=== PATIENT | male | born 1955 | race Caucasian/White ===

== ENCOUNTER 2020-07-01 10:40 | Outpatient (CLI) | payer MEDICARE, OTHER, SELFPAY ==
--- NOTE | ~2020-07-01 | MR_ITS ---
EXAMINATION: MR lumbar spine wo con DATE: 07/01/2020 11:37 INDICATION: Neurogenic claudication. Chronic low back pain with bilateral sciatica. TECHNIQUE: Magnetic resonance imaging (MRI) of the lumbar spine was performed without intravenous con trast. Sequences included sagittal T2-weighted FSE, sagittal STIR FSE, sagittal T1-weighted FSE, and axial T2-weighted FSE. COMPARISON: None FINDINGS: Bone alignment is normal. Vertebral body heights are normal. There is mildly decreased disc height from L1-L2 through L3-L4 and at L5-S1. The distal spinal cord signal intensity is normal. The conus medullaris is at L1. The bladder is markedly distended. There is mild atrophy of left kidney. The following disc levels are specifically discussed: L1-L2: The disc does not extend beyond the endplate margin. There is mild bilateral facet joint osteo arthritis. There is no neural foraminal stenosis. There is no central canal stenosis. L2-L3: The disc is bulging and has an annular fissure. There is severe bilateral facet joint osteoart hritis. There is mild bilateral neural foraminal stenosis. There is mild central canal stenosis. L3-L4: The disc is bulging and has an annular fissure. There is severe bilateral facet joint osteoart hritis. There is moderate right and mild left neural foraminal stenosis. There is mild central canal stenosis. L4-L5: The disc is bulging. There is severe right and moderate left facet joint osteoarthritis. There is mild bilateral neural foraminal stenosis. There is mild central canal stenosis. L5-S1: The disc is bulging. There is mild right and severe left facet joint osteoarthritis. There is mild bilateral neural foraminal stenosis. There is mild central canal stenosis. IMPRESSION: 1. Moderate lumbar spondylosis. Reviewed, dictated and finalized at location A.
== END 2020-07-01 10:41 | disposition home or self-care (01) ==
DX: M48.062 Spinal stenosis, lumbar region with neurogenic claudication (principal); M54.41 Lumbago with sciatica, right side; M54.42 Lumbago with sciatica, left side; G89.29 Other chronic pain; M47.816 Spondylosis without myelopathy or radiculopathy, lumbar region
CPT/HCPCS: 72148

== ENCOUNTER 2022-10-31 18:23 | Inpatient (IN) | payer MEDICARE, OTHER, SELFPAY ==
[2022-10-31] VITALS (9 sets, daily range): BP systolic 150–170; BP diastolic 87–95; PULSE 92–107; RESP 14–25; TEMP 36.6–36.7; O2SAT 94–96
--- NOTE | ~2022-10-31 | XR_ITS ---
EXAMINATION: XR chest 2V DATE: 10/31/2022 19:32 INDICATION: Heart failure. TECHNIQUE: Frontal and lateral views of the chest were obtained. COMPARISON: None. FINDINGS: There is no pneumonia, pleural effusion, or pneumothorax. The heart size is normal. There a re changes of anterior and posterior fusion procedures in cervical spine. There is an old healed righ t rib fracture. IMPRESSION: 1. No acute cardiopulmonary disease. Reviewed, dictated and finalized at location A. WIRE INSULATOR
--- NOTE | ~2022-10-31 | CT_ITS ---
CT Abdomen and Pelvis with contrast. History: Abdominal pain, testicular swelling. Spiral CT of the abdomen and pelvis was performed after the administration of intravenous contrast. 1 00 cc of Omnipaque 350 was administered intravenously without complication. Dose reduction technique was used on this scan by utilizing automated exposure control and iterative reconstruction technique. The dose-length product (DLP) was 1068.81 mGy-cm. Findings: Scans through the lung bases demonstrate mild atelectatic change. The liver, spleen, pancreas, gallbladder, and adrenal glands are within normal limits. There is moder ate to severe bilateral hydroureteronephrosis, left worse than right, extending to the level of the u rinary bladder. Ureters are tortuous bilaterally. No evidence of aortic aneurysm. No lymphadenopathy is seen. There is no evidence of bowel obstruction. There is no evidence to suggest acute appendicitis or dive rticulitis. Images through the pelvis were performed. Urinary bladder is markedly distended with extensive wall t hickening. There is mild infiltration of perivesical fat. Prostate gland is enlarged, and indents the bladder base. No ascites is seen. Impression: Urinary bladder wall thickening and infiltration of perivesical fat. These findings are suspicious fo r cystitis. Correlate with urinalysis. Moderate to severe bilateral hydroureteronephrosis with distended urinary bladder and enlarged prosta te gland. Findings could reflect chronic bladder outlet obstruction related to BPH. Neurogenic bladde r would be a potential alternative consideration. Underlying neoplasm cannot be completely excluded. Reviewed, dictated and finalized at [facility]. L VIAL GRINDER Impression: Urinary bladder wall thickening and infiltration of perivesical fat. These find ings are suspicious for cystitis. Correlate with urinalysis. Moderate to severe bilateral hydroureteronephrosis with distended urinary bladd er and enlarged prostate gland. Findings could reflect chronic bladder outlet o bstruction related to BPH. Neurogenic bladder would be a potential alternative consideration. Underlying neoplasm cannot be completely excluded.
--- NOTE | 2022-10-31 18:47 | ECG_ITS ---
Measurements Intervals [place] Rate: 89 P: 42 VT: 160 QRS: -38 QRSD: 95 T: 37 QT: 365 QTc: 445 Interpretive Statements SINUS RHYTHM LEFT AXIS DEVIATION INCOMPLETE RIGHT BUNDLE BRANCH BLOCK BASELINE ARTIFACT- I, II, AVR BORDERLINE ECG NO PREVIOUS ECG AVAILABLE FOR COMPARISON Electronically Signed On 10-31-2022 20:20:17 HYDROGRAPHIC ENGINEER by Layton Barahona D.O.
[2022-10-31 19:01] LABS: Basophils Absolute Auto 0.1 K/mm3 (0.0-0.1); Basophils Percent Auto 0.5 % (0.2-1.2); Eosinophils Absolute Auto 0.1 K/mm3 (0-0.3); Hematocrit 45.4 % (42.0-52.0); Hemoglobin 15.8 g/dL (14.0-18.0); Immature Granulocyte Absolute 0.03 K/mm3 (0.00-0.031); Immature Granulocyte Percent A 0.3 % (0-0.5); Lymphocytes Absolute Auto 1.69 K/mm3 (0.9-3.2); Lymphocytes Percent Auto 17.6 % (18.3-44.2); Mean Corpuscular HGB Conc 34.8 g/dl (32-36); Mean Corpuscular Hemoglobin 31.7 pg (26-34); Mean Platelet Volume 10.2 fl (7.4-10.4); Monocytes Absolute Auto 0.9 K/mm3 (0.1-0.6); Monocytes Percent Auto 9.2 % (2.6-8.5); Neutrophils Absolute Auto 6.9 K/mm3 (1.3-6.7); Neutrophils Percent Auto 71.4 % (45.5-73.1); Platelet Count Result 252 k/mm3 (150-375); Red Blood Count 4.99 M/mm3 (4.6-6.20); Red Cell Distribution Width 12.8 % (11.5-14.5); White Blood Count 9.6 K/mm3 (4.5-10.0)
[2022-10-31 19:14] LABS: Alanine Aminotransferase 14 U/L (6-50); Albumin Level 3.7 g/dL (3.5-5.1); Alkaline Phosphatase 60 U/L (38-126); Anion Gap 8 mmol/L (8-16); Aspartate Amino Transferase 23 U/L (17-59); Bilirubin,Total 0.7 mg/dL (0.2-1.3); Blood Urea Nitrogen 15 mg/dL (9-20); Calcium 8.4 mg/dL (8.4-10.2); Carbon Dioxide 27 mmol/L (22-30); Chloride 107 mmol/L (98-107); Estimated Glomerular Filt Rate 50; Glucose 194 mg/dL (65-110); Potassium 3.2 mmol/L (3.4-5.0); Sodium 142 mmol/L (137-145)
[2022-10-31 19:15] LABS: INR 1.1; Prothrombin Time 13.5 Seconds (11.1-14.7)
[2022-10-31 19:17] LABS: Partial Thromboplastin Time 46.9 SECONDS (22.3-36.8)
[2022-10-31 19:28] LABS: NT Pro B Type Natriuretic Pept 184 pg/mL (19.9-100); Troponin I 0.016 ng/mL (0.000-0.034)
[2022-10-31 19:35] LABS: Appearance Urine Clear (Clear); Bilirubin Urine Negative (Negative); Blood Urine Trace-lysed (Negative); Color Urine Yellow (Yellow); Glucose Urine UA 2+ mg/dL (Negative); Ketones Urine Negative (Negative); Leukocyte Esterase Ur Negative LEU/UL (Negative); Nitrate Urine Negative (Negative); Protein Urine 3+ mg/dL (Negative); Specific Grav Ur 1.015 (1.001-1.035); Urobilinogen Urine 0.2 mg/dL (<2.0); pH Urine 5.5 (5.0-9.0)
[2022-10-31 19:45] LABS: Amorphous Sediment Urine Few; Bacteria Urine Trace /hpf; Mucus Urine Rare /lpf; RBC Urine 0-2 /hpf (0-2); WBC Urine 0-3 /hpf
[2022-10-31 19:46] LABS: Add Urine Microscopic? YES
[2022-11-01] VITALS (20 sets, daily range): BP systolic 131–169; BP diastolic 70–97; PULSE 78–113; RESP 14–25; TEMP 36.2–36.4; O2SAT 92–98; BMI 30.7
--- NOTE | 2022-11-01 01:30 | ED.GENADULT ---
HPI - General Adult General Chief complaint: Urogenital-Male <Elaine Stephenson PA-C - Last Filed: 11/01/22 03:01> Stated complaint: swollen testicles <ANEL Dowell Last Filed: 11/01/22 03:01> Time Seen by Provider: 11/01/22 00:06 <ANEL Dowell Last Filed: 11/01/22 03:01> Source: patient <ANEL Dowell Last Filed: 11/01/22 03:01> Mode of arrival: ambulatory <ANEL Dowell Last Filed: 11/01/22 03:01> Limitations: no limitations <ANEL Dowell Last Filed: 11/01/22 03:01> History of Present Illness HPI narrative: Patient is a 67-year-old male, w/ PMHx of DM, who presents to the ED with report of lower extremity and scrotal swelling. Patient reports having intermittent lower extremity edema in his feet and lower legs for the past 1.5 months. He has been evaluated by his primary care doctor for this and had a thorough work-up, which he reports did not show any abnormalities with his heart, kidneys, or liver. The swelling has continued to worsen and extend up into his abdomen. Over the last 1 week he has had intermittent pain throughout his lower abdomen. He also reports he developed swelling in his scrotum today. Denies any testicular pain. He also reports having urinary frequency and small void urines, dysuria, but denies nausea, vomiting, fevers, chest pain, difficulty breathing. <ANEL Dowell Last Filed: 11/01/22 03:01> Related Data Home medications: Home Medications Medication Instructions Recorded Confirmed aspirin 81 mg tablet,delayed 81 mg PO DAILY 10/31/22 10/31/22 release carvedilol 3.125 mg tablet 3.125 mg PO DAILY 10/31/22 10/31/22 cholecalciferol (vitamin D3) 50 50 mcg PO DAILY 10/31/22 10/31/22 mcg (2,000 unit) tablet cholecalciferol (vitamin D3) 50 50 mcg PO DAILY 10/31/22 10/31/22 mcg (2,000 unit) tablet cyclobenzaprine 5 mg tablet 5 mg PO PRN PRN Anesthesia 10/31/22 10/31/22 empagliflozin 10 mg tablet 10 mg PO DAILY 10/31/22 10/31/22 (Jardiance) ezetimibe 10 mg tablet 10 mg PO DAILY 10/31/22 10/31/22 gabapentin 600 mg tablet 600 mg PO TID 10/31/22 10/31/22 gabapentin 600 mg tablet mg 10/31/22 insulin glargine 100 unit/mL 60 unit subcut HS 10/31/22 10/31/22 subcutaneous solution (Lantus U-100 Insulin) insulin syringe-needle U-100 1 mL 10/31/22 10/31/22 30 gauge x 1/2 (BD Insulin Syringe Ultra-Fine) lisinopril 40 mg tablet 40 mg PO DAILY 10/31/22 10/31/22 lisinopril 40 mg tablet 40 mg PO DAILY 10/31/22 10/31/22 pantoprazole 40 mg tablet,delayed 40 mg PO HS 10/31/22 10/31/22 release pravastatin 40 mg tablet 40 mg PO HS 10/31/22 10/31/22 sitagliptin phos 50 mg-metformin 50 - 1,000 tablet PO DAILY 10/31/22 10/31/22 ER 1,000 mg tablet,extend rel 24h mp (Janumet XR) sitagliptin phosphate 50 mg tablet mg 10/31/22 (Januvia) zolpidem 10 mg tablet 10 mg PO DAILY 10/31/22 10/31/22 <Elaine Stephenson PA-C - Last Filed: 11/01/22 03:01> Allergies/adverse reactions: Allergies Allergy/AdvReac Type Severity Reaction Status Date / Time acetaminophen [From Vicodin] Allergy Hives Verified 10/31/22 23:26 hydrocodone [From Vicodin] Allergy Hives Verified 10/31/22 23:26 Penicillins AdvReac Fainting Verified 10/31/22 23:26 <Elaine Stephenson PA-C - Last Filed: 11/01/22 03:01> Review of Systems Review of Systems: CONSTITUTIONAL: Denies fever, chills, or sweats. CARDIOVASCULAR: See HPI. RESPIRATORY: Denies cough or dyspnea. GASTROINTESTINAL: See HPI. GENITOURINARY: See HPI. SKIN: Denies rash or itching. <Elaine Stephenson PA-C - Last Filed: 11/01/22 03:01> All systems reviewed & are unremarkable except as noted in HPI and below <Elaine Stephenson PA-C - Last Filed: 11/01/22 03:01> [facility] Past Medical History Medical History: Medical History (Updated 11/01/22 @ 02:50 by Elaine Stephenson PA-C) Diabetes melli
[2022-11-01] MEDS: POTASSIUM CHLORIDE 20 MEQ TABLET 40 MEQ PO (03:13)
--- NOTE | 2022-11-01 03:13 | PC.NURSE ---
Indwelling catheter inserted per provider order. Urethra passage swollen shut d/t edema. Catheter successfully inserted on first attempt with urine return. Urine yellow for the first 200 mLs, followed with blood tinged urine. 3300 total out. Provider informed of hematuria and comes to pt room to observe. Situation communicated to receiving nurse, to monitor or patency and possible need to initiate CBI.
[2022-11-01] MEDS: ONDANSETRON INJ 4 MG/2 ML VIAL (03:27)
[2022-11-01] MEDS: MORPHINE SULFATE (*CRX) 4 MG/ML INJ (03:27)
[2022-11-01 03:50] LABS: Influenza A QL RT-PCR Negative (Negative); Influenza B QL RT-PCR Negative (Negative); SARS-CoV-2 RNA PCR Negative
--- NOTE | 2022-11-01 04:46 | ADMGEN ---
This patient, Maikel Campos III, was admitted to [facility] Surg Room 326-01. Patient/family oriented to hospital policies and general routines including ID bracelet, bed and alarms, visiting hours, pain management, procedures, bathroom and other care routines, personal items, smoking policy, room service/diet, and visiting hours. Information on how to activate the Rapid Response Team has been discussed. Patient/Family are encouraged to report perceived risks to care and to ask questions if they do not understand what they are told or what they should do.
--- NOTE | 2022-11-01 06:00 | PM.IMHP ---
H&P: HPI History of Present Illness Date/Time: 11/01/22 06:00 Chief Complaint: Leg and scrotal edema Narrative: 67-year-old male with past medical history of type 2 diabetes mellitus, hyperlipidemia, hypertension, chronic kidney disease and GERD who presented to the ER due to lower extremity swelling that is progressed up into his abdomen and difficulty with urination. He reports that on the 2nd week in September approximately 6 weeks ago he began having lower extremity swelling. At same time he noticed difficulty getting any urine out. He was having go the bathroom and strain multiple times. It was associated with pressure in his suprapubic region. He reported that the that lasted for about 2 weeks he then drink his usual 12 shots of hard liquor which he usually does every Friday. At next morning he was able to urinate back to his normal. However, he does report that his normal urine output is accompanied by frothy urine. He reports that his urine has always looked like the foam on the top of a beer. I asked the patient about chronic kidney disease. He stated that his doctor told him that if he did not go see someone that he was likely going to have major problems with his kidneys. It sounds like he saw Dr. Hernandez and he states that he was told that his kidneys were fine. However he did not actually see a citizenship instructor. In the ER UA demonstrated 3+ proteinuria. The patient reports that his lower extremity edema has waxed and waned to some extent but when it recurred approximately 3 weeks ago it was more persistent and they edema progressed up his legs and into his lower abdomen. He has marked scrotal edema. He reports that he has been having a run back and forth the bathroom so frequently to try to urinate that he has developed such a thing in bruising on his thighs and scrotum. He has been having small voids, urinary frequency and reports discomfort with urination due to the amount that he is straining. He has had some small amounts of incontinent stool due to straining to urinate. He denies any hematuria or dark urine. He denies any hematochezia or melena. Otherwise is stools when he has have a bowel movement went are normally formed. He denies any orthopnea or paroxysmal nocturnal dyspnea. He has not had any palpitations. Prior to his acute symptoms of urinary retention he denied any preceding or progressive weak urinary stream or difficulty starting or stopping his urine stream. He denied any sensation of incomplete bladder emptying prior to these acute symptoms. [facility] Past Medical History Medical History Chronic kidney disease Diabetes mellitus Essential hypertension HTN (hypertension) Hyperlipidemia Tobacco use disorder, continuous Surgical History Surgical History History of arthroscopy of left shoulder History of carpal tunnel release History of neck surgery X3 History of shoulder surgery Right shoulder reconstruction due to advance arthritis History of tonsillectomy and adenoidectomy S/P cubital tunnel release Right Status post cataract extraction of both eyes with insertion of intraocular lens Family History Family History Sibling Liver cancer Lung cancer Mother Cerebrovascular accident Father Suicide Social History Social History Social History: He is . Smoking packs per day: 1.5 Smoking cigarettes per day: 30.0 Years smoked: 50 Smoking pack-years: 75.00 Smoking status: Current every day smoker Tobacco type: cigarettes Alcohol intake: current Drinks per week: 12 Alcohol use details: He drinks 12 shots every Friday. Other substance usage details: pack and a half daily smoker Lack of Transportation: No Lack of Food: Never True Current Housing:
[2022-11-01 08:24] LABS: Glucose Point of Care 121 mg/dl (65-105)
[2022-11-01] MEDS: CHOLECALCIFEROL 1,000 UNITS TABLET 2000 UNITS PO (10:17)
[2022-11-01] MEDS: lisinopriL 20 MG TABLET 40 MG PO (10:17)
[2022-11-01] MEDS: carvediloL 3.125 MG TABLET PO (10:17)
[2022-11-01] MEDS: metFORMIN HCL XR 500 MG TAB.SR.24H 1000 MG PO (10:17)
[2022-11-01] MEDS: GABAPENTIN 300 MG CAPSULE 600 MG PO ×3 (10:24→17:15)
[2022-11-01] MEDS: EMPAGLIFLOZIN 10 MG TABLET PO (10:25)
[2022-11-01] MEDS: ASPIRIN 81 MG ENTERIC TABLET PO (10:25)
[2022-11-01] MEDS: TAMSULOSIN HCL 0.4 MG CAPSULE PO (10:25)
[2022-11-01 11:55] LABS: Glucose Point of Care 161 mg/dl (65-105)
--- NOTE | 2022-11-01 13:02 | PM.IMPN ---
Progress Note: A&P Assessment and Plan (1) Acute bilateral obstructive uropathy: Code(s): N13.9 - Obstructive and reflux uropathy, unspecified Status: Acute Assessment and Plan: Patient presents with LE edema. CT reviewed and showing bladder wall thickening and fat stranding as well as severe bilateral hydrourteronephrosis with distended bladder. BPH noted. Radiology agrees with these findings. Suspect BPH with obstruction and possibly nephrotic syndrome. No blood by UA but now having gross hematuria felt related to bladder decompression. Will add CBI. Urology consult ordered. (2) Hydroureteronephrosis: Code(s): N13.30 - Unspecified hydronephrosis Status: Acute Assessment and Plan: Related to obstructive process. As above (3) Chronic kidney disease: Code(s): N18.9 - Chronic kidney disease, unspecified Status: Acute Assessment and Plan: Patient has history of CKD but his baseline numbers are unknown.? He may have a component of acute kidney injury on chronic kidney disease given evidence of obstructive symptoms.? Given the nature of his edema/anasarca and that he has 3+ proteinuria, the patient may have nephrotic syndrome.?Check urine studies. Nephrology has been consulted. (4) Proteinuria: Qualifiers: Proteinuria type: unspecified Qualified Code(s): R80.9 - Proteinuria, unspecified Code(s): R80.9 - Proteinuria, unspecified Status: Acute Assessment and Plan: As above. (5) Type 2 diabetes mellitus with hyperglycemia, with long-term current use of insulin: Code(s): E11.65 - Type 2 diabetes mellitus with hyperglycemia; Z79.4 - jail (current) use of insulin Status: Acute Assessment and Plan: The patient's blood glucose was reviewed on 11/01 Glucose remains well controlled. Continue AccuCheks covering with sliding scale. Hypoglycemia protocol available as needed. Continue current medications. (6) Tobacco use disorder, continuous: Code(s): F17.209 - Nicotine dependence, unspecified, with unspecified nicotine-induced disorders Status: Acute Assessment and Plan: Tobacco cessation was encouraged. Time Spent With Patient Time: 40 minutes spent on this encounter Subjective Date/time seen: 11/01/22 13:02 Interval history: 67yo male with DM, HTN and CKD here for lower extremity edema. Patient denies having hematuria at home prior to admission. He denies any abdominal pain or back pain. He has a Riggs catheter in place now and is feeling urgency at times to void. Has noted that his appetite has improved since admission. Exam Narrative: Gen - NARD Chest - CTA bilaterally, nml RR CV - RRR S1/S2 Abd - Soft, NT/ND, Positive BS - dark red urine in tubing and Riggs bag. Ext - trace-1+ pedal edema Psych - Nml mood and affect Skin - Warm and dry. dry, scaly skin bilat LE Objective Data Vital Signs Vital Signs: Vital Signs - 24 hr 10/31/22 18:44 10/31/22 22:54 11/01/22 04:36 Temperature 97.8 F 98.0 F Pulse Rate 101 H 99 99 Respiratory Rate 14 25 H 20 Blood Pressure 159/87 H 170/95 H 164/87 H Pulse Oximetry 94 95 95 Oxygen Delivery Room Air Room Air 10/31/22 22:53 10/31/22 23:00 10/31/22 23:02 Temperature Pulse Rate 107 H 105 H 102 H Respiratory Rate 14 25 H 22 H Blood Pressure 150/95 H Pulse Oximetry 96 94 95 Oxygen Delivery 10/31/22 23:16 10/31/22 23:30 10/31/22 23:31 Temperature Pulse Rate 104 H 100 96 Respiratory Rate 18 23 H 24 H Blood Pressure 166/88 H Pulse Oximetry Oxygen Delivery 10/31/22 23:45 11/01/22 00:00 11/01/22 00:02 Temperature Pulse Rate 92 82 90 Respiratory Rate 21 H 18 25 H Blood Pressure 163/93 H Pulse Oximetry Oxygen Delivery 11/01/22 00:16 11/01/22 00:30 11/01/22 00:31 Temperature Pulse Rate 98 96 103 H Respiratory Rate 19 16 19 Blood Pressure 169/97 H Pulse Oxime
--- NOTE | 2022-11-01 14:20 | P.CONNP_ITS ---
Assessment and Plan Assessment and plan (1) Proteinuria: Qualifiers: Proteinuria type: unspecified Qualified Code(s): R80.9 - Proteinuria, unspecified Code(s): R80.9 - Proteinuria, unspecified Status: Acute Assessment and Plan: * as note by history and random urine testing * noted to > 15 grams of proteinuria (!) * however, given #2, will recheck this in a few days * if still persistent, will proceed with further serological testing (2) Hydroureteronephrosis: Code(s): N13.30 - Unspecified hydronephrosis Status: Acute Assessment and Plan: * as noted by admission CT scan * adhikari catheter in place * post-obstructive diuresis noted * follow I/Os * Urology consulted (3) Elevated serum creatinine: Code(s): R79.89 - Other specified abnormal findings of blood chemistry Status: Acute Assessment and Plan: * acute versus chronic?? * creatinine could just be a manifestion of his obstruction * follow repeat labs (4) Anasarca: Code(s): R60.1 - Generalized edema Status: Acute Assessment and Plan: * due to obstruction versus proteinuria/nephrotic syndrome versus combination of both * follow swelling/edema with current interventions * could use diuretics but would follow I/Os given post-obstructive diuresis (5) HTN (hypertension): Code(s): I10 - Essential (primary) hypertension Status: Chronic Assessment and Plan: * reasonable control for now * follow trend with ongoing post obstructive diuresis (6) Type 2 diabetes mellitus with hyperglycemia, with long-term current use of insulin: Code(s): E11.65 - Type 2 diabetes mellitus with hyperglycemia; Z79.4 - corporate controller (current) use of insulin Status: Chronic Assessment and Plan: * follow accuchecks * glycemic control Will continue to follow. History of Present Illness Reason for Consult Consult date: 11/01/22 Reason for consult: acute renal failure Chief Complaint Chief complaint: Obstructive uropathy,bilhydroureteronephrosis,prot History of Present Illness Narrative: The patient is a 67-year-old male with a past medical history as outlined below who presented to [facility] Emergency room due to complaints of increasing swelling/edema in association with difficulty u rinating. The patient reports that approximately six leaks ago he started noting swelling particularly in his lower extremities. Around that same time. He also noted difficulty with urination. He had the urge to urinate but whenever he trend tempted to do so he had to strain multiple times to actually void. It was around the same time that he has also noticed some pressures/pain in his suprap ubic area as well. All the symptoms seem to resolve after about two weeks without any clear intervention. He does mention that when he does urinate his urine is quite bubbly/frothy. however, his lower extremity edema has persisted and seems to have progressed with swelling now up to his upper abdomen. The symptoms eventually led to him coming to the ER for further assessment. Workup and evaluation in the emergency room demonstrated significant swelling edema almost to the point of anasarca. His edema is present in his feet, lower extremities, scrotal area, and lower abdomen. Urinalysis was significant for 3+ protein and routine blood test did demonstrate mild renal insufficiency with a creatinine of 1.4 mg/dL (but his baseline creatinine is not known). Given his constellation of symptoms as mentioned above, he underwent a CT
--- NOTE | 2022-11-01 14:20 | PM.CNNEP ---
Assessment and Plan Assessment and plan (1) Proteinuria: Qualifiers: Proteinuria type: unspecified Qualified Code(s): R80.9 - Proteinuria, unspecified Code(s): R80.9 - Proteinuria, unspecified Status: Acute Assessment and Plan: as note by history and random urine testing noted to > 15 grams of proteinuria (!) however, given #2, will recheck this in a few days if still persistent, will proceed with further serological testing (2) Hydroureteronephrosis: Code(s): N13.30 - Unspecified hydronephrosis Status: Acute Assessment and Plan: as noted by admission CT scan adhikari catheter in place post-obstructive diuresis noted follow I/Os Urology consulted (3) Elevated serum creatinine: Code(s): R79.89 - Other specified abnormal findings of blood chemistry Status: Acute Assessment and Plan: acute versus chronic?? creatinine could just be a manifestion of his obstruction follow repeat labs (4) Anasarca: Code(s): R60.1 - Generalized edema Status: Acute Assessment and Plan: due to obstruction versus proteinuria/nephrotic syndrome versus combination of both follow swelling/edema with current interventions could use diuretics but would follow I/Os given post-obstructive diuresis (5) HTN (hypertension): Code(s): I10 - Essential (primary) hypertension Status: Chronic Assessment and Plan: reasonable control for now follow trend with ongoing post obstructive diuresis (6) Type 2 diabetes mellitus with hyperglycemia, with long-term current use of insulin: Code(s): E11.65 - Type 2 diabetes mellitus with hyperglycemia; 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 History of Present Illness Reason for Consult Consult date: 11/01/22 Reason for consult: acute renal failure Chief Complaint Chief complaint: Obstructive uropathy,bilhydroureteronephrosis,prot History of Present Illness Narrative: The patient is a 67-year-old male with a past medical history as outlined below who presented to [facility] Emergency room due to complaints of increasing swelling/edema in association with difficulty urinating. The patient reports that approximately six leaks ago he started noting swelling particularly in his lower extremities. Around that same time. He also noted difficulty with urination. He had the urge to urinate but whenever he trend tempted to do so he had to strain multiple times to actually void. It was around the same time that he has also noticed some pressures/pain in his suprapubic area as well. All the symptoms seem to resolve after about two weeks without any clear intervention. He does mention that when he does urinate his urine is quite bubbly/frothy. however, his lower extremity edema has persisted and seems to have progressed with swelling now up to his upper abdomen. The symptoms eventually led to him coming to the ER for further assessment. Workup and evaluation in the emergency room demonstrated significant swelling edema almost to the point of anasarca. His edema is present in his feet, lower extremities, scrotal area, and lower abdomen. Urinalysis was significant for 3+ protein and routine blood test did demonstrate mild renal insufficiency with a creatinine of 1.4 mg/dL (but his baseline creatinine is not known). Given his constellation of symptoms as mentioned above, he underwent a CT scan of the abdomen pelvis which demonstrated Moderate to severe bilateral hydroureteronephrosis with distended urinary bladder and enlarged prostate gland. Urology was consulted from the ER with recommendation for placement of a Adhikari catheter for decompression and the patient was subsequently admitted to the hospital for further evaluation and therapy. Renal consultation was req
[2022-11-01 14:50] LABS: Albumin Level 2.9 g/dL (3.5-5.1); Anion Gap 3 mmol/L (8-16); Blood Urea Nitrogen 17 mg/dL (9-20); CRP 4.3 mg/dL (<1.0); Calcium 8.3 mg/dL (8.4-10.2); Carbon Dioxide 30 mmol/L (22-30); Chloride 107 mmol/L (98-107); Creatine Kinase 63 U/L (55-170); Estimated CRCL calculation 51 ml/min; Estimated Glomerular Filt Rate 50; Glucose 172 mg/dL (65-110); Phosphorus 3.4 mg/dL (2.5-4.5); Potassium 3.6 mmol/L (3.4-5.0); Sodium 140 mmol/L (137-145)
[2022-11-01 14:52] LABS: Complement C3 94 mg/dL (88-165)
--- NOTE | 2022-11-01 15:44 | WPDURCON ---
Assessment and Plan Assessment and plan (1) Hydroureteronephrosis: Code(s): N13.30 - Unspecified hydronephrosis Status: Acute Assessment and Plan: Will plan to get a JOSHUA tomorrow to ensure it has improved s/p catheter placement. Likely secondary to outlet obstruction versus possible neurogenic bladder. (2) Scrotal edema: Code(s): N50.89 - Other specified disorders of the male genital organs Status: Acute Assessment and Plan: Get scrotal US to further evaluate. (3) Gross hematuria: Code(s): R31.0 - Gross hematuria Status: Acute Assessment and Plan: Remove current adhikari, replace with 3 way adhikari and start CBI. I irrigated with 750cc of Sterile Water and did not remove any clots, but was unable to get the urine to clear. A culture was sent, although UA is negative for concern of UTI. Likely secondary to catheter insertion with moderate to severe BPH. He will need a cystoscopy as an outpatient unless bleeding cannot be controlled, then a cystoscopy while in house may be necessary. Will re-assess tomorrow. (4) Annabelle albicans infection: Code(s): B37.9 - Candidiasis, unspecified Status: Acute Assessment and Plan: Bilateral groin, start Nystatin cream to affected areas as prescribed. Urology Consult Note HPI Date Seen: 11/01/22 Time Seen: 15:44 Requesting Physician: Shalonda Del Valle DO Primary Care Provider: VERNON Consult Narrative Reason for consult: Retention/Hydronephrosis/Gross Hematuria Narrative: Maikel Campos III is a 67 year old male who presented to the ER early this morning for inability to urinate. He states he started having trouble urinating one week ago with frequency, urgency and straining. He also c/o scrotal edema. He is tachycardic, afebrile and has a WBC of 9.6, creatinine of 1.40, UA is negative, but a culture has been collected. A CT scan was done in the ER which shows moderate to severe Bilateral Hydronephrosis with a distended bladder and BPH. A catheter was placed in the ER and has been draining well since, but urine is grossly bloody. No clots are noted. He denies previous history of BPH that he is aware of. Review of Systems Cardiovascular: Cardiovascular: Denies chest pain Respiratory: Respiratory: Reports no additional respiratory complaints Genitourinary: Genitourinary: Reports hematuria, Reports urinary frequency, Reports urinary hesitancy and Reports urinary urgency PMFSH Past Medical History Medical History Chronic kidney disease Diabetes mellitus Essential hypertension HTN (hypertension) Hyperlipidemia Tobacco use disorder, continuous Surgical History Surgical History History of arthroscopy of left shoulder History of carpal tunnel release History of neck surgery X3 History of shoulder surgery Right shoulder reconstruction due to advance arthritis History of tonsillectomy and adenoidectomy S/P cubital tunnel release Right Status post cataract extraction of both eyes with insertion of intraocular lens Family History Family History Sibling Liver cancer Lung cancer Mother Cerebrovascular accident Father Suicide Social History Social History Social History: He is . Smoking packs per day: 1.5 Smoking cigarettes per day: 30.0 Years smoked: 50 Smoking pack-years: 75.00 Smoking status: Current every day smoker Tobacco type: cigarettes Alcohol intake: current Drinks per week: 12 Alcohol use details: He drinks 12 shots every Friday. Other substance usage details: pack and a half daily smoker Lack of Transportation: No Lack of Food: Never True Current Housing: I Have Housing Concerned About Future Housing: No Diff
[2022-11-01 16:08] LABS: Creatinine Urine 38.8 mg/dL
[2022-11-01 16:18] LABS: Potassium Urine Random 16.9 meq/L; Sodium Urine Random 82 meq/L
[2022-11-01 16:22] LABS: Eosinophil Urine None Seen % (None Seen)
[2022-11-01 16:33] LABS: Total Protein Urine Random > 600 mg/dL
[2022-11-01 17:08] LABS: Glucose Point of Care 139 mg/dl (65-105)
[2022-11-01] MEDS: INSULIN GLARGINE (*BKC) 100 UNITS/ML 60 UNITS SUB-Q (20:12)
[2022-11-01] MEDS: PANTOPRAZOLE 40 MG TABLET PO (20:12)
[2022-11-01] MEDS: PRAVASTATIN SODIUM 20 MG TABLET 40 MG PO (20:12)
[2022-11-01] MEDS: MICONAZOLE NITRATE 2% CREAM 30 GM TUBE 1 APPLIC TOPICAL (20:12)
[2022-11-01 20:28] LABS: Glucose Point of Care 117 mg/dl (65-105)
[2022-11-02 05:16] VITALS: BP 166/80; PULSE 89; RESP 18; TEMP 36.6; O2SAT 90
[2022-11-02 06:28] LABS: Basophils Absolute Auto 0.1 K/mm3 (0.0-0.1); Basophils Percent Auto 0.5 % (0.2-1.2); Eosinophils Absolute Auto 0.1 K/mm3 (0-0.3); Hematocrit 41.1 % (42.0-52.0); Hemoglobin 14.2 g/dL (14.0-18.0); Immature Granulocyte Absolute 0.07 K/mm3 (0.00-0.031); Immature Granulocyte Percent A 0.7 % (0-0.5); Lymphocytes Absolute Auto 2.24 K/mm3 (0.9-3.2); Mean Corpuscular HGB Conc 34.5 g/dl (32-36); Mean Corpuscular Hemoglobin 31.6 pg (26-34); Mean Corpuscular Volume 91.3 fl (80-100); Mean Platelet Volume 10.4 fl (7.4-10.4); Monocytes Absolute Auto 0.8 K/mm3 (0.1-0.6); Monocytes Percent Auto 7.8 % (2.6-8.5); Neutrophils Absolute Auto 7.4 K/mm3 (1.3-6.7); Platelet Count Result 239 k/mm3 (150-375); Red Cell Distribution Width 12.6 % (11.5-14.5); White Blood Count 10.7 K/mm3 (4.5-10.0)
[2022-11-02 06:42] LABS: Albumin Level 3.3 g/dL (3.5-5.1); Anion Gap 5 mmol/L (8-16); Blood Urea Nitrogen 12 mg/dL (9-20); Calcium 8.4 mg/dL (8.4-10.2); Carbon Dioxide 30 mmol/L (22-30); Chloride 102 mmol/L (98-107); Estimated CRCL calculation 70 ml/min; Estimated Glomerular Filt Rate > 60; Glucose 63 mg/dL (65-110); Magnesium 1.3 mg/dL (1.6-2.3); Phosphorus 3.1 mg/dL (2.5-4.5); Sodium 137 mmol/L (137-145)
[2022-11-02 08:21] LABS: Glucose Point of Care 67 mg/dl (65-105)
[2022-11-02] MEDS: FINASTERIDE 5 MG TABLET PO (08:59)
[2022-11-02] MEDS: metFORMIN HCL XR 500 MG TAB.SR.24H 1000 MG PO (09:00)
[2022-11-02] MEDS: GABAPENTIN 300 MG CAPSULE 600 MG PO ×3 (09:01→16:50)
[2022-11-02] MEDS: MICONAZOLE NITRATE 2% CREAM 30 GM TUBE 1 APPLIC TOPICAL ×2 (09:01→20:48)
[2022-11-02] MEDS: TAMSULOSIN HCL 0.4 MG CAPSULE PO (09:01)
[2022-11-02] MEDS: MAGNESIUM SULFATE 3GM/D5W100ML 3 GM/100 ML BAG IVPB (09:02)
[2022-11-02] MEDS: CHOLECALCIFEROL 1,000 UNITS TABLET 2000 UNITS PO (09:02)
[2022-11-02] MEDS: ASPIRIN 81 MG ENTERIC TABLET PO (09:04)
[2022-11-02] MEDS: lisinopriL 20 MG TABLET 40 MG PO (09:04)
[2022-11-02] MEDS: EMPAGLIFLOZIN 10 MG TABLET PO (09:04)
[2022-11-02] MEDS: carvediloL 3.125 MG TABLET PO (09:04)
[2022-11-02] MEDS: POTASSIUM CHLORIDE 20 MEQ TABLET 40 MEQ PO (09:14)
--- NOTE | 2022-11-02 10:38 | WPDURCON ---
Assessment and Plan Assessment and plan (1) Gross hematuria: Code(s): R31.0 - Gross hematuria Status: Acute Plan Urinary retention due to BPH. Hematuria d/t traumatic catheter removal -> now resolved with catheter placement. No plans for addtional intervention from our standpoint. Home with indwelling catheter with outpatient follow-up in 2-3 weeks. Urology Consult Note HPI Date Seen: 11/02/22 Requesting Physician: Shalonda Del Valle DO Primary Care Provider: [facility] Consult Narrative Narrative: Maikel Campos III is a 67 year old male known to Dr. Jackson with history of recurrent gross hematuria and urinary retention. He was recently admitted [facility] with acute kidney injury. He failed a voiding trial at that time and was discharged with an indwelling catheter. He presents to the emergency department after having traumatically removed the Riggs catheter. Review of Systems Review of Systems: ROS unobtainable: Yes unobtainable due to mental status PMFSH Past Medical History Medical History Chronic kidney disease Diabetes mellitus Essential hypertension HTN (hypertension) Hyperlipidemia Tobacco use disorder, continuous Surgical History Surgical History History of arthroscopy of left shoulder History of carpal tunnel release History of neck surgery X3 History of shoulder surgery Right shoulder reconstruction due to advance arthritis History of tonsillectomy and adenoidectomy S/P cubital tunnel release Right Status post cataract extraction of both eyes with insertion of intraocular lens Family History Family History Sibling Liver cancer Lung cancer Mother Cerebrovascular accident Father Suicide Social History Social History Social History: He is . Smoking packs per day: 1.5 Smoking cigarettes per day: 30.0 Years smoked: 50 Smoking pack-years: 75.00 Smoking status: Current every day smoker Tobacco type: cigarettes Alcohol intake: current Drinks per week: 12 Alcohol use details: He drinks 12 shots every Friday. Other substance usage details: pack and a half daily smoker Lack of Transportation: No Lack of Food: Never True Current Housing: I Have Housing Concerned About Future Housing: No Difficulty Paying Gas/Electric Bills: No Difficulty Paying for Meds: No Currently Unemployed: No Education: Decline to Answer Difficulty w/ Childcare or Family Care: No Gender identity (if verbalized by the patient): Male Sexual Orientation (if Verbalized by the Patient): Straight or Heterosexual Spiritual care concerns: No Agree to blood products: Yes Meds Home Medications and Allergies Home Medications Medication Instructions Recorded Confirmed Type aspirin 81 mg tablet,delayed 81 mg PO DAILY 10/31/22 10/31/22 History release carvedilol 3.125 mg tablet 3.125 mg PO DAILY 10/31/22 10/31/22 History cholecalciferol (vitamin D3) 50 50 mcg PO DAILY 10/31/22 10/31/22 History mcg (2,000 unit) tablet empagliflozin 10 mg tablet 10 mg PO DAILY 10/31/22 10/31/22 History (Jardiance) ezetimibe 10 mg tablet 10 mg PO DAILY 10/31/22 10/31/22 History gabapentin 600 mg tablet 600 mg PO TID 10/31/22 10/31/22 History insulin glargine 100 unit/mL 60 unit subcut HS 10/31/22 10/31/22 History subcutaneous solution (Lantus U-100 Insulin) insulin syringe-needle U-100 1 mL 10/31/22 10/31/22 History 30 gauge x 1/2 (BD Insulin Syringe Ultra-Fine) lisinopril 40 mg tablet 40 mg PO DAILY 10/31/22 10/31/22 History pantoprazole 40 mg tablet,delayed 40 mg PO HS 10/31/22 10/31/22 History release pravastatin 40 mg tablet 40 mg PO HS 10/31/22 10/31/22 History sitagliptin phos 5
--- NOTE | 2022-11-02 10:47 | WPDUROPN2 ---
Progress Note: A&P Assessment and Plan (1) Gross hematuria: Code(s): R31.0 - Gross hematuria Status: Acute (2) Hydroureteronephrosis: Code(s): N13.30 - Unspecified hydronephrosis Status: Acute (3) Urinary retention due to benign prostatic hyperplasia: Code(s): N40.1 - Benign prostatic hyperplasia with lower urinary tract symptoms; R33.8 - Other retention of urine Status: Acute Assessment and Plan: Urinary retention due to BPH. Hematuria due to rapid decompression of overdistended bladder. Will stop CPI today. Anticipate discharge tomorrow (barring other medical issues) with indwelling catheter. He should remain on Tamsulosin and Finasterid with f/u for voiding trial and repeat renal u/s in 1-2 weeks. Subjective Subjective Date/Time Seen: 11/02/22 10:47 Comfortable, tolerating catheter Review of Systems Cardiovascular: Cardiovascular: Denies chest pain, Denies lightheadedness, Denies palpitations and Denies dyspnea Respiratory: Respiratory: Denies dyspnea Gastrointestinal: Gastrointestinal: Denies diarrhea, Denies nausea and Denies vomiting Genitourinary: Genitourinary: Denies hematuria and Denies dysuria Endocrine: Endocrine: Denies palpitations Exam Const: General: no acute distress Resp: Effort & Inspection: normal respiratory effort GI: Inspection: non-distended GI Palp: No abdominal tenderness and No Guarding due to palpation present (GI) Auscultation: normal bowel sounds Urinary Catheter: Urinary Catheter: patent and draining and urine clear Objective Data Vital Signs Vital Signs: Vital Signs - 24 hr 11/01/22 14:14 11/01/22 21:27 11/01/22 20:00 Temperature 97.5 F L 97.2 F L Pulse Rate 88 78 Respiratory Rate 18 18 Blood Pressure 131/71 150/70 H Pulse Oximetry 95 94 Oxygen Delivery Room Air 11/02/22 05:16 Temperature 98 F Pulse Rate 89 Respiratory Rate 18 Blood Pressure 166/80 H Pulse Oximetry 90 Oxygen Delivery Intake/Output Intake/Output: Intake & Output 10/30/22 10/31/22 11/01/22 11/02/22 23:59 23:59 23:59 23:59 Intake Total 8590 25258 Output Total 10276 21349 Balance -3632 -5598 Meds/Results Medications: Active Medications Generic Name Dose Route Start Last Admin Trade Name Freq PRN Reason Stop Dose Admin Aspirin 81 mg 11/01/22 09:00 11/02/22 09:04 Aspirin 81 Mg Enteric Tablet PO 81 mg DAILY DAVIS Administration Carvedilol 3.125 mg 11/01/22 09:00 11/02/22 09:04 Carvedilol 3.125 Mg Tablet PO 3.125 mg DAILY DAVIS Administration Dextrose 12.5 gm 11/01/22 08:25 Dextrose 50% 25 Gm/50 Ml Syringe IV PUSH PRN PRN Hypoglycemia Protocol Empagliflozin 10 mg 11/01/22 09:00 11/02/22 09:04 Empagliflozin 10 Mg Tablet PO 10 mg DAILY DAVIS Administration Finasteride 5 mg 11/02/22 09:00 11/02/22 08:59 Finasteride 5 Mg Tablet PO 5 mg QAM DAVIS Administration Gabapentin 600 mg 11/01/22 09:00 11/02/22 09:01 Gabapentin 300 Mg Capsule PO 600 mg TID DAVIS Administration Glucagon 1 mg 11/01/22 08:25 Glucagon For Inj 1 Mg Vial IM PRN PRN Hypoglycemia Protocol Glucose 15 gm 11/01/22 08:25 Glucose Oral Gel 15 Gm Of Glucse In 37.5 Gm Tube PO PRN PRN Hypoglycemia Protocol Dextrose 1,000 mls @ 100 mls/hr 11/01/22 08:25 Dextrose 5% 1,000 Ml IVPB PRN PRN Hypoglycemia Protocol Insulin Aspart 2 - 5 units 11/01/22 08:00 11/02/22 09:09 Insulin Aspart (*Bkc) 100 Units/Ml SUB-Q Not Given TIDWM [facility] Protocol Insulin Glargine 45 units 11/02/22 21:00 Insulin Glargine (*Bkc) 100 Units/Ml SUB-Q HS [facility] Lisinopril 40 mg 11/01/22 09:00 11/02/22 09:04 Lisinopril 20 Mg Tablet PO 40 mg DAILY DAVIS Administration Metformin HCl 1,000 mg 11/01/22 08:35 11/02/22 09:00 Metformin Hcl Xr 500 Mg Tab.Sr.24h PO 1,000 mg DAILY@0800 [facility] Administration Miconazole Nitra
[2022-11-02 11:48] LABS: Glucose Point of Care 98 mg/dl (65-105)
--- NOTE | 2022-11-02 12:00 | P.PNNP_ITS ---
Progress Note: A&P Assessment and Plan (1) Proteinuria: Qualifiers: Proteinuria type: unspecified Qualified Code(s): R80.9 - Proteinuria, unspecified Code(s): R80.9 - Proteinuria, unspecified Status: Acute Assessment and Plan: * as suggested by history and noted random urine testing * noted to > 15 grams of proteinuria (!) * however, given #2, will recheck this in a few days to verify * if still persistent, will proceed with further serological testing (2) Hydroureteronephrosis: Code(s): N13.30 - Unspecified hydronephrosis Status: Acute Assessment and Plan: * as noted by admission CT scan * adhikari catheter in place * post-obstructive diuresis noted * follow I/Os * Urology following (3) Elevated serum creatinine: Code(s): R79.89 - Other specified abnormal findings of blood chemistry Status: Acute Assessment and Plan: * resolved * apparently acute and likely secondary to #2 * follow repeat labs (4) Anasarca: Code(s): R60.1 - Generalized edema Status: Acute Assessment and Plan: * due to obstruction versus proteinuria/nephrotic syndrome versus combination of both * swelling/edema improving with current interventions * could use diuretics but would follow I/Os given post-obstructive diuresis (5) HTN (hypertension): Code(s): I10 - Essential (primary) hypertension Status: Chronic Assessment and Plan: * reasonable control for now * follow trend with ongoing post obstructive diuresis (6) Type 2 diabetes mellitus with hyperglycemia, with long-term current use of insulin: Code(s): E11.65 - Type 2 diabetes mellitus with hyperglycemia; Z79.4 - longterm (current) use of insulin Status: Chronic Assessment and Plan: * follow accuchecks * glycemic control Will continue to follow. Subjective Date/time seen: 11/02/22 12:00 Appears to be doing much better; some issues with hematuria in the last 24 hours but continues to make excellent urine output following adhikari catheter placement; swelling in lower extremities has significantly improved as well; no apparent distress voiced at this time. Exam Narrative: General: WD/WN male in NAD Heart: normal S1 and S2; no rub Lungs: clear anteriorly, decreased at bases Abdomen: soft, nontender, nondistended, positive bowel sounds Extremities: no cyanosis or clubbing; trace edema Skin: warm and dry Objective Data Vital Signs Vital Signs: Vital Signs Temp Pulse Resp BP Pulse Ox O2 Del Method 11/02/22 12:00 97.9 F 89 18 133/67 95 11/02/22 07:45 Room Air 11/02/22 05:16 98 F 89 18 166/80 H 90 11/01/22 20:00 Room Air 11/01/22 21:27 97.2 F L 78 18 150/70 H 94 Intake/Output Intake/Output: Intake & Output 10/30/22 10/31/22 11/01/22 11/02/22 23:59 23:59 23:59 23:59 Intake Total 2990 62260 Output Total [id number] [facility] -[id number] -[id number] Meds/Results Medications: Active Medications Generic Name Dose Route Start Last Admin Trade Name Freq PRN Reason Stop Dose Admin Aspirin 81 mg 11/01/22 09:00 11/02/22 09:04 Aspirin 81 Mg Enteric Tablet PO 8
--- NOTE | 2022-11-02 12:00 | PM.PNNEP ---
Progress Note: A&P Assessment and Plan (1) Proteinuria: Qualifiers: Proteinuria type: unspecified Qualified Code(s): R80.9 - Proteinuria, unspecified Code(s): R80.9 - Proteinuria, unspecified Status: Acute Assessment and Plan: as suggested by history and noted random urine testing noted to > 15 grams of proteinuria (!) however, given #2, will recheck this in a few days to verify if still persistent, will proceed with further serological testing (2) Hydroureteronephrosis: Code(s): N13.30 - Unspecified hydronephrosis Status: Acute Assessment and Plan: as noted by admission CT scan adhikari catheter in place post-obstructive diuresis noted follow I/Os Urology following (3) Elevated serum creatinine: Code(s): R79.89 - Other specified abnormal findings of blood chemistry Status: Acute Assessment and Plan: resolved apparently acute and likely secondary to #2 follow repeat labs (4) Anasarca: Code(s): R60.1 - Generalized edema Status: Acute Assessment and Plan: due to obstruction versus proteinuria/nephrotic syndrome versus combination of both swelling/edema improving with current interventions could use diuretics but would follow I/Os given post-obstructive diuresis (5) HTN (hypertension): Code(s): I10 - Essential (primary) hypertension Status: Chronic Assessment and Plan: reasonable control for now follow trend with ongoing post obstructive diuresis (6) Type 2 diabetes mellitus with hyperglycemia, with long-term current use of insulin: Code(s): E11.65 - Type 2 diabetes mellitus with hyperglycemia; 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 Subjective Date/time seen: 11/02/22 12:00 Appears to be doing much better; some issues with hematuria in the last 24 hours but continues to make excellent urine output following adhikari catheter placement; swelling in lower extremities has significantly improved as well; no apparent distress voiced at this time. Exam Narrative: General: WD/WN male in NAD Heart: normal S1 and S2; no rub Lungs: clear anteriorly, decreased at bases Abdomen: soft, nontender, nondistended, positive bowel sounds Extremities: no cyanosis or clubbing; trace edema Skin: warm and dry Objective Data Vital Signs Vital Signs: Vital Signs Temp Pulse Resp BP Pulse Ox O2 Del Method 11/02/22 12:00 97.9 F 89 18 133/67 95 11/02/22 07:45 Room Air 11/02/22 05:16 98 F 89 18 166/80 H 90 11/01/22 20:00 Room Air 11/01/22 21:27 97.2 F L 78 18 150/70 H 94 Intake/Output Intake/Output: Intake & Output 10/30/22 10/31/22 11/01/22 11/02/22 23:59 23:59 23:59 23:59 Intake Total 2990 14937 Output Total 67774 [id number] [facility] -[id number] -[id number] Meds/Results Medications: Active Medications Generic Name Dose Route Start Last Admin Trade Name Freq PRN Reason Stop Dose Admin Aspirin 81 mg 11/01/22 09:00 11/02/22 09:04 Aspirin 81 Mg Enteric Tablet PO 81 mg DAILY DAVIS Administration Carvedilol 3.125 mg 11/01/22 09:00 11/02/22 09:04 Carvedilol 3.125 Mg Tablet PO 3.125 mg DAILY DAVIS Administration Dextrose 12.5 gm 11/01/22 08:25 Dextrose 50% 25 Gm/50 Ml Syringe IV PUSH PRN PRN Hypoglycemia Protocol Empagliflozin 10 mg 11/01/22 09:00 11/02/22 09:04 Empagliflozin 10 Mg Tablet PO 10 mg DAILY DAVIS Administration Finasteride 5 mg 11/02/22 09:00 11/02/22 08:59 Finasteride 5 Mg Tablet PO 5 mg QAM DAVIS Administration Gabapentin 600 mg 11/01/22 09:00 11/02/22 16:50 Gabapentin 300 Mg Capsule PO 600 mg TID DAVIS Administration Glucagon 1 mg 11/01/22 08:25 Glucagon For Inj 1 Mg Vial IM PRN PRN Hypoglycemia Protocol Gluc
[2022-11-02 14:00] VITALS: BP 133/67; PULSE 89; RESP 18; TEMP 36.6; O2SAT 95
--- NOTE | 2022-11-02 15:29 | PM.IMPN ---
Progress Note: A&P Assessment and Plan (1) Acute bilateral obstructive uropathy: Code(s): N13.9 - Obstructive and reflux uropathy, unspecified Status: Acute Assessment and Plan: Patient presents with LE edema. CT reviewed and showing bladder wall thickening and fat stranding as well as severe bilateral hydrourteronephrosis with distended bladder. BPH noted. Suspect BPH with obstruction and possibly nephrotic syndrome and/or neurogenic bladder. No blood by UA but now having gross hematuria felt related to bladder decompression. CBI started. Urology following and appreciate their input. (2) Hydroureteronephrosis: Code(s): N13.30 - Unspecified hydronephrosis Status: Acute Assessment and Plan: Related to obstructive process or neurogenic bladder. As above. Continue Flomax and Proscar for BPH. Appreciate uology input. (3) Chronic kidney disease: Code(s): N18.9 - Chronic kidney disease, unspecified Status: Acute Assessment and Plan: Patient has history of CKD but his baseline numbers are unknown.? Suspect he has a component of acute kidney injury on chronic kidney disease related to the obstructive symptoms.? Given the nature of his edema/anasarca and that he has 3+ proteinuria, the patient may have nephrotic syndrome.?Cr better today with decompression of the bladder. Some urine studies noted. Nephrology has been consulted. Check Echo. (4) Proteinuria: Qualifiers: Proteinuria type: unspecified Qualified Code(s): R80.9 - Proteinuria, unspecified Code(s): R80.9 - Proteinuria, unspecified Status: Acute Assessment and Plan: As above. (5) Type 2 diabetes mellitus with hyperglycemia, with long-term current use of insulin: Code(s): E11.65 - Type 2 diabetes mellitus with hyperglycemia; Z79.4 - [facility] (current) use of insulin Status: Acute Assessment and Plan: The patient's blood glucose was reviewed on 11/02 Glucose remains well controlled and 63 this morning. Continue AccuCheks covering with sliding scale. Hypoglycemia protocol available as needed. Decrease lantus dosing. (6) Tobacco use disorder, continuous: Code(s): F17.209 - Nicotine dependence, unspecified, with unspecified nicotine-induced disorders Status: Acute Assessment and Plan: Tobacco cessation was encouraged. Subjective Date/time seen: 11/02/22 15:29 Interval history: 67yo male with DM, HTN and CKD here for lower extremity edema. Slept well. Eating okay. No nausea or vomiting. No abdominal pain. No chest pain. Does complain of back pain. Exam Narrative: Gen - NARD Chest - Inspiratory and expiratory diffuse rhonchi. Normal respiratory rate CV - RRR S1/S2 with a 2/6 murmur heard loudest in the right upper sternal border without radiation to the carotids. Abd - Soft, NT/ND, Positive BS - dark red urine in tubing and Riggs bag. Ext - trace pedal edema Psych - Nml mood and affect Skin - Warm and dry Objective Data Vital Signs Vital Signs: Vital Signs - 24 hr 11/01/22 21:27 11/01/22 20:00 11/02/22 05:16 Temperature 97.2 F L 98 F Pulse Rate 78 89 Respiratory Rate 18 18 Blood Pressure 150/70 H 166/80 H Pulse Oximetry 94 90 Oxygen Delivery Room Air 11/02/22 07:45 11/02/22 14:00 Temperature 97.9 F Pulse Rate 89 Respiratory Rate 18 Blood Pressure 133/67 Pulse Oximetry 95 Oxygen Delivery Room Air Intake/Output Intake/Output: Intake & Output 10/30/22 10/31/22 11/01/22 11/02/22 23:59 23:59 23:59 23:59 Intake Total 2990 38712 Output Total 93293 41451 Balance -[id number] -[id number] Meds/Results Medications: Active Medications Generic Name Dose Route Start Last Admin Trade Name Freq PRN Reason Stop Dose Admin Aspirin 81 mg 11/01/22 09:00 11/02/22 09:04 Aspirin 81 Mg Enteric Tablet PO 81 mg DAILY DAVIS Administration Carvedilol 3.125 mg 11/01/22 0
[2022-11-02 16:51] LABS: Glucose Point of Care 164 mg/dl (65-105)
[2022-11-02 20:00] VITALS: O2SAT 92
[2022-11-02] MEDS: INSULIN GLARGINE (*BKC) 100 UNITS/ML 45 UNITS SUB-Q (20:45)
[2022-11-02 21:02] LABS: Glucose Point of Care 217 mg/dl (65-105)
[2022-11-02 21:39] VITALS: BP 165/70; PULSE 102; RESP 20; TEMP 36.8; O2SAT 92
[2022-11-02] MEDS: PRAVASTATIN SODIUM 20 MG TABLET 40 MG PO (22:36)
[2022-11-02] MEDS: PANTOPRAZOLE 40 MG TABLET PO (22:36)
[2022-11-03 06:00] VITALS: BP 143/70; PULSE 72; RESP 16; TEMP 36.8; O2SAT 92
[2022-11-03 06:37] LABS: Basophils Absolute Auto 0.1 K/mm3 (0.0-0.1); Basophils Percent Auto 0.6 % (0.2-1.2); Eosinophils Absolute Auto 0.3 K/mm3 (0-0.3); Eosinophils Percent Auto 2.7 % (0-4.4); Hematocrit 38.4 % (42.0-52.0); Hemoglobin 13.4 g/dL (14.0-18.0); Immature Granulocyte Absolute 0.04 K/mm3 (0.00-0.031); Immature Granulocyte Percent A 0.4 % (0-0.5); Lymphocytes Absolute Auto 2.17 K/mm3 (0.9-3.2); Lymphocytes Percent Auto 22.6 % (18.3-44.2); Mean Corpuscular HGB Conc 34.9 g/dl (32-36); Mean Corpuscular Hemoglobin 32.2 pg (26-34); Mean Corpuscular Volume 92.3 fl (80-100); Mean Platelet Volume 10.4 fl (7.4-10.4); Monocytes Absolute Auto 0.8 K/mm3 (0.1-0.6); Monocytes Percent Auto 8.4 % (2.6-8.5); Neutrophils Absolute Auto 6.3 K/mm3 (1.3-6.7); Neutrophils Percent Auto 65.3 % (45.5-73.1); Platelet Count Result 214 k/mm3 (150-375); Red Blood Count 4.16 M/mm3 (4.6-6.20); Red Cell Distribution Width 12.5 % (11.5-14.5); White Blood Count 9.6 K/mm3 (4.5-10.0)
[2022-11-03 06:45] LABS: Anion Gap 0 mmol/L (8-16); Blood Urea Nitrogen 15 mg/dL (9-20); Calcium 8.1 mg/dL (8.4-10.2); Carbon Dioxide 33 mmol/L (22-30); Chloride 103 mmol/L (98-107); Estimated CRCL calculation 70 ml/min; Estimated Glomerular Filt Rate > 60; Glucose 67 mg/dL (65-110); Magnesium 1.6 mg/dL (1.6-2.3); Phosphorus 2.9 mg/dL (2.5-4.5); Potassium 3.2 mmol/L (3.4-5.0); Sodium 136 mmol/L (137-145)
[2022-11-03 07:56] LABS: Glucose Point of Care 64 mg/dl (65-105)
[2022-11-03 08:28] LABS: Glucose Point of Care 95 mg/dl (65-105)
[2022-11-03] MEDS: TAMSULOSIN HCL 0.4 MG CAPSULE PO (09:07)
[2022-11-03] MEDS: lisinopriL 20 MG TABLET 40 MG PO (09:07)
[2022-11-03] MEDS: MAGNESIUM SULF 2 GM/WATER 50ML 2 GM/50 ML BAG IVPB (09:07)
[2022-11-03 09:08] VITALS: PULSE 70
[2022-11-03] MEDS: metFORMIN HCL XR 500 MG TAB.SR.24H 1000 MG PO (09:08)
[2022-11-03] MEDS: carvediloL 3.125 MG TABLET PO (09:08)
[2022-11-03] MEDS: CHOLECALCIFEROL 1,000 UNITS TABLET 2000 UNITS PO (09:08)
[2022-11-03] MEDS: GABAPENTIN 300 MG CAPSULE 600 MG PO ×3 (09:08→16:25)
[2022-11-03] MEDS: ASPIRIN 81 MG ENTERIC TABLET PO (09:08)
[2022-11-03] MEDS: FINASTERIDE 5 MG TABLET PO (09:09)
[2022-11-03] MEDS: POTASSIUM CHLORIDE 20 MEQ TABLET 40 MEQ PO (09:09)
[2022-11-03] MEDS: MICONAZOLE NITRATE 2% CREAM 30 GM TUBE 1 APPLIC TOPICAL ×2 (09:09→20:30)
[2022-11-03] MEDS: EMPAGLIFLOZIN 10 MG TABLET PO (09:09)
--- NOTE | 2022-11-03 09:52 | WPDUROPN2 ---
Progress Note: A&P Assessment and Plan (1) Urinary retention due to benign prostatic hyperplasia: Code(s): N40.1 - Benign prostatic hyperplasia with lower urinary tract symptoms; R33.8 - Other retention of urine Status: Acute Assessment and Plan: Home with catheter, on both Finasteride and Tamsulosin. F/U 5-7 days for outpatient voiding trial. Subjective Subjective Date/Time Seen: 11/03/22 09:52 Comfortable, anxious (begging) for discharge Review of Systems Cardiovascular: Cardiovascular: Denies chest pain, Denies lightheadedness, Denies palpitations and Denies dyspnea Respiratory: Respiratory: Denies dyspnea Gastrointestinal: Gastrointestinal: Denies diarrhea, Denies nausea and Denies vomiting Genitourinary: Genitourinary: Denies hematuria and Denies dysuria Endocrine: Endocrine: Denies palpitations Exam Const: General: no acute distress Resp: Effort & Inspection: normal respiratory effort GI: Inspection: non-distended GI Palp: No abdominal tenderness and No Guarding due to palpation present (GI) Auscultation: normal bowel sounds Objective Data Vital Signs Vital Signs: Vital Signs - 24 hr 11/02/22 14:00 11/02/22 21:39 11/02/22 20:00 Temperature 97.9 F 98.3 F Pulse Rate 89 102 H Respiratory Rate 18 20 Blood Pressure 133/67 165/70 H Pulse Oximetry 95 92 92 Oxygen Delivery Room Air 11/03/22 06:00 11/03/22 09:08 Temperature 98.2 F Pulse Rate 72 70 Respiratory Rate 16 Blood Pressure 143/70 H Pulse Oximetry 92 Oxygen Delivery Intake/Output Intake/Output: Intake & Output 10/31/22 11/01/22 11/02/22 11/03/22 23:59 23:59 23:59 23:59 Intake Total 2990 61227 486 Output Total 52937 [id number] 2300 [facility]3536 [phone] Meds/Results Medications: Active Medications Generic Name Dose Route Start Last Admin Trade Name Freq PRN Reason Stop Dose Admin Aspirin 81 mg 11/01/22 09:00 11/03/22 09:08 Aspirin 81 Mg Enteric Tablet PO 81 mg DAILY DAVIS Administration Carvedilol 3.125 mg 11/01/22 09:00 11/03/22 09:08 Carvedilol 3.125 Mg Tablet PO 3.125 mg DAILY DAVIS Administration Dextrose 12.5 gm 11/01/22 08:25 Dextrose 50% 25 Gm/50 Ml Syringe IV PUSH PRN PRN Hypoglycemia Protocol Empagliflozin 10 mg 11/01/22 09:00 11/03/22 09:09 Empagliflozin 10 Mg Tablet PO 10 mg DAILY DAVIS Administration Finasteride 5 mg 11/02/22 09:00 11/03/22 09:09 Finasteride 5 Mg Tablet PO 5 mg QAM DAVIS Administration Gabapentin 600 mg 11/01/22 09:00 11/03/22 09:08 Gabapentin 300 Mg Capsule PO 600 mg TID DAVIS Administration Glucagon 1 mg 11/01/22 08:25 Glucagon For Inj 1 Mg Vial IM PRN PRN Hypoglycemia Protocol Glucose 15 gm 11/01/22 08:25 Glucose Oral Gel 15 Gm Of Glucse In 37.5 Gm Tube PO PRN PRN Hypoglycemia Protocol Dextrose 1,000 mls @ 100 mls/hr 11/01/22 08:25 Dextrose 5% 1,000 Ml IVPB PRN PRN Hypoglycemia Protocol Insulin Aspart 2 - 5 units 11/01/22 08:00 11/03/22 09:09 Insulin Aspart (*Bkc) 100 Units/Ml SUB-Q Not Given TIDWM DAVIS Protocol Insulin Glargine 45 units 11/02/22 21:00 11/02/22 20:45 Insulin Glargine (*Bkc) 100 Units/Ml SUB-Q 45 units HS DAVIS Administration Lisinopril 40 mg 11/01/22 09:00 11/03/22 09:07 Lisinopril 20 Mg Tablet PO 40 mg DAILY DAVIS Administration Metformin HCl 1,000 mg 11/01/22 08:35 11/03/22 09:08 Metformin Hcl Xr 500 Mg Tab.Sr.24h PO 1,000 mg DAILY@0800 DAVIS Administration Miconazole Nitrate 1 applic 11/01/22 21:00 11/03/22 09:09 Miconazole Nitrate 2% Cream 30 Gm Tube TOPICAL 1 applic Q12HR DAVIS Administration Pantoprazole Sodium 40 mg 11/01/22 21:00 11/02/22 22:36 Pantoprazole 40 Mg Tablet PO 40 mg HS DAVIS Administration Perflutren Lipid Microsphere 0 ml 11/02/22 15:37 Perflutren Lipid Microspheres 1.5 Ml Vial Diluted To 10 Ml Tota
--- NOTE | 2022-11-03 11:17 | PM.PNNEP ---
Progress Note: A&P Assessment and Plan (1) Proteinuria: Qualifiers: Proteinuria type: unspecified Qualified Code(s): R80.9 - Proteinuria, unspecified Code(s): R80.9 - Proteinuria, unspecified Status: Acute Assessment and Plan: as suggested by history and noted random urine testing noted to > 15 grams of proteinuria (!) however, given #2, will recheck this to verify if still present, will proceed with further serological testing (2) Hydroureteronephrosis: Code(s): N13.30 - Unspecified hydronephrosis Status: Acute Assessment and Plan: as noted by admission CT scan adhikari catheter in place post-obstructive diuresis noted follow I/Os Urology following (3) Elevated serum creatinine: Code(s): R79.89 - Other specified abnormal findings of blood chemistry Status: Acute Assessment and Plan: resolved apparently acute and likely secondary to #2 follow repeat labs (4) Anasarca: Code(s): R60.1 - Generalized edema Status: Acute Assessment and Plan: due to obstruction versus proteinuria/nephrotic syndrome versus combination of both swelling/edema improving with current interventions could use diuretics but would follow I/Os given post-obstructive diuresis (5) HTN (hypertension): Code(s): I10 - Essential (primary) hypertension Status: Chronic Assessment and Plan: reasonable control for now follow trend with ongoing post obstructive diuresis (6) Type 2 diabetes mellitus with hyperglycemia, with long-term current use of insulin: Code(s): E11.65 - Type 2 diabetes mellitus with hyperglycemia; 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 Subjective Date/time seen: 11/03/22 11:17 Edema/swelling continues to improve with noted post-obstructive diuresis; asking me about the possibility of going home/discharge; he otherwise feels reasonably well; no other issues/events overnight or earlier this morning. Exam Narrative: General: WD/WN male in NAD Heart: normal S1 and S2; no rub Lungs: clear anteriorly, decreased at bases Abdomen: soft, nontender, nondistended, positive bowel sounds Extremities: no cyanosis or clubbing; trace edema Skin: warm and intact Objective Data Vital Signs Vital Signs: Vital Signs Temp Pulse Resp BP Pulse Ox O2 Del Method 11/03/22 09:00 Room Air 11/03/22 09:08 70 11/03/22 06:00 98.2 F 72 16 143/70 H 92 11/02/22 20:00 92 Room Air 11/02/22 21:39 98.3 F 102 H 20 165/70 H 92 Intake/Output Intake/Output: Intake & Output 10/31/22 11/01/22 11/02/22 11/03/22 23:59 23:59 23:59 23:59 Intake Total 2990 50791 536 Output Total 71182 78141 3945 [facility]7736 [phone] Meds/Results Medications: Active Medications Generic Name Dose Route Start Last Admin Trade Name Freq PRN Reason Stop Dose Admin Aspirin 81 mg 11/01/22 09:00 11/03/22 09:08 Aspirin 81 Mg Enteric Tablet PO 81 mg DAILY DAVIS Administration Carvedilol 3.125 mg 11/01/22 09:00 11/03/22 09:08 Carvedilol 3.125 Mg Tablet PO 3.125 mg DAILY DAVIS Administration Dextrose 12.5 gm 11/01/22 08:25 Dextrose 50% 25 Gm/50 Ml Syringe IV PUSH PRN PRN Hypoglycemia Protocol Empagliflozin 10 mg 11/01/22 09:00 11/03/22 09:09 Empagliflozin 10 Mg Tablet PO 10 mg DAILY DAVIS Administration Finasteride 5 mg 11/02/22 09:00 11/03/22 09:09 Finasteride 5 Mg Tablet PO 5 mg QAM DAVIS Administration Gabapentin 600 mg 11/01/22 09:00 11/03/22 12:25 Gabapentin 300 Mg Capsule PO 600 mg TID DAVIS Administration Glucagon 1 mg 11/01/22 08:25 Glucagon For Inj 1 Mg Vial IM PRN PRN Hypoglycemia Protocol Glucose 15 gm 11/01/22 08:25 Glucose Oral Gel 15 Gm Of Glucse
--- NOTE | 2022-11-03 11:17 | P.PNNP_ITS ---
Progress Note: A&P Assessment and Plan (1) Proteinuria: Qualifiers: Proteinuria type: unspecified Qualified Code(s): R80.9 - Proteinuria, unspecified Code(s): R80.9 - Proteinuria, unspecified Status: Acute Assessment and Plan: * as suggested by history and noted random urine testing * noted to > 15 grams of proteinuria (!) * however, given #2, will recheck this to verify * if still present, will proceed with further serological testing (2) Hydroureteronephrosis: Code(s): N13.30 - Unspecified hydronephrosis Status: Acute Assessment and Plan: * as noted by admission CT scan * adhikari catheter in place * post-obstructive diuresis noted * follow I/Os * Urology following (3) Elevated serum creatinine: Code(s): R79.89 - Other specified abnormal findings of blood chemistry Status: Acute Assessment and Plan: * resolved * apparently acute and likely secondary to #2 * follow repeat labs (4) Anasarca: Code(s): R60.1 - Generalized edema Status: Acute Assessment and Plan: * due to obstruction versus proteinuria/nephrotic syndrome versus combination of both * swelling/edema improving with current interventions * could use diuretics but would follow I/Os given post-obstructive diuresis (5) HTN (hypertension): Code(s): I10 - Essential (primary) hypertension Status: Chronic Assessment and Plan: * reasonable control for now * follow trend with ongoing post obstructive diuresis (6) Type 2 diabetes mellitus with hyperglycemia, with long-term current use of insulin: Code(s): E11.65 - Type 2 diabetes mellitus with hyperglycemia; Z79.4 - residential (current) use of insulin Status: Chronic Assessment and Plan: * follow accuchecks * glycemic control Will continue to follow. Subjective Date/time seen: 11/03/22 11:17 Edema/swelling continues to improve with noted post-obstructive diuresis; asking me about the possibility of going home/discharge; he otherwise feels reasonably well; no other issues/events overnight or earlier this morning. Exam Narrative: General: WD/WN male in NAD Heart: normal S1 and S2; no rub Lungs: clear anteriorly, decreased at bases Abdomen: soft, nontender, nondistended, positive bowel sounds Extremities: no cyanosis or clubbing; trace edema Skin: warm and intact Objective Data Vital Signs Vital Signs: Vital Signs Temp Pulse Resp BP Pulse Ox O2 Del Method 11/03/22 09:00 Room Air 11/03/22 09:08 70 11/03/22 06:00 98.2 F 72 16 143/70 H 92 11/02/22 20:00 92 Room Air 11/02/22 21:39 98.3 F 102 H 20 165/70 H 92 Intake/Output Intake/Output: Intake & Output 10/31/22 11/01/22 11/02/22 11/03/22 23:59 23:59 23:59 23:59 Intake Total 2990 62226 536 Output Total 11957 00147 4975 [facility]9081 -[phone] Meds/Results Medications: Active Medications Generic Name Dose Route Start Last Admin Trade Name Guilleq PRN Reason Stop Dose Admin Aspirin 81 mg 11/01/22 09:00 11/03/22 09:08 Aspirin 81 Mg Enteric Tablet PO 81 mg DAILY DAVIS Administration Carvedi
[2022-11-03 11:41] LABS: Glucose Point of Care 118 mg/dl (65-105)
[2022-11-03 14:00] VITALS: BP 141/56; PULSE 81; RESP 20; TEMP 36.4; O2SAT 97
--- NOTE | 2022-11-03 14:57 | PM.IMPN ---
Progress Note: A&P Assessment and Plan (1) Acute bilateral obstructive uropathy: Code(s): N13.9 - Obstructive and reflux uropathy, unspecified Status: Acute Assessment and Plan: Patient presents with LE edema. CT reviewed and showing bladder wall thickening and fat stranding as well as severe bilateral hydrourteronephrosis with distended bladder. BPH noted. Suspect BPH with obstruction and possibly nephrotic syndrome and/or neurogenic bladder. No blood by UA but now having gross hematuria felt related to bladder decompression. CBI started. Urology following and appreciate their input. Contineu CBI to clear urine (2) Gross hematuria: Code(s): R31.0 - Gross hematuria Status: Acute Assessment and Plan: As above. Continue CBI (3) Hydroureteronephrosis: Code(s): N13.30 - Unspecified hydronephrosis Status: Acute Assessment and Plan: Related to obstructive process or neurogenic bladder. As above. Continue Flomax and Proscar for BPH. Appreciate urology input. (4) Chronic kidney disease: Code(s): N18.9 - Chronic kidney disease, unspecified Status: Acute Assessment and Plan: Patient has history of CKD but his baseline numbers are unknown.?[place] he has GRUPO on CKD related to the obstructive symptoms.? Given the nature of his edema/anasarca and that he has 3+ proteinuria, the patient may have nephrotic syndrome.?Prot/Cr ratio>15 (>7.5gm on repeat) but possibly related to obstructive process. Cr better today with decompression of the bladder. Nephrology following and appreciate their input. Complement normal. Serologies pending. Echo pending (5) Annabelle albicans infection: Code(s): B37.9 - Candidiasis, unspecified Status: Acute Assessment and Plan: Noted. Antifungal treatment started. (6) Proteinuria: Qualifiers: Proteinuria type: unspecified Qualified Code(s): R80.9 - Proteinuria, unspecified Code(s): R80.9 - Proteinuria, unspecified Status: Acute Assessment and Plan: As above. Related to obstructive process and/or underlying nephrotic syndrome from his DM. (7) Type 2 diabetes mellitus with hyperglycemia, with long-term current use of insulin: Code(s): E11.65 - Type 2 diabetes mellitus with hyperglycemia; Z79.4 - [facility] (current) use of insulin Status: Chronic Assessment and Plan: The patient's blood glucose was reviewed on 11/03 Glucose remains well controlled and 67 this morning. Continue AccuCheks covering with sliding scale. Hypoglycemia protocol available as needed. Decrease lantus dosing again. (8) Tobacco use disorder, continuous: Code(s): F17.209 - Nicotine dependence, unspecified, with unspecified nicotine-induced disorders Status: Acute Assessment and Plan: Tobacco cessation was encouraged. Subjective Date/time seen: 11/03/22 14:57 Interval history: 67yo male with DM, HTN and CKD here for lower extremity edema. No n/v. No CP. No SOB. Requesting discharge Exam Narrative: AF 97.6 141/56 81 20 97% ra Gen - NARD Chest - Inspiratory and expiratory diffuse rhonchi. Normal respiratory rate CV - RRR S1/S2 Abd - Soft, NT/ND, Positive BS - pink-red urine in tubing and Riggs bag with CBI running. Ext - trace pedal edema Psych - Nml mood and affect Skin - Warm and dry Objective Data Vital Signs Vital Signs: Vital Signs - 24 hr 11/02/22 21:39 11/02/22 20:00 11/03/22 06:00 Temperature 98.3 F 98.2 F Pulse Rate 102 H 72 Respiratory Rate 20 16 Blood Pressure 165/70 H 143/70 H Pulse Oximetry 92 92 92 Oxygen Delivery Room Air 11/03/22 09:08 11/03/22 09:00 11/03/22 14:00 Temperature 97.6 F Pulse Rate 70 81 Respiratory Rate 20 Blood Pressure 141/56 H Pulse Oximetry 97 Oxygen Delivery Room Air Intake/Output Intake/Output: Intake & Output 10/31/22 11/01/22 11/02/22 11/03/22 2
[2022-11-03 16:43] LABS: Glucose Point of Care 76 mg/dl (65-105)
[2022-11-03 17:01] LABS: Creatinine Urine 66.8 mg/dL
[2022-11-03 17:37] LABS: Total Protein Urine Random > 500 mg/dL
[2022-11-03] MEDS: PANTOPRAZOLE 40 MG TABLET PO (20:30)
[2022-11-03] MEDS: PRAVASTATIN SODIUM 20 MG TABLET 40 MG PO (20:30)
[2022-11-03] MEDS: INSULIN GLARGINE (*BKC) 100 UNITS/ML 30 UNITS SUB-Q (20:34)
[2022-11-03 21:07] VITALS: BP 142/68; PULSE 94; RESP 18; TEMP 36.6; O2SAT 92
[2022-11-03 21:41] LABS: Glucose Point of Care 174 mg/dl (65-105)
--- NOTE | 2022-11-04 | ECHO_ITS ---
Patient Info Name: Maikel Campos Age: 67 years : 1955 Gender: Male Ht: 69 in Wt: 208 lbs BSA: 2.17 m2 HR: 75 bpm BP: 137 / 60 mmHg Technical Quality: Fair Exam Date: 11/04/2022 1:57 PM Exam Location: [facility] Pulmonary Exam Room: [facility] Patient Status: Inpatient Admit Date: 11/01/2022 Staff Ordering Physician: Jose Osborn MD Drop Shipment Clerk: Zenobia Preciado RDCS Attending Provider: Shalonda Del Valle DO Exam Type: CA echo doppler color flow Study Info Indications - EDEMA Complete two-dimensional, color flow and Doppler transthoracic echocardiogram is performed. Summary 1. Complete two-dimensional, color flow and Doppler transthoracic echocardiogram is performed. 2. Left ventricular chamber dimension is normal. 3. Left ventricular systolic function is normal, estimated at 65-70%. 4. There is mildly increased left ventricular wall thickness. 5. The left ventricular diastolic function is grade I diastolic dysfunction. 6. E/e' 8 is minimally elevated. 7. There is moderate aortic valve sclerosis. 8. There is mild aortic valve stenosis with a peak velocity of 209 cm/s, mean gradient of 9 mmHg, and aortic valve area of 1.8 cm2. 9. No pulmonary hypertension, estimated pulmonary arterial systolic pressure is 32 mmHg. 10. There is trace pulmonic regurgitation. Left Ventricle E/e' 8 is minimally elevated. Left ventricular chamber dimension is normal. Left ventricular systolic function is normal, estimated at 65-70%. There is mildly increased left ventricular wall thickness. The left ventricular diastolic function is grade I diastolic dysfunction. Right Ventricle Right ventricular chamber dimension is normal. Right ventricular systolic function is normal. Left Atria Left atrial chamber dimension is normal. Right Atria Right atrial chamber dimension is normal. Aortic Valve The aortic valve is trileaflet. There is moderate aortic valve sclerosis. There is mild aortic valve stenosis with a peak velocity of 209 cm/s, mean gradient of 9 mmHg, and aortic valve area of 1.8 cm2. There is no aortic valve regurgitation. Pulmonic Valve There is trace pulmonic regurgitation. Mitral Valve There is no mitral valve stenosis. There is no mitral valve regurgitation. Tricuspid Valve There is no tricuspid valve regurgitation. No pulmonary hypertension, estimated pulmonary arterial systolic pressure is 32 mmHg. Pericardium/Pleural There is no pericardial effusion. Inferior Vena Cava Normal inferior vena cava with >50% collapse upon inspiration consistent with normal right atrial pressure, 5 mmHg. Aorta The aortic root size at the sinus of Valsalva is normal. Left Ventricular Outflow Tract Name Value Normal LVOT 2D LVOT Diameter 2.0 cm LVOT Doppler LVOT Peak Gradient 4 mmHg LVOT Mean Gradient 2 mmHg LVOT VTI 20 cm LVOT VTI/AV VTI Ratio 0.6 LVOT Stroke Volume 63 ml LVOT CO 14.2 l/min LVOT
[2022-11-04 06:00] VITALS: BP 137/60; PULSE 71; RESP 16; TEMP 36.6; O2SAT 95
[2022-11-04 08:07] VITALS: PULSE 78
[2022-11-04] MEDS: carvediloL 3.125 MG TABLET PO (08:07)
[2022-11-04] MEDS: ASPIRIN 81 MG ENTERIC TABLET PO (08:07)
[2022-11-04] MEDS: metFORMIN HCL XR 500 MG TAB.SR.24H 1000 MG PO (08:07)
[2022-11-04 08:08] LABS: Basophils Absolute Auto 0.1 K/mm3 (0.0-0.1); Basophils Percent Auto 0.6 % (0.2-1.2); Eosinophils Absolute Auto 0.3 K/mm3 (0-0.3); Eosinophils Percent Auto 3.8 % (0-4.4); Hematocrit 39.7 % (42.0-52.0); Hemoglobin 13.5 g/dL (14.0-18.0); Immature Granulocyte Absolute 0.04 K/mm3 (0.00-0.031); Immature Granulocyte Percent A 0.4 % (0-0.5); Lymphocytes Absolute Auto 2.07 K/mm3 (0.9-3.2); Lymphocytes Percent Auto 23.1 % (18.3-44.2); Mean Corpuscular Hemoglobin 31.9 pg (26-34); Mean Corpuscular Volume 93.9 fl (80-100); Mean Platelet Volume 10.2 fl (7.4-10.4); Monocytes Absolute Auto 0.8 K/mm3 (0.1-0.6); Monocytes Percent Auto 8.8 % (2.6-8.5); Neutrophils Absolute Auto 5.7 K/mm3 (1.3-6.7); Neutrophils Percent Auto 63.3 % (45.5-73.1); Platelet Count Result 251 k/mm3 (150-375); Red Blood Count 4.23 M/mm3 (4.6-6.20); Red Cell Distribution Width 12.7 % (11.5-14.5)
[2022-11-04] MEDS: MICONAZOLE NITRATE 2% CREAM 30 GM TUBE 1 APPLIC TOPICAL (08:08)
[2022-11-04] MEDS: TAMSULOSIN HCL 0.4 MG CAPSULE PO (08:08)
[2022-11-04] MEDS: GABAPENTIN 300 MG CAPSULE 600 MG PO ×3 (08:08→17:34)
[2022-11-04] MEDS: FINASTERIDE 5 MG TABLET PO (08:08)
[2022-11-04] MEDS: lisinopriL 20 MG TABLET 40 MG PO (08:08)
[2022-11-04] MEDS: EMPAGLIFLOZIN 10 MG TABLET PO (08:08)
[2022-11-04] MEDS: CHOLECALCIFEROL 1,000 UNITS TABLET 2000 UNITS PO (08:08)
[2022-11-04 08:22] LABS: Albumin Level 3.2 g/dL (3.5-5.1); Anion Gap 1 mmol/L (8-16); Blood Urea Nitrogen 14 mg/dL (9-20); Calcium 8.2 mg/dL (8.4-10.2); Carbon Dioxide 32 mmol/L (22-30); Chloride 105 mmol/L (98-107); Estimated CRCL calculation 64 ml/min; Estimated Glomerular Filt Rate > 60; Glucose 75 mg/dL (65-110); Magnesium 1.8 mg/dL (1.6-2.3); Phosphorus 3.1 mg/dL (2.5-4.5); Potassium 3.3 mmol/L (3.4-5.0); Sodium 138 mmol/L (137-145)
[2022-11-04 08:23] LABS: Glucose Point of Care 81 mg/dl (65-105)
--- NOTE | 2022-11-04 10:37 | P.PNNP_ITS ---
Progress Note: A&P Assessment and Plan (1) Proteinuria: Qualifiers: Proteinuria type: unspecified Qualified Code(s): R80.9 - Proteinuria, unspecified Code(s): R80.9 - Proteinuria, unspecified Status: Acute Assessment and Plan: * as suggested by history and noted random urine testing * noted to > 15 grams of proteinuria (!) on initial testing * repeat testing demonstrates > 7.49 grams * serological testing pending (although he does not need stay hospitalized for these results) * he still may need a renal biopsy for a definitive diagnosis * continue lisinopril for anti-proteinuric effects (2) Hydroureteronephrosis: Code(s): N13.30 - Unspecified hydronephrosis Status: Acute Assessment and Plan: * as noted by admission CT scan * adhikari catheter in place * post-obstructive diuresis noted * follow I/Os * Urology following (3) Elevated serum creatinine: Code(s): R79.89 - Other specified abnormal findings of blood chemistry Status: Acute Assessment and Plan: * resolved * apparently acute and likely secondary to #2 * follow repeat labs (4) Anasarca: Code(s): R60.1 - Generalized edema Status: Acute Assessment and Plan: * due to obstruction versus proteinuria/nephrotic syndrome versus combination of both * swelling/edema improving with current interventions * could use diuretics but would follow I/Os given post-obstructive diuresis (5) HTN (hypertension): Code(s): I10 - Essential (primary) hypertension Status: Chronic Assessment and Plan: * reasonable control for now * follow trend with ongoing post obstructive diuresis (6) Type 2 diabetes mellitus with hyperglycemia, with long-term current use of insulin: Code(s): E11.65 - Type 2 diabetes mellitus with hyperglycemia; Z79.4 - 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 Subjective Date/time seen: 11/04/22 10:37 Swelling/edema continue to improve following adhikari catheter placement; repeat testing still indicated nephrotic range proteinuria; renal function relatively stable with excellent urine output noted but still with hematuria requiring CBI. Exam Narrative: General: WD/WN male in NAD Heart: normal S1 and S2; no rub Lungs: clear anteriorly, decreased at bases Abdomen: soft, nontender, nondistended, positive bowel sounds Extremities: no cyanosis or clubbing; trace edema Skin: no rash Objective Data Vital Signs Vital Signs: Vital Signs Temp Pulse Resp BP Pulse Ox O2 Del Method 11/04/22 08:00 Room Air 11/04/22 08:07 78 11/04/22 06:00 97.8 F 71 16 137/60 95 11/03/22 21:07 98 F 94 18 142/68 H 92 11/03/22 14:00 97.6 F 81 20 141/56 H 97 Intake/Output Intake/Output: Intake & Output 11/01/22 11/02/22 11/03/22 11/04/22 23:59 23:59 23:59 23:59 Intake Total 2990 33547 7336 76865 Output Total 60919 78532 [id number] [facility] -[id number] -[phone] Meds/Results Medications: Active Medications Generic Name Dose Route Start Last Admin Trade Name Freq
--- NOTE | 2022-11-04 10:37 | PM.PNNEP ---
Progress Note: A&P Assessment and Plan (1) Proteinuria: Qualifiers: Proteinuria type: unspecified Qualified Code(s): R80.9 - Proteinuria, unspecified Code(s): R80.9 - Proteinuria, unspecified Status: Acute Assessment and Plan: as suggested by history and noted random urine testing noted to > 15 grams of proteinuria (!) on initial testing repeat testing demonstrates > 7.49 grams serological testing pending (although he does not need stay hospitalized for these results) he still may need a renal biopsy for a definitive diagnosis continue lisinopril for anti-proteinuric effects (2) Hydroureteronephrosis: Code(s): N13.30 - Unspecified hydronephrosis Status: Acute Assessment and Plan: as noted by admission CT scan adhikari catheter in place post-obstructive diuresis noted follow I/Os Urology following (3) Elevated serum creatinine: Code(s): R79.89 - Other specified abnormal findings of blood chemistry Status: Acute Assessment and Plan: resolved apparently acute and likely secondary to #2 follow repeat labs (4) Anasarca: Code(s): R60.1 - Generalized edema Status: Acute Assessment and Plan: due to obstruction versus proteinuria/nephrotic syndrome versus combination of both swelling/edema improving with current interventions could use diuretics but would follow I/Os given post-obstructive diuresis (5) HTN (hypertension): Code(s): I10 - Essential (primary) hypertension Status: Chronic Assessment and Plan: reasonable control for now follow trend with ongoing post obstructive diuresis (6) Type 2 diabetes mellitus with hyperglycemia, with long-term current use of insulin: Code(s): E11.65 - Type 2 diabetes mellitus with hyperglycemia; Z79.4 - senior living (current) use of insulin Status: Chronic Assessment and Plan: follow accuchecks glycemic control Will continue to follow. Subjective Date/time seen: 11/04/22 10:37 Swelling/edema continue to improve following adhikari catheter placement; repeat testing still indicated nephrotic range proteinuria; renal function relatively stable with excellent urine output noted but still with hematuria requiring CBI. Exam Narrative: General: WD/WN male in NAD Heart: normal S1 and S2; no rub Lungs: clear anteriorly, decreased at bases Abdomen: soft, nontender, nondistended, positive bowel sounds Extremities: no cyanosis or clubbing; trace edema Skin: no rash Objective Data Vital Signs Vital Signs: Vital Signs Temp Pulse Resp BP Pulse Ox O2 Del Method 11/04/22 08:00 Room Air 11/04/22 08:07 78 11/04/22 06:00 97.8 F 71 16 137/60 95 11/03/22 21:07 98 F 94 18 142/68 H 92 11/03/22 14:00 97.6 F 81 20 141/56 H 97 Intake/Output Intake/Output: Intake & Output 11/01/22 11/02/22 11/03/22 11/04/22 23:59 23:59 23:59 23:59 Intake Total 2990 10773 7336 35436 Output Total 89420 39123 [id number] [facility] -[id number] -[id number] -[phone] -160 Meds/Results Medications: Active Medications Generic Name Dose Route Start Last Admin Trade Name Freq PRN Reason Stop Dose Admin Aspirin 81 mg 11/01/22 09:00 11/04/22 08:07 Aspirin 81 Mg Enteric Tablet PO 81 mg DAILY DAVIS Administration Carvedilol 3.125 mg 11/01/22 09:00 11/04/22 08:07 Carvedilol 3.125 Mg Tablet PO 3.125 mg DAILY DAVIS Administration Dextrose 12.5 gm 11/01/22 08:25 Dextrose 50% 25 Gm/50 Ml Syringe IV PUSH PRN PRN Hypoglycemia Protocol Empagliflozin 10 mg 11/01/22 09:00 11/04/22 08:08 Empagliflozin 10 Mg Tablet PO 10 mg DAILY DAVIS Administration Finasteride 5 mg 11/02/22 09:00 11/04/22 08:08 Finasteride 5 Mg Tablet PO 5 mg QAM DAVIS Administration Gabapentin 600 mg 11/01/22 09:00 11/04/22 08:08 Gabapentin 300 Mg Capsule PO 600 mg TID DAVIS Administration
[2022-11-04 12:01] LABS: Glucose Point of Care 118 mg/dl (65-105)
--- NOTE | 2022-11-04 12:06 | PM.IMPN ---
Progress Note: A&P Assessment and Plan (1) Acute bilateral obstructive uropathy: Code(s): N13.9 - Obstructive and reflux uropathy, unspecified Status: Acute Assessment and Plan: Patient presents with LE edema. CT reviewed and showing bladder wall thickening and fat stranding as well as severe bilateral hydrourteronephrosis with distended bladder. BPH noted. Suspect BPH with obstruction and possibly nephrotic syndrome and/or neurogenic bladder. No blood by UA but now having gross hematuria felt related to bladder decompression. CBI started but not clearing. Plan for cystoscopy in the morning. Urology following and appreciate their input. (2) Gross hematuria: Code(s): R31.0 - Gross hematuria Status: Acute Assessment and Plan: As above. Continue CBI for now (3) Hydroureteronephrosis: Code(s): N13.30 - Unspecified hydronephrosis Status: Acute Assessment and Plan: Related to obstructive process or neurogenic bladder. As above. Continue Flomax and Proscar for BPH. Appreciate urology input. (4) Chronic kidney disease: Code(s): N18.9 - Chronic kidney disease, unspecified Status: Acute Assessment and Plan: Patient has history of CKD but his baseline numbers are unknown.?Bridgeton he has GRUPO on CKD related to the obstructive symptoms.? Given the nature of his edema/anasarca and that he has 3+ proteinuria, the patient may have nephrotic syndrome.?Prot/Cr ratio>15 (>7.5gm on repeat) but possibly related to obstructive process. Cr better with decompression of the bladder. Nephrology following and appreciate their input. Complement normal. Echo EF 65/70%, grade I diastolic dysfunction. SPEP result noted. UPEP pending. Immunofixation pending. (5) Annabelle albicans infection: Code(s): B37.9 - Candidiasis, unspecified Status: Acute Assessment and Plan: Improving. Antifungal treatment started. (6) Proteinuria: Qualifiers: Proteinuria type: unspecified Qualified Code(s): R80.9 - Proteinuria, unspecified Code(s): R80.9 - Proteinuria, unspecified Status: Acute Assessment and Plan: As above. Related to obstructive process and/or underlying nephrotic syndrome from his DM. Consider light chain disease (7) Type 2 diabetes mellitus with hyperglycemia, with long-term current use of insulin: Code(s): E11.65 - Type 2 diabetes mellitus with hyperglycemia; Z79.4 - [facility] (current) use of insulin Status: Chronic Assessment and Plan: The patient's blood glucose was reviewed on 11/04 Glucose remains well controlled Continue AccuCheks covering with sliding scale. Hypoglycemia protocol available as needed. Hold lantus since NPO after MN (8) Tobacco use disorder, continuous: Code(s): F17.209 - Nicotine dependence, unspecified, with unspecified nicotine-induced disorders Status: Acute Assessment and Plan: Tobacco cessation was encouraged. Subjective Date/time seen: 11/04/22 12:06 Interval history: 67yo male with DM, HTN and CKD here for lower extremity edema. No problems overnight. Normal bowel movements. No chest pain. No abdominal pain. No back pain. No shortness of breath. No nausea or vomiting. Exam Narrative: AF 137/60 78 16 95% ra Gen - NARD Chest -clear to auscultation. Normal respiratory rate. CV - RRR S1/S2 Abd - Soft, NT/ND, Positive BS - pink-red urine in tubing and Riggs bag with CBI running. Scrotal edema better. Ext - no pedal edema Psych - Nml mood and affect Skin - Warm and dry. fungal groin rash improved Objective Data Vital Signs Vital Signs: Vital Signs - 24 hr 11/03/22 14:00 11/03/22 21:07 11/04/22 06:00 Temperature 97.6 F 98 F 97.8 F Pulse Rate 81 94 71 Respiratory Rate 20 18 16 Blood Pressure 141/56 H 142/68 H 137/60 Pulse Oximetry 97 92 95 Oxygen Delivery 11/04/22 08:07 11/04/22 08:00 Tem[place]atur
[2022-11-04 13:44] VITALS: BP 122/73; PULSE 85; RESP 18; TEMP 36.4; O2SAT 95
--- NOTE | 2022-11-04 16:00 | WPDUROPN2 ---
Progress Note: A&P Assessment and Plan (1) Gross hematuria: Code(s): R31.0 - Gross hematuria Status: Acute Assessment and Plan: NO improvement off CBI, CBI restarted this afternoon. Obtain Consent: Plan for Cystoscopy with fulguration and possible clot evacuation tomorrow with Dr. Hernandez. Keep NPO after midnight. (2) Urinary retention due to benign prostatic hyperplasia: Code(s): N40.1 - Benign prostatic hyperplasia with lower urinary tract symptoms; R33.8 - Other retention of urine Status: Acute Subjective Subjective Date/Time Seen: 11/04/22 16:00 Patient with continued grossly bloody urine off CBI. NO pain or clots. Review of Systems Cardiovascular: Cardiovascular: Denies chest pain Gastrointestinal: Gastrointestinal: Denies abdominal pain Genitourinary: Genitourinary: Reports hematuria, Denies genital pain, Denies dysuria, Denies flank pain, Denies nocturia, Denies testicular pain, Denies urinary frequency, Denies urinary hesitancy, Denies urinary incontinence and Denies urinary urgency Exam Const: General: cooperative and comfortable Resp: Effort & Inspection: normal respiratory effort Cardio: Rate: regular rate GI: GI Palp: Yes Soft to palpation and No Tenderness to palpation present (GI) : General: No no CVA tenderness Urinary Catheter: Urinary Catheter: patent and draining and urine red Back/Spine/Pelvis: Back: CVA tenderness Extrem: Right lower extremity: no edema Left lower extremity: no edema Objective Data Vital Signs Vital Signs: Vital Signs - 24 hr 11/03/22 21:07 11/04/22 06:00 11/04/22 08:07 Temperature 98 F 97.8 F Pulse Rate 94 71 78 Respiratory Rate 18 16 Blood Pressure 142/68 H 137/60 Pulse Oximetry 92 95 Oxygen Delivery 11/04/22 08:00 11/04/22 13:44 Temperature 97.6 F Pulse Rate 85 Respiratory Rate 18 Blood Pressure 122/73 Pulse Oximetry 95 Oxygen Delivery Room Air Intake/Output Intake/Output: Intake & Output 11/01/22 11/02/22 11/03/22 11/04/22 23:59 23:59 23:59 23:59 Intake Total 2990 57307 7336 20472 Output Total 80806 20104 73086 [id number] [facility]6810 -[id number] [phone] 80 Meds/Results Medications: Active Medications Generic Name Dose Route Start Last Admin Trade Name Timo PRN Reason Stop Dose Admin Aspirin 81 mg 11/01/22 09:00 11/04/22 08:07 Aspirin 81 Mg Enteric Tablet PO 81 mg DAILY DAVIS Administration Carvedilol 3.125 mg 11/01/22 09:00 11/04/22 08:07 Carvedilol 3.125 Mg Tablet PO 3.125 mg DAILY DAVIS Administration Dextrose 12.5 gm 11/01/22 08:25 Dextrose 50% 25 Gm/50 Ml Syringe IV PUSH PRN PRN Hypoglycemia Protocol Empagliflozin 10 mg 11/01/22 09:00 11/04/22 08:08 Empagliflozin 10 Mg Tablet PO 10 mg DAILY DAVIS Administration Finasteride 5 mg 11/02/22 09:00 11/04/22 08:08 Finasteride 5 Mg Tablet PO 5 mg QAM DAVIS Administration Gabapentin 600 mg 11/01/22 09:00 11/04/22 12:17 Gabapentin 300 Mg Capsule PO 600 mg TID DAVIS Administration Glucagon 1 mg 11/01/22 08:25 Glucagon For Inj 1 Mg Vial IM PRN PRN Hypoglycemia Protocol Glucose 15 gm 11/01/22 08:25 Glucose Oral Gel 15 Gm Of Glucse In 37.5 Gm Tube PO PRN PRN Hypoglycemia Protocol Dextrose 1,000 mls @ 100 mls/hr 11/01/22 08:25 Dextrose 5% 1,000 Ml IVPB PRN PRN Hypoglycemia Protocol Insulin Aspart 2 - 5 units 11/01/22 08:00 11/04/22 12:16 Insulin Aspart (*Bkc) 100 Units/Ml SUB-Q Not Given [facility] Protocol Insulin Glargine 30 units 11/03/22 21:00 11/03/22 20:34 Insulin Glargine (*Bkc) 100 Units/Ml SUB-Q 30 units HS DAVIS Administration Lisinopril 40 mg 11/01/22 09:00 11/04/22 08:08 Lisinopril 20 Mg Tablet PO 40 mg DAILY DAVIS Administration Metformin HCl 1,000 mg 11/01/22 08:35 11/04/22 08:07 Metformin Hcl Xr 500 Mg Tab.Sr.24h PO 1,000 mg DAILY@0800 [facility] Adminis
[2022-11-04 17:02] LABS: Albumin 2.8 g/dL (3.8-4.8); Alpha 1 Globulin 0.4 g/dL (0.2-0.3); Alpha 2 Globulin 0.8 g/dL (0.5-0.9); Beta 1 Globulin 0.3 g/dL (0.4-0.6); Gamma Globulin 0.6 g/dL (0.8-1.7); Protein, Total 5.1 g/dL (6.1-8.1)
[2022-11-04 17:07] LABS: Glucose Point of Care 100 mg/dl (65-105)
[2022-11-04 21:02] LABS: Glucose Point of Care 195 mg/dl (65-105)
[2022-11-04] MEDS: PRAVASTATIN SODIUM 20 MG TABLET 40 MG PO (21:20)
[2022-11-04] MEDS: PANTOPRAZOLE 40 MG TABLET PO (21:20)
[2022-11-04 22:00] VITALS: BP 130/67; PULSE 92; RESP 17; TEMP 36.8; O2SAT 95
[2022-11-05] VITALS (8 sets, daily range): BP systolic 112–158; BP diastolic 67–94; PULSE 64–105; RESP 14–18; TEMP 36.3–36.9; O2SAT 95–100
[2022-11-05 07:58] LABS: Glucose Point of Care 154 mg/dl (65-105)
[2022-11-05 08:12] LABS: Hematocrit 40.8 % (42.0-52.0); Hemoglobin 14.1 g/dL (14.0-18.0); Mean Corpuscular HGB Conc 34.6 g/dl (32-36); Mean Corpuscular Hemoglobin 32.4 pg (26-34); Mean Corpuscular Volume 93.8 fl (80-100); Mean Platelet Volume 10.5 fl (7.4-10.4); Platelet Count Result 264 k/mm3 (150-375); Red Blood Count 4.35 M/mm3 (4.6-6.20); Red Cell Distribution Width 12.7 % (11.5-14.5); White Blood Count 8.4 K/mm3 (4.5-10.0)
[2022-11-05 08:20] LABS: Anion Gap 3 mmol/L (8-16); Blood Urea Nitrogen 16 mg/dL (9-20); Calcium 8.3 mg/dL (8.4-10.2); Carbon Dioxide 30 mmol/L (22-30); Chloride 107 mmol/L (98-107); Estimated CRCL calculation 64 ml/min; Estimated Glomerular Filt Rate > 60; Glucose 150 mg/dL (65-110); Magnesium 1.8 mg/dL (1.6-2.3); Sodium 140 mmol/L (137-145)
[2022-11-05] MEDS: MICONAZOLE NITRATE 2% CREAM 30 GM TUBE 1 APPLIC TOPICAL (10:15)
[2022-11-05] MEDS: carvediloL 3.125 MG TABLET PO (10:16)
[2022-11-05] MEDS: GABAPENTIN 300 MG CAPSULE 600 MG PO ×2 (10:16→16:53)
--- NOTE | 2022-11-05 10:18 | P.PNNP_ITS ---
Progress Note: A&P Assessment and Plan (1) Proteinuria: Qualifiers: Proteinuria type: unspecified Qualified Code(s): R80.9 - Proteinuria, unspecified Code(s): R80.9 - Proteinuria, unspecified Status: Acute Assessment and Plan: * as suggested by history and noted random urine testing * noted to > 15 grams of proteinuria (!) on initial testing * repeat testing demonstrates > 7.49 grams * serological testing pending * he still may need a renal biopsy for a definitive diagnosis * continue lisinopril for anti-proteinuric effects (2) Hydroureteronephrosis: Code(s): N13.30 - Unspecified hydronephrosis Status: Acute Assessment and Plan: * as noted by admission CT scan * adhikari catheter in place * post-obstructive diuresis noted * follow I/Os * Urology following (3) Elevated serum creatinine: Code(s): R79.89 - Other specified abnormal findings of blood chemistry Status: Acute Assessment and Plan: * resolved * apparently acute and likely secondary to #2 * follow repeat labs (4) Anasarca: Code(s): R60.1 - Generalized edema Status: Acute Assessment and Plan: * due to obstruction versus proteinuria/nephrotic syndrome versus combination of both * swelling/edema improving with current interventions * could use diuretics but would follow I/Os given post-obstructive diuresis (5) HTN (hypertension): Code(s): I10 - Essential (primary) hypertension Status: Chronic Assessment and Plan: * reasonable control for now * follow trend with ongoing post obstructive diuresis (6) Type 2 diabetes mellitus with hyperglycemia, with long-term current use of insulin: Code(s): E11.65 - Type 2 diabetes mellitus with hyperglycemia; Z79.4 - correction (cur rent) use of insulin Status: Chronic Assessment and Plan: * follow accuchecks * glycemic control Will continue to follow. Subjective Date/time seen: 11/05/22 10:18 Due to ongoing hematuria, plan cystoscopy today for further intervention; no other acute issues or compliants voiced at this time; no events overnight or earlier this AM. Exam Narrative: General: WD/WN male in NAD Heart: normal S1 and S2; no rub Lungs: clear anteriorly, decreased at bases Abdomen: soft, nontender, nondistended, positive bowel sounds Extremities: no cyanosis or clubbing; trace edema Skin: no rash Objective Data Vital Signs Vital Signs: Vital Signs Temp Pulse Resp BP Pulse Ox 11/05/22 05:16 97.7 F 73 18 145/75 H 95 11/04/22 22:00 98.2 F 92 17 130/67 95 11/04/22 13:44 97.6 F 85 18 122/73 95 Intake/Output Intake/Output: Intake & Output 11/02/22 11/03/22 11/04/22 11/05/22 23:59 23:59 23:59 23:59 Intake Total 23715 7336 42997 250 Output Total 73198 39323 18101 [facility]03348 -[phone] -1280 250 Meds/Results Medications: Active Medications Generic Name Dose Route Start Last Admin Trade Name Timo PRN Reason Stop Dose Admin Aspirin 81 mg 11/01/22 09:00 11/04/22 08:07 Aspirin 81 Mg Enteric Tablet PO 81 mg DAILY DAVIS Administration Carvedilol 3.125 mg 11/01/22 09:00 11/04/22
--- NOTE | 2022-11-05 10:18 | PM.PNNEP ---
Progress Note: A&P Assessment and Plan (1) Proteinuria: Qualifiers: Proteinuria type: unspecified Qualified Code(s): R80.9 - Proteinuria, unspecified Code(s): R80.9 - Proteinuria, unspecified Status: Acute Assessment and Plan: as suggested by history and noted random urine testing noted to > 15 grams of proteinuria (!) on initial testing repeat testing demonstrates > 7.49 grams serological testing pending he still may need a renal biopsy for a definitive diagnosis continue lisinopril for anti-proteinuric effects (2) Hydroureteronephrosis: Code(s): N13.30 - Unspecified hydronephrosis Status: Acute Assessment and Plan: as noted by admission CT scan adhikari catheter in place post-obstructive diuresis noted follow I/Os Urology following (3) Elevated serum creatinine: Code(s): R79.89 - Other specified abnormal findings of blood chemistry Status: Acute Assessment and Plan: resolved apparently acute and likely secondary to #2 follow repeat labs (4) Anasarca: Code(s): R60.1 - Generalized edema Status: Acute Assessment and Plan: due to obstruction versus proteinuria/nephrotic syndrome versus combination of both swelling/edema improving with current interventions could use diuretics but would follow I/Os given post-obstructive diuresis (5) HTN (hypertension): Code(s): I10 - Essential (primary) hypertension Status: Chronic Assessment and Plan: reasonable control for now follow trend with ongoing post obstructive diuresis (6) Type 2 diabetes mellitus with hyperglycemia, with long-term current use of insulin: Code(s): E11.65 - Type 2 diabetes mellitus with hyperglycemia; Z79.4 - [facility]ota (current) use of insulin Status: Chronic Assessment and Plan: follow accuchecks glycemic control Will continue to follow. Subjective Date/time seen: 11/05/22 10:18 Due to ongoing hematuria, plan cystoscopy today for further intervention; no other acute issues or compliants voiced at this time; no events overnight or earlier this AM. Exam Narrative: General: WD/WN male in NAD Heart: normal S1 and S2; no rub Lungs: clear anteriorly, decreased at bases Abdomen: soft, nontender, nondistended, positive bowel sounds Extremities: no cyanosis or clubbing; trace edema Skin: no rash Objective Data Vital Signs Vital Signs: Vital Signs Temp Pulse Resp BP Pulse Ox 11/05/22 05:16 97.7 F 73 18 145/75 H 95 11/04/22 22:00 98.2 F 92 17 130/67 95 11/04/22 13:44 97.6 F 85 18 122/73 95 Intake/Output Intake/Output: Intake & Output 11/02/22 11/03/22 11/04/22 11/05/22 23:59 23:59 23:59 23:59 Intake Total 72621 7376 78284 250 Output Total 06908 96944 [id number] [facility]61535 -[phone] -1280 250 Meds/Results Medications: Active Medications Generic Name Dose Route Start Last Admin Trade Name Freq PRN Reason Stop Dose Admin Aspirin 81 mg 11/01/22 09:00 11/04/22 08:07 Aspirin 81 Mg Enteric Tablet PO 81 mg DAILY DAVIS Administration Carvedilol 3.125 mg 11/01/22 09:00 11/04/22 08:07 Carvedilol 3.125 Mg Tablet PO 3.125 mg DAILY DAVIS Administration Dextrose 12.5 gm 11/01/22 08:25 Dextrose 50% 25 Gm/50 Ml Syringe IV PUSH PRN PRN Hypoglycemia Protocol Empagliflozin 10 mg 11/01/22 09:00 11/04/22 08:08 Empagliflozin 10 Mg Tablet PO 10 mg DAILY DAVIS Administration Finasteride 5 mg 11/02/22 09:00 11/04/22 08:08 Finasteride 5 Mg Tablet PO 5 mg QAM DAVIS Administration Gabapentin 600 mg 11/01/22 09:00 11/04/22 17:34 Gabapentin 300 Mg Capsule PO 600 mg TID DAVIS Administration Glucagon 1 mg 11/01/22 08:25 Glucagon For Inj 1 Mg Vial IM PRN PRN Hypoglycemia Protocol Glucose 15 gm 11/01/22 08:25 Glucose Oral Gel 15 Gm Of Glucse In 37.5 Gm Tube PO PRN
[2022-11-05 11:47] LABS: Glucose Point of Care 171 mg/dl (65-105)
--- NOTE | 2022-11-05 13:01 | WPDANESEPPF ---
Anes - Initial Pre Proc Eval Procedure: Operation Date: 11/05/22 13:15 Proposed Procedures p Cystoscopy, Bladder Fulguration; Possible Evacuation Bladder Clots - Ahmet Hernandez MD Date/Time: 11/05/22 13:01 Surgeon: Shalonda Del Valle DO Pre Op Diagnosis: Obstructive uropathy,bilhydroureteronephrosis,prot Patient Data Age: 67 Gender: M Height: 1.75 m Weight: 94.5 kg Last Vital Signs Temp 98.5 F 11/05/22 12:37 Pulse 80 11/05/22 12:37 Resp 16 11/05/22 12:37 BP 123/67 11/05/22 12:37 Pulse Ox 96 11/05/22 12:37 O2 Del Method Room Air 11/05/22 12:37 Allergies Allergy/AdvReac Type Severity Reaction Status Date / Time acetaminophen [From Vicodin] Allergy Hives Verified 10/31/22 23:26 hydrocodone [From Vicodin] Allergy Hives Verified 10/31/22 23:26 Penicillins AdvReac Fainting Verified 10/31/22 23:26 Home Medications Medication Instructions Recorded Confirmed Type aspirin 81 mg tablet,delayed 81 mg PO DAILY 10/31/22 10/31/22 History release carvedilol 3.125 mg tablet 3.125 mg PO DAILY 10/31/22 10/31/22 History cholecalciferol (vitamin D3) 50 50 mcg PO DAILY 10/31/22 10/31/22 History mcg (2,000 unit) tablet empagliflozin 10 mg tablet 10 mg PO DAILY 10/31/22 10/31/22 History (Jardiance) ezetimibe 10 mg tablet 10 mg PO DAILY 10/31/22 10/31/22 History gabapentin 600 mg tablet 600 mg PO TID 10/31/22 10/31/22 History insulin glargine 100 unit/mL 60 unit subcut HS 10/31/22 10/31/22 History subcutaneous solution (Lantus U-100 Insulin) insulin syringe-needle U-100 1 mL 10/31/22 10/31/22 History 30 gauge x 1/2 (BD Insulin Syringe Ultra-Fine) lisinopril 40 mg tablet 40 mg PO DAILY 10/31/22 10/31/22 History pantoprazole 40 mg tablet,delayed 40 mg PO HS 10/31/22 10/31/22 History release pravastatin 40 mg tablet 40 mg PO HS 10/31/22 10/31/22 History sitagliptin phos 50 mg-metformin 50 - 1,000 tablet PO DAILY 10/31/22 10/31/22 History ER 1,000 mg tablet,extend rel 24h mp (Janumet XR) sitagliptin phosphate 50 mg tablet 50 mg PO DAILY 10/31/22 11/01/22 History (Octuvia) Laboratory Tests 11/01/22 11/04/22 11/04/22 14:14 16:39 20:13 WBC RBC Hgb Hct MCV MCH MCHC RDW Plt Count MPV Sodium Potassium Chloride Carbon Dioxide Anion Gap BUN Creatinine Estim Creat Clear Calc Estimated GFR Glucose POC Capillary Glucose 100 mg/dl mg/dl 195 mg/dl H mg/dl (65-105) (65-105) Calcium Magnesium Total Protein 5.1 g/dL L g/dL (6.1-8.1) Albumin 2.8 g/dL L g/dL (3.8-4.8) Skhoc-4-Nhzbrbaca 0.4 g/dL H g/dL (0.2-0.3) Njzvy-0-Nssdhqqpo 0.8 g/dL g/dL (0.5-0.9) Bkpv-0-Jwlijuom 0.3 g/dL L g/dL (0.4-0.6) Eapb-6-Rowospyl 0.2 g/dL g/dL (0.2-0.5) Gamma Globulins 0.6 g/dL L g/dL (0.8-1.7) Abnorm Protein Band 1 see below Abnorm Protein Band 3 Not Reportable PEP Interpretation see below A 11/05/22 11/05/22 11/05/22 07:28 07:28 07:49 WBC 8.4 K/mm3 K/mm3 (4.5-10.0) RBC 4.35 M/mm3 L M/mm3 (4.6-6.20) Hgb 14.1 g/dL g/dL (14.0-18.0) Hct 40.8 % L % (42.0-52.0) MCV 93.8 fl fl (80-100) MCH 32.4 pg pg (26-34) MCHC 34.6 g/dl g/dl (32-36) RDW 12.7 % % (11.5-14.5) Plt Count 264 k/mm3 k/mm3 (150-375) MPV 10.5 fl H fl (7.4-10.4) Sodium 140 mmol/L mmol/L (137-145) Potassium 4.0 mmol/L mmol/L (3.4-5.0) Chloride 107 mmol/L mmol/L (98-107) Carbon Dioxide 30 mmol/L mmol/L (22-30) Anion Gap 3 mmol/L L mmol/L (8-16) BUN
[2022-11-05] MEDS: LACTATED RINGERS 1,000 ML 30 ML IV CONT (13:17)
--- NOTE | 2022-11-05 13:24 | WPDHPUPDATE1 ---
History and Physical Update Update Date/Time: 11/05/22 13:24 History and Physical has been reviewed, including an updated exam of the patient. There are NO changes in the patient's condition. Risks, benefits, and alternatives have been discussed and questions answered. Patient agrees to proceed with procedure.
[2022-11-05] MEDS: ceFAZolin 2 GM/D5W 50 ML 2 GM/50 ML BAG IVPB (13:28)
[2022-11-05] MEDS: LIDOCAINE HCL 2% GEL UROJET 10 ML PKG MUCOUS MEM (13:42)
--- NOTE | 2022-11-05 14:00 | W.PM.PROC2 ---
Procedure Note - Detailed Date of Procedure 11/05/22 Pre-op Diagnosis Urinary retention, gross hematuria Post-op Diagnosis Same Procedure Performed Cystoscopy, cauterization of bladder Surgeon Ahmet Hernandez MD Anesthesia General Findings Diffuse bladder wall hyperemia consistent with rapid decompression of a chronically overdistended bladder Description of Procedure patient is brought to the operative suite was prepped draped in routine sterile fashion while in dorsal lithotomy position. 2% xylocaine jelly was introduced intraurethrally and systemic sedation is administered per the anesthesia department. Cystoscopy is undertaken with a 24 F resectoscope sheath. He has a 3 cm prostatic urethra with predominantly lateral lobe hyperplasia. Bladder which co size shows diffuse edema hyperemia and erythema consistent with rapid decompression of chronically overdistended bladder. There was no evidence of intravesical neoplasm and there were no intravesical foreign bodies. I cauterized large portions of the patient's bladder where it appeared to be oozing small amounts of blood. There was no apparent bleeding from the prostatic urethra. Resectoscope was removed and a [address] catheter was placed to straight drainage. Urine Output 2,250 Complications No immediate complications Condition Stable Disposition PACU
[2022-11-05 14:17] LABS: Glucose Point of Care 146 mg/dl (65-105)
[2022-11-05 16:40] LABS: Glucose Point of Care 162 mg/dl (65-105)
--- NOTE | 2022-11-05 17:50 | PM.DS ---
DS: Admitting Diagnosis Discharge Date 11/05/22 Admitting Diagnosis Edema DS: Discharge Diagnosis Discharge Diagnosis (1) Acute bilateral obstructive uropathy: Code(s): N13.9 - Obstructive and reflux uropathy, unspecified Status: Acute (2) Gross hematuria: Code(s): R31.0 - Gross hematuria Status: Acute (3) Hydroureteronephrosis: Code(s): N13.30 - Unspecified hydronephrosis Status: Acute (4) Chronic kidney disease: Code(s): N18.9 - Chronic kidney disease, unspecified Status: Acute (5) Annabelle albicans infection: Code(s): B37.9 - Candidiasis, unspecified Status: Acute (6) Proteinuria: Qualifiers: Proteinuria type: unspecified Qualified Code(s): R80.9 - Proteinuria, unspecified Code(s): R80.9 - Proteinuria, unspecified Status: Acute (7) Type 2 diabetes mellitus with hyperglycemia, with long-term current use of insulin: Code(s): E11.65 - Type 2 diabetes mellitus with hyperglycemia; Z79.4 - 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 Please see H&P for details Hospital Course: Patient presents with LE edema. CT reviewed and showing bladder wall thickening and fat stranding as well as severe bilateral hydrourteronephrosis with distended bladder. BPH noted. Suspect BPH with obstruction and possibly nephrotic syndrome and/or neurogenic bladder. No blood by UA but now having gross hematuria felt related to rapid bladder decompression. CBI started. Urology following and appreciate their input. Patient underwent cystoscopy which showed diffuse bladder wall hyperemia consistent with rapid decompression of a chronically overdistended bladder. Urine eventually cleared. Patient has history of CKD but his baseline numbers are unknown.?[place] he has GRUPO on CKD related to the obstructive symptoms.? Given the nature of his edema/anasarca and that he has 3+ proteinuria, the patient may have nephrotic syndrome.?Prot/Cr ratio>15 (>7.5gm on repeat) but possibly related to obstructive process. Cr improved with decompression of the bladder. Nephrology following and appreciate their input. Complement normal. Serologies pending. Echo showing EF 65-70% with Grade I diastolic dysfunction. Tobacco cessation was encouraged.? patient overall did well was able be discharged home on 11/05/2022. Status at Discharge Cognitive/behavioral status at discharge: Stable Time Spent with Patient Time attestation: Total time spent providing and/or coordinating discharge services: 35 minutes Time spent: Greater than 30 minutes Exam Narrative: Gen - NARD Chest -clear to auscultation. Normal respiratory rate. CV - RRR S1/S2 Abd - Soft, NT/ND, Positive BS - urine clear. Ext - no pedal edema Psych - Nml mood and affect Skin - Warm and dry DS: Data Data Completed and Pending Labs on day of discharge: Labs from last 24 hours 11/05/22 11/05/22 11/05/22 16:23 14:15 11:33 WBC RBC Hgb Hct MCV MCH MCHC RDW Plt Count MPV Sodium Potassium Chloride Carbon Dioxide Anion Gap BUN Creatinine Estim Creat Clear Calc Estimated GFR Glucose POC Capillary Glucose 162 H 146 H 171 H Calcium Magnesium 11/05/22 11/05/22 11/05/22 07:49 07:28 07:28 WBC 8.4 RBC 4.35 L Hgb 14.1 Hct 40.8 L MCV 93.8 MCH 32.4 MCHC 34.6 RDW 12.7 Plt Count 264 MPV 10.5 H Sodium 140 Potassium 4.0 Chloride 107 Carbon Dioxide 30 Anion Gap 3 L BUN 16 Creatinine 1.10 Estim Creat Clear Calc 64 Estimated GFR > 60 Glucose 150 H POC Capill
[2022-11-05 18:38] LABS: Chloride Rand Ur 83 mmol/L (32-290); Chloride/Creatinine Rand Ur 218 (23-275); Creatinine Random Urine 38 mg/dL (20-320)
[2022-11-05 20:00] LABS: Anti Glomerular Basement Memb <1.0 AI (<1.0)
[2022-11-06 18:51] LABS: Complement Total CH50 >60 U/mL (31-60)
[2022-11-07 22:31] LABS: ANCA Screen Negative (Negative)
--- NOTE | 2022-11-12 08:59 | PC.NURSE ---
ANCA is negative. Dr. Irena carmichael.
[2022-11-12 14:59] LABS: Creatinine, Random Urine 38 mg/dL (20-320); Total Protein/Creatinine Ratio 16263 mg/g creat (25-148)
== END 2022-11-05 18:40 | disposition home or self-care (01) | DRG 717 ==
LOC: ANHED 11-01 03:33 → ANH3MEDSUR 11-01 04:14
PROVIDERS: Emergency Medicine; Internal Medicine Nephrology; Physician Assistant; Urology; Admitting Provider Internal Medicine; Emergency Provider Emergency Medicine; Visit Provider Internal Medicine
PROC: 0TCB8ZZ Extirpation of Matter from Bladder, Via Natural or Artificial Opening Endoscopic (ICD-10-PCS; CPT 52001; principal; 2022-11-05 13:15)
DX: N40.1 Benign prostatic hyperplasia with lower urinary tract symptoms (principal); N13.39 Other hydronephrosis; N13.8 Other obstructive and reflux uropathy; N17.9 Acute kidney failure, unspecified; Z20.822 Contact with and (suspected) exposure to COVID-19; R33.8 Other retention of urine; R31.0 Gross hematuria; E11.65 Type 2 diabetes mellitus with hyperglycemia; E11.22 Type 2 diabetes mellitus with diabetic chronic kidney disease; I12.9 Hypertensive chronic kidney disease with stage 1 through stage 4 chronic kidney disease, or unspecified chronic kidney disease; N18.9 Chronic kidney disease, unspecified; E11.21 Type 2 diabetes mellitus with diabetic nephropathy; E78.5 Hyperlipidemia, unspecified; F17.210 Nicotine dependence, cigarettes, uncomplicated; R80.9 Proteinuria, unspecified; B37.2 Candidiasis of skin and nail; Z79.4 Long term (current) use of insulin; Z98.42 Cataract extraction status, left eye; Z98.41 Cataract extraction status, right eye; Z96.1 Presence of intraocular lens
CPT/HCPCS: 36415; 51702; 71046; 74177; 80048; 80053; 80069; 81001; 81050; 82436; 82550; 82570; 82948; 83520; 83735; 83880; 84133; 84155; 84156; 84165; 84166; 84300; 84484; 85025; 85027; 85610; 85730; 85999; 86036; 86038; 86140; 86160; 86162; 86225; 86334; 87636; 93005; 93306; 96375; 99285; A9270; G0378; J0690; J1815; J2250; J2270; J2405; J2704; J3010; J3475; J7120; Q9967

== ENCOUNTER 2022-11-23 08:50 | Emergency (ER) | payer MEDICARE, OTHER, SELFPAY ==
[2022-11-23 08:53] VITALS: BP 128/70; PULSE 92; RESP 16; TEMP 36.4; O2SAT 97
--- NOTE | 2022-11-23 09:10 | ED.GENADULT ---
HPI - General Adult General Chief complaint: Urogenital-Male Stated complaint: Sent by Urologist Yesterday needs catheter Time Seen by Provider: 11/23/22 08:55 Source: RN notes reviewed History of Present Illness HPI narrative: Patient presents emergency room from home for urinary retention. Patient states that he is followed by Dr. Hernandez for urology. He states he was in the office yesterday and had his Riggs catheter removed. They state they did urine function testing and he was told he would need to be taught how to straight cath himself he states he did not want straight cath himself and that he was told he would need a Riggs catheter needed with a Riggs catheter put back in as well. He states he is told that he would be unable to urinate but he states that he did not want a catheter and had gone home patient states has been unable to urinate since he was in the office yesterday he notes pain in his lower abdomen he denies any fevers or chills chest pain or shortness of breath Related Data Home Medications Medication Instructions Recorded Confirmed aspirin 81 mg tablet,delayed 81 mg PO DAILY 10/31/22 10/31/22 release cholecalciferol (vitamin D3) 50 50 mcg PO DAILY 10/31/22 10/31/22 mcg (2,000 unit) tablet empagliflozin 10 mg tablet 10 mg PO DAILY 10/31/22 10/31/22 (Jardiance) ezetimibe 10 mg tablet 10 mg PO DAILY 10/31/22 10/31/22 gabapentin 600 mg tablet 600 mg PO TID 10/31/22 10/31/22 insulin syringe-needle U-100 1 mL 10/31/22 10/31/22 30 gauge x 1/2 (BD Insulin Syringe Ultra-Fine) lisinopril 40 mg tablet 40 mg PO DAILY 10/31/22 10/31/22 pantoprazole 40 mg tablet,delayed 40 mg PO HS 10/31/22 10/31/22 release pravastatin 40 mg tablet 40 mg PO HS 10/31/22 10/31/22 sitagliptin phos 50 mg-metformin 50 - 1,000 tablet PO DAILY 10/31/22 10/31/22 ER 1,000 mg tablet,extend rel 24h mp (Janumet XR) sitagliptin phosphate 50 mg tablet 50 mg PO DAILY 10/31/22 11/01/22 (Januvia) Allergies Allergy/AdvReac Type Severity Reaction Status Date / Time acetaminophen [From Vicodin] Allergy Hives Verified 11/23/22 08:52 hydrocodone [From Vicodin] Allergy Hives Verified 11/23/22 08:52 Penicillins AdvReac Fainting Verified 11/23/22 08:52 Review of Systems Review of Systems: Gen.: Denies fevers or chills ENT: Denies congestion Respiratory: Denies shortness of breath or cough CV: Denies chest pain or palpitations GI: Reports lower abdominal pain, denies nausea, emesis or diarrhea see HPI Musculoskeletal: Denies back pain or muscle pain Neuro: Denies numbness, tingling, weakness or focal weakness Skin: Denies rash Except as documented, all other systems reviewed and negative PMFSH Past Medical History Medical History Chronic kidney disease Diabetes mellitus Essential hypertension HTN (hypertension) Hyperlipidemia Tobacco use disorder, continuous Surgical History Surgical History History of arthroscopy of left shoulder History of carpal tunnel release History of neck surgery X3 History of shoulder surgery Right shoulder reconstruction due to advance arthritis History of tonsillectomy and adenoidectomy S/P cubital tunnel release Right Status post cataract extraction of both eyes with insertion of intraocular lens Family History Family History Sibling Liver cancer Lung cancer Mother Cerebrovascular accident Father Suicide Social History Social History Social History: He is . Smoking packs per day: 1.5 Smoking cigarettes per day: 30.0 Years smoked: 50 Smoking pack-years: 75.00 Smoking status: Current every day smoker Tobacco type: cigarettes Alcohol intake: current Drinks per week: 12 Alcohol use details: He drinks 12 shots every Friday
--- NOTE | 2022-11-23 09:43 | PC.NURSE ---
Indwelling catheter clamped off at 1000cc of output.
[2022-11-23 10:01] LABS: Amorphous Sediment Urine Few; Bacteria Urine Trace /hpf; RBC Urine >75 /hpf (0-2); WBC Clumps Urine Present /HPF; WBC Urine >75 /hpf
[2022-11-23 10:35] LABS: Appearance Urine Cloudy (Clear); Color Urine Red (Yellow)
[2022-11-23 10:36] LABS: Protein Urine 1+ mg/dL (Negative); Specific Grav Ur 1.015 (1.001-1.035)
[2022-11-23 10:37] LABS: Bilirubin Urine Negative (Negative); Blood Urine 4+ (Negative); Ketones Urine Negative (Negative); Nitrate Urine Negative (Negative)
[2022-11-23 10:38] LABS: Add Urine Microscopic? YES; Leukocyte Esterase Ur Trace LEU/UL (Negative); Urobilinogen Urine 0.2 mg/dL (<2.0)
[2022-11-23 10:39] LABS: Glucose Urine UA 1+ mg/dL (Negative)
[2022-11-23 11:03] VITALS: BP 126/78; PULSE 86; RESP 15; TEMP 37; O2SAT 98
[2022-11-23] MEDS: CIPROFLOXACIN 500 MG TAB PO (11:07)
--- NOTE | 2022-11-23 11:16 | PC.NURSE ---
NaCL used for catheter irrigation. Catheter irrigated until output was clear. EDP Isacc aware. Patient states he is ready to go home.
== END 2022-11-23 11:29 | disposition home or self-care (01) ==
PROVIDERS: Emergency Provider Emergency Medicine
DX: N39.0 Urinary tract infection, site not specified (principal); R33.9 Retention of urine, unspecified; E11.22 Type 2 diabetes mellitus with diabetic chronic kidney disease; I12.9 Hypertensive chronic kidney disease with stage 1 through stage 4 chronic kidney disease, or unspecified chronic kidney disease; N18.9 Chronic kidney disease, unspecified; E78.5 Hyperlipidemia, unspecified; Z98.42 Cataract extraction status, left eye; Z98.41 Cataract extraction status, right eye; Z96.1 Presence of intraocular lens; F17.210 Nicotine dependence, cigarettes, uncomplicated; Z79.4 Long term (current) use of insulin; Z79.84 Long term (current) use of oral hypoglycemic drugs; Z79.82 Long term (current) use of aspirin
CPT/HCPCS: 51702; 81001; 87086; 99283; A9270

== ENCOUNTER 2022-12-26 01:05 | Day surgery (SDC) | payer MEDICARE, OTHER, SELFPAY ==
--- NOTE | 2022-12-18 07:43 | PM.IMHP ---
H&P: HPI History of Present Illness Date/Time: 12/18/22 07:43 Chief Complaint: Urinary retention Narrative: This is a pleasant 67-year-old with longstanding urinary retention in urodynamics showing an atonic bladder. He has been managed with an indwelling catheter but now, instead, for placement of suprapubic catheter. he is aware of the risks, including but not limited to, adverse cardiopulmonary events, bowel injury, hematuria. Review of Systems Cardiovascular: Cardiovascular: Denies chest pain, Denies lightheadedness, Denies palpitations and Denies dyspnea Respiratory: Respiratory: Denies dyspnea Gastrointestinal: Gastrointestinal: Denies diarrhea, Denies nausea and Denies vomiting Genitourinary: Genitourinary: Denies hematuria and Denies dysuria Endocrine: Endocrine: Denies palpitations PMFSH Past Medical History Medical History Chronic kidney disease Diabetes mellitus Essential hypertension HTN (hypertension) Hyperlipidemia Tobacco use disorder, continuous Surgical History Surgical History History of arthroscopy of left shoulder History of carpal tunnel release History of neck surgery X3 History of shoulder surgery Right shoulder reconstruction due to advance arthritis History of tonsillectomy and adenoidectomy S/P cubital tunnel release Right Status post cataract extraction of both eyes with insertion of intraocular lens Family History Family History Sibling Liver cancer Lung cancer Mother Cerebrovascular accident Father Suicide Social History Social History Social History: He is . Smoking packs per day: 1.5 Smoking cigarettes per day: 30.0 Years smoked: 50 Smoking pack-years: 75.00 Smoking status: Current every day smoker Tobacco type: cigarettes Alcohol intake: current Drinks per week: 12 Alcohol use details: He drinks 12 shots every Friday. Other substance usage details: pack and a half daily smoker Lack of Transportation: No Lack of Food: Never True Current Housing: I Have Housing Concerned About Future Housing: No Difficulty Paying Gas/Electric Bills: No Difficulty Paying for Meds: No Currently Unemployed: No Education: Decline to Answer Difficulty w/ Childcare or Family Care: No Gender identity (if verbalized by the patient): Male Sexual Orientation (if Verbalized by the Patient): Straight or Heterosexual Spiritual care concerns: No Agree to blood products: Yes Meds Home Medications and Allergies Home Medications Medication Instructions Recorded Confirmed Type aspirin 81 mg tablet,delayed 81 mg PO DAILY 10/31/22 11/26/22 History release cholecalciferol (vitamin D3) 50 50 mcg PO DAILY 10/31/22 11/26/22 History mcg (2,000 unit) tablet empagliflozin 10 mg tablet 10 mg PO DAILY 10/31/22 11/26/22 History (Jardiance) ezetimibe 10 mg tablet 10 mg PO DAILY 10/31/22 11/26/22 History gabapentin 600 mg tablet 600 mg PO TID 10/31/22 11/26/22 History insulin syringe-needle U-100 1 mL 10/31/22 11/26/22 History 30 gauge x 1/2 (BD Insulin Syringe Ultra-Fine) lisinopril 40 mg tablet 40 mg PO DAILY 10/31/22 11/26/22 History pantoprazole 40 mg tablet,delayed 40 mg PO HS 10/31/22 11/26/22 History release pravastatin 40 mg tablet 40 mg PO HS 10/31/22 11/26/22 History sitagliptin phos 50 mg-metformin 50 - 1,000 tablet PO DAILY 10/31/22 11/26/22 History ER 1,000 mg tablet,extend rel 24h mp (Janumet XR) sitagliptin phosphate 50 mg tablet 50 mg PO DAILY 10/31/22 11/26/22 History (Januvia) carvedilol 3.125 mg tablet 3.125 mg PO BID #60 tabs 11/05/22 11/26/22 Rx finasteride 5 mg tablet (Proscar) 5 mg PO QAM #30 tabs 11/05/22 11/26/22 Rx insulin glargine 100 unit/mL 30 unit (0.3 mL)
[2022-12-20 10:53] VITALS: BMI 28.0
--- NOTE | 2022-12-20 11:02 | PC.NURSE ---
Report to the Outpatient Waiting Room, entrance under the green pavilion located off [facility], at time __1130 on date __12/26/22 . Planned Procedure Time: __1:30 PM . Time changes happen often and if your time is changed the preop area will call you the afternoon before. - You and your visitor will be asked to self-screen and do not enter if you have any COVID symptoms. - Only one visitor is requested with a max of two and NO children visitors are allowed at this time. - The patient visitor may be requested to leave or wait in car when not with patient due to distancing restrictions. - A mask is optional within the hospital at this time. Patients may have clear liquids (water, carbonated beverages, clear teas, apple juice) until 3 hours prior to surgery (1030 AM) with a maximum of 20 ounces. - No food from midnight until time of surgery - Infants may have breast milk until 4 hours before surgery, formula 6 hours prior to surgery. - Children will be allowed to drink immediately following surgery. If applicable, please bring a bottle or sippy cup to assist with drinking. Juice, water, soda, and popsicles are readily available. For infants on formula, please bring formula the day of surgery. Pacifiers are allowed. Take the following medications with a SIP of water the morning of surgery: ____CARVEDILOL, GABAPENTIN DO NOT STOP ANY OF YOUR OTHER PRESCRIPTION MEDICATIONS PRIOR TO SURGERY ?EXCEPT THE FOLLOWING Medications to discontinue per physician STATES STOPPED ASPIRIN 12/18/22 Date to take last dose Please no make-up, nail vietnamese, hairspray, perfume, deodorant, or body powder the day of surgery. No jewelry (including any body piercings) or valuables the day of surgery, leave them at home. Please take a shower or bath the night before, or the morning of, surgery with an antibacterial soap. Wear comfortable, loose fitting clothing. Children are encouraged to wear pajamas. - Jewelry must be removed prior to entering the operating room. Rings and piercings that are not removed may be cut off. - The hospital will not accept responsibility for valuables. - Please leave all valuables, including medications, at home the day of surgery. If you are going home after surgery, a licensed marine engine driver must drive you home. - NO public transportation without another adult if you receive anesthesia. - We recommend that an adult stay with you for 24 hours following discharge. - We also recommend that you do not drive, make important decision, drink alcoholic beverages, or take any drugs that were not prescribed by your health care provider for at least 24 hours after your discharge time. For Pediatric surgeries, we recommend two adults accompany the child home. Follow any additional instructions given to you from your surgeon. If you or anyone in your household have experienced Covid symptoms in the past week, please notify your surgeon or the nurse liaison at the phone number below for possible testing. Telephone instructions given to ___PT and asked if any additional questions and then verbalized understanding. Patient advised to call surgeon office or pre surgery nurse liaison [phone] if any additional questions.
[2022-12-26] VITALS (7 sets, daily range): BP systolic 96–138; BP diastolic 61–80; PULSE 61–73; RESP 10–16; TEMP 36.4; O2SAT 92–100
--- NOTE | 2022-12-26 06:40 | WPDHPUPDATE1 ---
History and Physical Update Update Date/Time: 12/26/22 06:40 History and Physical has been reviewed, including an updated exam of the patient. There are NO changes in the patient's condition. Risks, benefits, and alternatives have been discussed and questions answered. Patient agrees to proceed with procedure.
[2022-12-26] MEDS: LACTATED RINGERS 1,000 ML 30 ML IV CONT (11:30)
--- NOTE | 2022-12-26 12:08 | WPDANESEPPF ---
Anes - Initial Pre Proc Eval Procedure: Operation Date: 12/26/22 13:00 Proposed Procedures p Cystoscopy,Insertion Suprapubic Tube - Ahmet Hernandez MD Date/Time: 12/26/22 12:08 Surgeon: Ahmet Hernandez MD Pre Op Diagnosis: neurogenic bladder, kidney disease Patient Data Age: 67 Gender: M Height: 1.75 m Weight: 86.3 kg Last Vital Signs Temp 36.4 C 12/26/22 11:58 Pulse 71 12/26/22 11:58 Resp 16 12/26/22 11:58 BP 138/71 12/26/22 11:58 Pulse Ox 100 12/26/22 11:58 O2 Del Method Room Air 12/26/22 11:58 Allergies Allergy/AdvReac Type Severity Reaction Status Date / Time hydrocodone [From Vicodin] Allergy Hives Verified 12/20/22 10:43 Penicillins AdvReac Fainting Verified 12/20/22 10:43 Home Medications Medication Instructions Recorded Confirmed Type aspirin 81 mg tablet,delayed 81 mg PO DAILY 10/31/22 12/20/22 History release cholecalciferol (vitamin D3) 50 50 mcg PO DAILY 10/31/22 12/20/22 History mcg (2,000 unit) tablet empagliflozin 10 mg tablet 10 mg PO DAILY 10/31/22 12/20/22 History (Jardiance) ezetimibe 10 mg tablet 10 mg PO DAILY 10/31/22 12/20/22 History gabapentin 600 mg tablet 600 mg PO TID 10/31/22 12/20/22 History insulin syringe-needle U-100 1 mL 10/31/22 12/20/22 History 30 gauge x 1/2 (BD Insulin Syringe Ultra-Fine) lisinopril 40 mg tablet 40 mg PO DAILY 10/31/22 12/20/22 History pantoprazole 40 mg tablet,delayed 40 mg PO HS 10/31/22 12/20/22 History release pravastatin 40 mg tablet 40 mg PO QAM 10/31/22 12/20/22 History sitagliptin phos 50 mg-metformin 50 - 1,000 tablet PO DAILY 10/31/22 12/20/22 History ER 1,000 mg tablet,extend rel 24h mp (Janumet XR) sitagliptin phosphate 50 mg tablet 50 mg PO DAILY 10/31/22 12/20/22 History (Januvia) carvedilol 3.125 mg tablet 3.125 mg PO BID #60 tabs 11/05/22 12/20/22 Rx finasteride 5 mg tablet (Proscar) 5 mg PO QAM #30 tabs 11/05/22 12/20/22 Rx tamsulosin 0.4 mg capsule 0.4 mg PO QAM #30 caps 11/05/22 12/20/22 Rx insulin glargine 100 unit/mL 60 unit subcut HS 12/20/22 12/20/22 History subcutaneous solution (Lantus U-100 Insulin) miconazole nitrate 2 % topical 1 applic topical Q12HR PRN Skin 12/20/22 12/20/22 History cream Irritation Laboratory Tests 12/26/22 11:47 APTT Pending Patient hx anesthesia problems: none Family hx anesthesia problems: none Results Review: All pre-operative results and documents have been reviewed as part of the pre-operative evaluation. [facility] Past Medical History Medical History Chronic kidney disease Diabetes mellitus Essential hypertension HTN (hypertension) Hyperlipidemia Tobacco use disorder, continuous Surgical History Surgical History History of arthroscopy of left shoulder History of carpal tunnel release History of neck surgery X3 History of shoulder surgery Right shoulder reconstruction due to advance arthritis History of tonsillectomy and adenoidectomy S/P cubital tunnel release Right Status post cataract extraction of both eyes with insertion of intraocular lens Family History Family History Sibling Liver cancer Lung cancer Mother Cerebrovascular accident Father Suicide Social History Social History Social History: He is . Smoking packs per day: 1.5 Smoking cigarettes per day: 30.0 Years smoked: 50 Smoking pack-years: 75.00 Smoking status: Former smoker Tobacco type: cigarettes Alcohol intake: current Drinks per week: 12 Alcohol use details: He drinks 12 shots every Friday. Substance use: never Substance use type: does not use Other substance usage details: pack and a half daily smoker Lack of Transportation: No Lack of Food:
[2022-12-26] MEDS: ceFAZolin 2 GM/D5W 50 ML 2 GM/50 ML BAG IVPB (12:18)
[2022-12-26] MEDS: LIDOCAINE HCL 1% LOCAL INJ 20 ML VIAL 10 ML INFILTRATE (12:23)
--- NOTE | 2022-12-26 12:50 | W.PM.PROC2 ---
Procedure Note - Detailed Date of Procedure 12/26/22 Pre-op Diagnosis Atonic bladder Post-op Diagnosis Same Procedure Performed Cystoscopy, placement s/p catheter Surgeon Ahmet Hernandez MD Anesthesia MAC and Local Description of Procedure Patient is brought to the operative suite where he has prepped and draped in routine sterile fashion while in a dorsal lithotomy position. Cystoscopy is undertaken with a 21 F rigid cystoscope. He has no urethral strictures with moderate lateral lobe hyperplasia of the prostate. Bladder mucosa is normal with only minimal hyperemia in the posterior wall consistent with catheter cystitis. There is no intravesical foreign body or neoplasm. I filled his bladder with saline and placed a spinal needle through the dome of the bladder and a 0.35 in glidewire was advanced through that and grasped with the cystoscope. I dilated the suprapubic tract with Amplatz dilators to from 8 F to 22 F. I then placed an 18 F Councill tip catheter through the dome. The suprapubic catheter secured with a 3 O nylon. Scopes wires removed. Blood loss was approximately 5 cc. Drains Yes Packing No Pathology None sent Complications No immediate complications Condition Stable
[2022-12-26 13:13] LABS: Glucose Point of Care 96 mg/dl (65-105)
[2022-12-26 13:44] LABS: Glucose Point of Care 110 mg/dl (65-105)
--- NOTE | 2022-12-26 14:00 | SUR.PHASEII ---
Spoke with Dr. Hernandez regarding patient's hematuria with clots in catheter tubing. Dr. Hernandez in to see patient. Stated urine condition was fine. No need to irrigate catheter. Okay to go ahead and plug catheter at discharge.
== END 2022-12-26 14:55 | disposition home or self-care (01) ==
PROVIDERS: Anesthesiology; Visit Provider Urology
PROC: 0T9B30Z Drainage of Bladder with Drainage Device, Percutaneous Approach (ICD-10-PCS; CPT 51102; principal; 2022-12-26 13:00)
DX: N31.2 Flaccid neuropathic bladder, not elsewhere classified (principal); I12.9 Hypertensive chronic kidney disease with stage 1 through stage 4 chronic kidney disease, or unspecified chronic kidney disease; E11.22 Type 2 diabetes mellitus with diabetic chronic kidney disease; N18.9 Chronic kidney disease, unspecified; E78.5 Hyperlipidemia, unspecified; Z87.891 Personal history of nicotine dependence; Z79.84 Long term (current) use of oral hypoglycemic drugs; Z79.82 Long term (current) use of aspirin; Z79.4 Long term (current) use of insulin
CPT/HCPCS: 51040; 36415; 82948; 85730; C1726; C1769; J0690; J2405; J2704; J3010; J7120

== ENCOUNTER 2023-02-10 15:50 | Emergency (ER) | payer MEDICARE, OTHER, SELFPAY ==
--- NOTE | 2023-02-10 17:01 | PC.NURSE ---
pt reports he does not want to wait to be seen and will come back when it's not so busy.
== END 2023-02-10 17:01 | disposition left against medical advice (07) ==
LOC: ANHED 17:22
DX: Z53.21 Procedure and treatment not carried out due to patient leaving prior to being seen by health care provider (principal)
CPT/HCPCS: 99199

== ENCOUNTER 2023-02-11 01:23 | Emergency (ER) | payer MEDICARE, OTHER, SELFPAY ==
[2023-02-11 01:33] VITALS: BP 129/84; PULSE 76; RESP 16; TEMP 36.7; O2SAT 99
[2023-02-11] MEDS: ACETAMINOPHEN 500 MG TABLET 1000 MG PO (03:34)
--- NOTE | 2023-02-11 05:46 | ED.GENADULT ---
HPI - General Adult General Chief complaint: Back Pain/Injury Stated complaint: seen by PCP and told he needs a CT of his back Time Seen by Provider: 02/11/23 03:22 History of Present Illness HPI narrative: This is a 67-year-old male presenting ED with chief complaint of back pain. Patient says he has been having back pain in his hips and lower back that radiates down the back of his right leg. He saw his PCP yesterday recommended he get a CT of his L-spine. The patient has been having this pain for 1 week, it is a stabbing/ burning pain that goes down the back of his leg, 10 out 10 intensity and getting worse. He has never had pain like this before, there is no exacerbating factors it is worse with movement. Patient denies fevers, trauma, history of cancer, urinary retention although he does have a suprapubic catheter from previous atonic bladder or bowel incontinence. He is able to ambulate. Related Data Home Medications Medication Instructions Recorded Confirmed aspirin 81 mg tablet,delayed 81 mg PO DAILY 10/31/22 12/20/22 release cholecalciferol (vitamin D3) 50 50 mcg PO DAILY 10/31/22 12/20/22 mcg (2,000 unit) tablet empagliflozin 10 mg tablet 10 mg PO DAILY 10/31/22 12/20/22 (Jardiance) ezetimibe 10 mg tablet 10 mg PO DAILY 10/31/22 12/20/22 gabapentin 600 mg tablet 600 mg PO TID 10/31/22 12/20/22 insulin syringe-needle U-100 1 mL 10/31/22 12/20/22 30 gauge x 1/2 (BD Insulin Syringe Ultra-Fine) lisinopril 40 mg tablet 40 mg PO DAILY 10/31/22 12/20/22 pantoprazole 40 mg tablet,delayed 40 mg PO HS 10/31/22 12/20/22 release pravastatin 40 mg tablet 40 mg PO QAM 10/31/22 12/20/22 sitagliptin phos 50 mg-metformin 50 - 1,000 tablet PO DAILY 10/31/22 12/20/22 ER 1,000 mg tablet,extend rel 24h mp (Janumet XR) sitagliptin phosphate 50 mg tablet 50 mg PO DAILY 10/31/22 12/20/22 (Januvia) insulin glargine 100 unit/mL 60 unit subcut HS 12/20/22 12/20/22 subcutaneous solution (Lantus U-100 Insulin) miconazole nitrate 2 % topical 1 applic topical Q12HR PRN Skin 12/20/22 12/20/22 cream Irritation Allergies Allergy/AdvReac Type Severity Reaction Status Date / Time hydrocodone [From Vicodin] Allergy Hives Verified 02/11/23 01:24 Penicillins AdvReac Fainting Verified 02/11/23 01:24 PMFSH Past Medical History Medical History Chronic kidney disease Diabetes mellitus Essential hypertension HTN (hypertension) Hyperlipidemia Tobacco use disorder, continuous Surgical History Surgical History History of arthroscopy of left shoulder History of carpal tunnel release History of neck surgery X3 History of shoulder surgery Right shoulder reconstruction due to advance arthritis History of tonsillectomy and adenoidectomy S/P cubital tunnel release Right Status post cataract extraction of both eyes with insertion of intraocular lens Family History Family History Sibling Liver cancer Lung cancer Mother Cerebrovascular accident Father Suicide Social History Social History (System 01/14/23 @ 14:48 by Jessica Zapata) Social History: He is . Smoking packs per day: 1.5 Smoking cigarettes per day: 30.0 Years smoked: 50 Smoking pack-years: 75.00 Smoking status: Former smoker Tobacco type: cigarettes Alcohol intake: current Drinks per week: 12 Alcohol use details: He drinks 12 shots every Friday. Substance use: never Substance use type: does not use Other substance usage details: pack and a half daily smoker Lack of Transportation: No Lack of Food: Never True Current Housing: I Have Housing Concerned About Future Housing: No Difficulty Paying Gas/Electric Bills: No Difficulty Paying for Meds: No Currently Unemployed: No Education: Decline to Answer Difficulty w/ Childc
== END 2023-02-11 04:55 | disposition left against medical advice (07) ==
LOC: ANHED 03:54
PROVIDERS: Emergency Provider Emergency Medicine
DX: M54.41 Lumbago with sciatica, right side (principal); E11.22 Type 2 diabetes mellitus with diabetic chronic kidney disease; I12.9 Hypertensive chronic kidney disease with stage 1 through stage 4 chronic kidney disease, or unspecified chronic kidney disease; N18.9 Chronic kidney disease, unspecified; E78.5 Hyperlipidemia, unspecified; F17.210 Nicotine dependence, cigarettes, uncomplicated; Z98.42 Cataract extraction status, left eye; Z98.41 Cataract extraction status, right eye; Z96.1 Presence of intraocular lens; Z79.82 Long term (current) use of aspirin; Z79.4 Long term (current) use of insulin; Z79.84 Long term (current) use of oral hypoglycemic drugs
CPT/HCPCS: 99282; A9270

== ENCOUNTER 2024-07-04 14:53 | Emergency (ER) | payer MEDICARE, OTHER, SELFPAY ==
[2024-07-04 14:54] VITALS: BP 139/67; PULSE 74; RESP 16; TEMP 37.2; O2SAT 98
--- NOTE | 2024-07-04 15:28 | ED.GENADULT ---
HPI - General Adult General Chief complaint: Urogenital-Male Stated complaint: catheter problems Time Seen by Provider: 07/04/24 15:08 History of Present Illness HPI narrative: Patient is a 69-year-old male who presents to the emergency department this afternoon due to suprapubic catheter malfunction. Patient states that the catheter fell out on its own today. He follows up with his urologist Dr. Hernandez regularly and states that he needs to have his suprapubic catheter changed approximately once a month. Denies any abdominal pain, any fevers or chills, nausea or vomiting. No additional symptoms or concerns at this time. Related Data Home Medications Medication Instructions Recorded Confirmed aspirin 81 mg tablet,delayed 81 mg PO DAILY 10/31/22 06/01/24 release cholecalciferol (vitamin D3) 50 50 mcg PO DAILY 10/31/22 06/01/24 mcg (2,000 unit) tablet ezetimibe 10 mg tablet 10 mg PO DAILY 10/31/22 06/01/24 gabapentin 600 mg tablet 600 mg PO TID 10/31/22 06/01/24 insulin syringe-needle U-100 1 mL 10/31/22 06/01/24 30 gauge x 1/2 (BD Insulin Syringe Ultra-Fine) lisinopril 40 mg tablet 40 mg PO DAILY 10/31/22 06/01/24 pantoprazole 40 mg tablet,delayed 40 mg PO HS 10/31/22 06/01/24 release pravastatin 40 mg tablet 40 mg PO QAM 10/31/22 06/01/24 melatonin 10 mg capsule 10 mg PO QHS 06/03/23 06/01/24 insulin glargine 100 unit/mL 30 unit subcut HS 12/02/23 06/01/24 subcutaneous solution (Lantus U-100 Insulin) dulaglutide 1.5 mg/0.5 mL 1.75 mg subcut WEEKLY 06/01/24 06/01/24 subcutaneous pen injector (Trulicity) empagliflozin 25 mg tablet 25 mg PO DAILY 06/01/24 06/01/24 Allergies Allergy/AdvReac Type Severity Reaction Status Date / Time hydrocodone [From Vicodin] Allergy Hives Verified 06/01/24 13:14 Penicillins AdvReac Fainting Verified 06/01/24 13:14 Review of Systems Review of Systems: All systems are reviewed and are negative unless stated otherwise in the HPI. [facility] Past Medical History Medical History Chronic kidney disease Diabetes mellitus Essential hypertension HTN (hypertension) Hyperlipidemia Tobacco use disorder, continuous Surgical History Surgical History History of arthroscopy of left shoulder History of carpal tunnel release History of neck surgery X3 History of shoulder surgery Right shoulder reconstruction due to advance arthritis History of tonsillectomy and adenoidectomy S/P cubital tunnel release Right Status post cataract extraction of both eyes with insertion of intraocular lens Family History Family History Sibling Liver cancer Lung cancer Mother Cerebrovascular accident Father Suicide Other Family history of cardiovascular disease Family history of chronic obstructive pulmonary disease Family history of malignant neoplasm Hypertension Social History Social History Social History: He is . Smoking packs per day: 1.5 Smoking cigarettes per day: 30.0 Years smoked: 50 Smoking pack-years: 75.00 Smoking status: Former smoker Tobacco type: cigarettes Alcohol intake: current Drinks per week: 12 Alcohol use details: He drinks 12 shots every Friday. Substance use: never Substance use type: does not use Other substance usage details: pack and a half daily smoker Do You Feel Safe in your Home?: Yes Lack of Transportation: No Lack of Food: Never True Current Housing: I Have Housing Concerned About Future Housing: No Difficulty Paying Gas/Electric Bills: No Difficulty Paying for Meds: No Currently Unemployed: No Education: High School Diploma/GED Difficulty w/ Childcare or Family Care: No Living arrangements: with family Gender identity (if verbalized by the patient): Mal
--- NOTE | 2024-07-04 15:50 | PC.NURSE ---
PT suprapubic catheter replaced by EDP using a 16Fr catheter
[2024-07-04 16:03] VITALS: BP 107/74; PULSE 82; RESP 16; TEMP 36.6; O2SAT 95
== END 2024-07-04 16:05 | disposition home or self-care (01) ==
LOC: ANHED 15:35
PROVIDERS: Emergency Provider Emergency Medicine
DX: T83.028A Displacement of other urinary catheter, initial encounter (principal); Z79.82 Long term (current) use of aspirin; N18.9 Chronic kidney disease, unspecified; E11.22 Type 2 diabetes mellitus with diabetic chronic kidney disease; I12.9 Hypertensive chronic kidney disease with stage 1 through stage 4 chronic kidney disease, or unspecified chronic kidney disease; E78.5 Hyperlipidemia, unspecified; Z87.891 Personal history of nicotine dependence
CPT/HCPCS: 99282

== ENCOUNTER 2024-12-03 05:46 | Day surgery (SDC) | payer MEDICARE, OTHER, SELFPAY ==
[2024-11-24 10:35] VITALS: BMI 27.3
--- OUTSIDE RECORDS SUMMARY | 2024-12-03 05:49 | XMS_ITS | Patient Health Summary ---
Author Organization [facility] Address [address] [place] [address] Care Team Providers Care Dress Designer Name Role Phone [facility], [facility] Medical [facility] Primary Care Prov ider Note from [facility],non-owned Affiliates and Associated Physician Practices is amultiple site organization consisting of ambulatory clinics and hospital sitesin [place], [place], [place] and [place]. This disclosure is being madepursuant to the Care Everywhere program and may not contain all information available regarding this patient. Last updated 18.[facility] Allergies * Hydrocodone-Acetaminophen(Rash) -Medium Criticality * Penicillins(Other) Medications * Be aware that medications may not be up to date on this document. Alwaysverify current medications with the patient. * zolpidem (AMBIEN) 10 MG tablet(Started 04/12/2020) * JANUMET XR 50-1000 MG tablet(Started 06/19/2020) * JANUVIA 50 MG tablet(Started 05/01/2020) * pravastatin (PRAVACHOL) 40 MG tablet(Started 06/19/2020) * pantoprazole EC (PROTONIX) 40 MG tablet(Started 06/08/2020) * lisinopril (PRINIVIL; ZESTRIL) 40 MG tablet(Started 05/01/2020) * LANTUS vial(Started 06/08/2020) * GLUCAGON EMERGENCY injection(Started 06/21/2020) * gabapentin (NEURONTIN) 600 MG tablet(Started 04/10/2020) * ezetimibe (ZETIA) 10 MG tablet(Started 05/15/2020) * Vitamin D3, cholecalciferol, 50 MCG (1999 UT) tablet(Started 06/19/2020) * ASPIRIN LOW DOSE 81 MG tablet(Started 06/19/2020) * amLODIPine (NORVASC) 10 MG tablet(Started 05/01/2020) * carvedilol (COREG) 3.125 MG tablet(Started 05/15/2020) * cyclobenzaprine (FLEXERIL) 5 MG tablet(Started 03/08/2020) * JARDIANCE 10 MG tablet(Started 06/08/2020) Active Problems Problem Noted Date Diagnosed Date Vitamin D deficiency 12/03/2021 Trigeminal neuralgia 12/03/2021 Nuclear senile cataract 12/03/2021 Cortical senile cataract 12/03/2021 Sector visual field defect 12/03/2021 Referral of patient without examination or treat ment 12/03/2021 Tear film insufficiency 12/03/2021 Tobacco user 12/03/2021 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 12/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 Psoriasis 12/03/2021 Presbyopia 12/03/2021 Posterior subcapsular polar cataract 12/03/2021 Poorly controlled diabetes mellitus 12/03/2021 Pins and needles sensation 12/03/2021 Pain in joint, lower leg 12/03/2021 Other specified disease of nail 12/03/2021 Obesity 12/03/2021 Mild nonproliferative diabetic retinopathy 12/03 Insomnia 12/03/2021 Fall 09/12/2021 Closed nondisplaced fracture of second cervical vertebra 09/12/2021 Traumatic subarachnoid hemor rhage with loss of consciousness of 30 minutes or less 03/04/2021 Lumbar radiculopathy 08/07/2020 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 Immunizations * PNEUMOCOCCAL PPSV23(Given 09/25/2020, 07/13/2008) * TDAP (7yrs+)(Given 2013) * Td (Adult), 2 Lf Tetanus Toxoid, Adsorbed, Pf(Given 10/06/2004) * ZOSTER VACCINE, LIVE(Given 2013) * Zoster Hzv Vacc Recombinant Inj Im(Given 12/04/2020, 09/25/2020) Social History Tobacco Use Types Packs/Day Years Used Date Smoking Tobacco: Every Day Cigarettes Smokeless Tobacco: Never Tobacco Cessation:Ready to Q uit: No; Counseling Given: Yes Alcohol Use Standard Drinks/Week Comments Yes 0 (1 standard drink = 0.6 oz pure alcohol) 20 shots of whiskey every Friday Sex and Gender Information Value Date Recorded Sex Assigned at Not on file Gender Identity Not on file Sexual Orientation Not on file Last Filed Vital Signs Vital Sign Reading Time Taken Comments Blood Pressure 125/64 09/12/2021 3:39 PM HAND METHOD LASTING MACHINE OPERATOR Pulse 88 09/12/2021 3:39 PM HAND METHOD LASTING MACHINE OPERATOR Temperature 37.4 C (99.3 F) 09/11/2021 9:43 PM HAND METHOD LASTING MACHINE OPERATOR Respiratory Rate 12 09/12/2021 3:39 PM HAND METHOD LASTING MACHINE OPERATOR Oxygen Saturation 95% 09/12/2021 3:39 PM HAND METHOD LASTING MACHINE OPERATOR Inhaled Oxygen Concentration - - Weight 92.4 kg (203 lb 12.8 oz) 12/03/2021 9:02 AM HAND METHOD LASTING MACHINE OPERATOR Height 175.3 cm (5' 9 ) 12/03/2021 9:02 AM HAND METHOD LASTING MACHINE OPERATOR Body Mass Index 30.1 12/03/2021 9:02 AM HAND METHOD LASTING MACHINE OPERATOR Procedures * XR CERVICAL SPINE 2 OR 3VW(Performed 12/03/2021) Performed for Closed nondisplaced fracture of second cervical vertebra, unspecified fracture morphology, initial encounter (FORMERLY [facility]) * XR CERVICAL SPINE 2 OR 3VW(Performed 10/22/2021) Performed for Closed odontoid fracture with routine healing, subsequent encounter * XR CERVICAL SPINE 2 OR 3VW(Performed 10/22/2021) Performed for Closed nondisplaced fracture of second cervical vertebra, unspecified fracture morphology, initial encounter (FORM[facility]LY [facility]) * XR CERVICAL SPINE 2 OR 3VW(Performed 09/24/2021) Performed for Closed nondisplaced fracture of second cervical vertebra, unspecified fracture morphology, initial encounter ([facility]) * GLUCOSE - POINT OF CARE(Performed 09/12/2021) * GLUCOSE - POINT OF CARE(Performed 09/12/2021) * CT LUMBAR SPINE WO CONTRAST(Performed 09/12/2021) Performed for Fall, initial encounter * CT THORACIC SPINE WO CONTRAST(Performed 09/12/2021) Performed for Fall, initial encounter * CT CHEST ABDOMEN PELVIS W CONT(Performed 09/12/2021) Performed for Fall, initial encounter * GLUCOSE - POINT OF CARE(Performed 09/12/2021) * GLUCOSE - POINT OF CARE(Performed 09/12/2021) * SARS-COV-2 (COVID-19)+INFLU A+B PCR RAPID(Performed 09/12/2021) * HEPATIC FUNCTION PANEL(Performed 09/12/2021) * FOLATE(Performed 09/12/2021) * VITAMIN B12(Performed 09/12/2021) * HEMOGLOBIN A1C(Performed 09/12/2021) * PT-INR [facility](Performed 09/12/2021) * PHOSPHORUS BLOOD(Performed 09/12/2021) * MAGNESIUM BLOOD(Performed 09/12/2021) * BASIC METABOLIC PANEL (CALCIUM TOTAL)(Performed 09/12/2021) * CBC W AUTO DIFFERENTIAL(Performed 09/12/2021) * GLUCOSE - POINT OF CARE(Performed 09/12/2021) * XR CERVICAL SPINE 2 OR 3VW(Performed 09/12/2021) Performed for Fall, initial encounter * MRI CERVICAL SPINE WO CONTRAST(Performed 09/12/2021) Performed for Fall, initial encounter * BLOOD TYPE VERIFICATION(Performed 09/11/2021) * PT-INR [facility](Performed 09/11/2021) * CBC W AUTO DIFFERENTIAL(Performed 09/11/2021) * TYPE + SCREEN PANEL(Performed 09/11/2021) * COMPREHENSIVE METABOLIC PANEL(Performed 09/11/2021) * XR PELVIS W BILAT HIP 2VW(Performed 08/29/2020) Performed for Pain of both hip joints * PAIN MANAGEMENT PROCEDURE TIME(Performed 08/29/2020) Performed for Lumbar radiculopathy * IMAGING/RADIOLOGY/XRAY RESULTS ORDER(Performed 07/01/2020) * XR LUMBAR SPINE 2 OR 3VW(Performed 06/27/2020) Performed for Low back pain, unspecified back pain laterality, unspecified chronicity, unspecified whether sciatica present * LAB MICROBIOLOGY - HPF HISTORICAL(Performed 09/10/2011) Results * XR CERVICAL SPINE 2 OR 3VW (12/03/2021 8:53 AM HAND METHOD LASTING MACHINE OPERATOR) Only the most recent of5 resultswithin the time period is included. Anatomical Region Laterality Modality Spine Radiographic Kaycee ging 12/03/2021 9:27 AM HAND METHOD LASTING MACHINE OPERATOR Impressions 12/03/2021 9:30 AM HAND METHOD LASTING MACHINE OPERATOR IMPRESSION: Instrumented spinal fusion from C2 to C7, unchanged. This report was electronically signed by NEGRO KRISHNAN MD on 12/03/2021 9:30 AM . Narrative 12/03/2021 9:30 AM HAND METHOD LASTING MACHINE OPERATOR Exam: XR CERVICAL SPINE 2 VW History: S12.101A: Closed nondisplaced fracture of second cervical vertebra, unspecified fracture morphology, initial encounter Comparison: 10/22/2021 cervical spine radiographs. Outside cervical spine CT dated 09/11/2021. Findings: Instrumented spinal fusion is again demonstrated with posterior rods and screws extending from C2 to C7, an anterior plate and screws from C4 to C7, and a vertebral body prosthesis at C5. The instrumentation is intact. There is bony fusion in the lower cervical spine. There is no fracture or subluxation. Procedure Note Negro Krishnan MD - 12/03/2021 Exam: XR CERVICAL SPINE 2 VW History: S12.101A: Closed nondisplaced fracture of second cervical vertebra, unspecified fracture morphology, initial encounter Comparison: 10/22/2021 cervical spine radiographs. Outside cervical spine CT dated 09/11/2021. Findings: Instrumented spinal fusion is again demonstrated with posterior rods and screws extending from C2 to C7, an anterior plate and screws from C4 to C7, and a vertebral body prosthesis at C5. The instrumentation isintact. There is bony fusion in the lower cervical spine. There is no fractureor subluxation. IMPRESSION: Instrumented spinal fusion from C2 to C7, unchanged. This report was electronically signed by NEGRO KRISHNAN MD on12/03/2021 9:30 AM . Reji Pratt MD DIAGNOSTIC IMAGING O RDERABLES * (ABNORMAL) GLUCOSE - POINT OF CARE (09/12/2021 3:32 PM HAND METHOD LASTING MACHINE OPERATOR) Only the most recent of5 resultswithin the time period is included. Glucose WB/POC 257(H) 70 - 115 mg/dL 09/12/2021 3:36 PM HAND METHOD LASTING MACHINE OPERATOR [facility] Specimen Type Cap Fingerstick 2020 3:36 PM HAND METHOD LASTING MACHINE OPERATOR [facility] Blood BLOOD SPECIMEN / Unknown 09/12/2021 3:32 PM HAND METHOD LASTING MACHINE OPERATOR 09/12/2021 3:36 PM HAND METHOD LASTING MACHINE OPERATOR Provider Unknown LAB - POINT OF CARE ORDERABLES [place] [id number] [place] [address], [facility] [phone] * CT CHEST ABDOMEN PELVIS W CONT (09/12/2021 8:57 AM HAND METHOD LASTING MACHINE OPERATOR) Anatomical Region Laterality Modality Chest, Abdomen, Pelvis Computed Tomography 09/12/2021 9:06 AM HAND METHOD LASTING MACHINE OPERATOR Impressions 09/12/2021 11:19 AM HAND METHOD LASTING MACHINE OPERATOR Impression: 1.Minimal height loss of the T4 vertebral body, of uncertain acuity. Please see dedicated CT spinal exams for further spinal evaluation. 2.Simple fluid surrounding the right kidney is likely secondary to a simple cyst rupture. There is no contrast within the fluid on delayed imaging to suggest calyceal rupture. The fluid is low-density and does not represent blood products. 3.Marked prostamegaly with distention of the bladder. Consider correlation for possible chronic bladder outlet obstruction. Report drafted by Cedrick Rosario (resident) I, Dr. DIPTI FONTANEZ have personally reviewed and interpreted this examination/study. This report was electronically signed by DIPTI FONTANEZ on 09/12/2021 11:19 AM . Narrative 09/12/2021 11:19 AM HAND METHOD LASTING MACHINE OPERATOR Procedure Information DATE: 09/12/2021 8:58 AM EXAMINATION: Computed tomography (CT) of the chest, abdomen, and pelvis with contrast TECHNIQUE: CT of the chest, abdomen, and pelvis was performed after the uneventful administration of 100 mL of Isovue 370 intravenous contrast according to standard protocol. Clinical Information HISTORY: Fall, initial encounter COMPARISON: None. Findings Chest: Lower neck and axillae: Normal. Mediastinum and Brigitte: No enlarged lymph nodes are present. Heart and Pericardium: The cardiac chambers are normal in size. No pericardial fluid or thickening is present. Coronary artery calcifications are present. Lung Parenchyma, Airways, and Pleural Spaces: No pulmonary parenchymal or airway process is present. There is no pleural effusion or pneumothorax. Abdomen/pelvis: Hepatobiliary: Normal. Pancreas: Normal. Spleen: Normal. Kidneys: There is simple fluid surrounding the right kidney. There is a 1.5 cm exophytic right kidney cyst abutting the fluid. Delayed imaging was performed and there is no contrast within the perinephric fluid. No kidney laceration or hematoma is identified. Other than scattered areas of mild cortical thinning, the left kidney is unremarkable. Adrenals: Normal. Retroperitoneum: Normal. Peritoneum: Normal. Gastrointestinal: The stomach and visualized loops of bowel are unremarkable. Appendix: Normal. Pelvic Structures: The prostate is enlarged measuring 6.9 cm in transverse dimension. The bladder is distended. Vasculature: Scattered atherosclerotic vasculature changes. Bones: There is anterior cervical fusion of the lower cervical spine, only partially imaged on this study. There are minimal degenerative changes of the thoracic and lumbar spine. There is very mild height loss of the T4 superior endplate of uncertain acuity. Soft tissues: Normal. Procedure Note Dipti Fontanez MD - 09/12/2021 Procedure Information DATE: 09/12/2021 8:58 AM EXAMINATION: Computed tomography (CT) of the chest, abdomen, and pelvis with contrast TECHNIQUE: CT of the chest, abdomen, and pelvis was performed after the uneventful administration of 100 mL of Isovue 370 intravenous contrast according to standard protocol. Clinical Information HISTORY: Fall, initial encounter COMPARISON: None. Findings Chest: Lower neck and axillae: Normal. Mediastinum and Brigitte: No enlarged lymph nodes are present. Heart and Pericardium: The cardiac chambers are normal in size. No pericardial fluid or thickening is present. Coronary artery calcifications are present. Lung Parenchyma, Airways, and Pleural Spaces: No pulmonary parenchymal or airway process is present. There is no pleural effusion or pneumothorax. Abdomen/pelvis: Hepatobiliary: Normal. Pancreas: Normal. Spleen: Normal. Kidneys: There is simple fluid surrounding the right kidney. There is a 1.5 cm exophytic right kidney cyst abutting the fluid. Delayed imaging was performed and there is no contrast within the perinephric fluid. Nokidney laceration or hematoma is identified. Other than scattered areas of mild cortical thinning, the left kidney is unremarkable. Adrenals: Normal. Retroperitoneum: Normal. Peritoneum: Normal. Gastrointestinal: The stomach and visualized loops of bowel are unremarkable. Appendix: Normal. Pelvic Structures: The prostate is enlarged measuring 6.9 cm in transverse dimension. The bladder is distended. Vasculature: Scattered atherosclerotic vasculature changes. Bones: There is anterior cervical fusion of the lower cervical spine, only partially imaged on this study. There are minimal degenerative changesof the thoracic and lumbar spine. There is very mild height loss of the T4 superior endplate of uncertain acuity. Soft tissues: Normal. Impression: 1.Minimal height loss of the T4 vertebral body, of uncertain acuity. Please see dedicated CT spinal exams for further spinal evaluation. 2.Simple fluid surrounding the right kidney is likely secondary to a simple cyst rupture. There is no contrast within the fluid on delayed imaging to suggest calyceal rupture. The fluid is low-density and doesnot represent blood products. 3.Marked prostamegaly with distention of the bladder. Considercorrelation for possible chronic bladder outlet obstruction. Report drafted by Cedrick Rosario (resident) I, Dr. DIPTI FONTANEZ have personally reviewed and interpreted this examination/study. This report was electronically signed by DIPTI FNOTANEZ on 09/12/2021 11:19 AM . Bill Campos MD CT ORDERABLES * CT LUMBAR SPINE WO CONTRAST (09/12/2021 8:57 AM HAND METHOD LASTING MACHINE OPERATOR) Anatomical Region Laterality Modality Spine Computed Tomogra phy 09/12/2021 9:38 AM HAND METHOD LASTING MACHINE OPERATOR Impressions 09/12/2021 9:52 AM HAND METHOD LASTING MACHINE OPERATOR IMPRESSION: 1.Fracture of T4 superior endplate, possibly chronic. Clinical correlation is recommended. 2.No fracture of the lumbar spine. 3.Please refer to the separately dictated report of CT scan of the chest, abdomen and pelvis for intrathoracic and intra-abdominal findings. This report was electronically signed by MARLENA KEENE on 09/12/2021 9:52 AM . Narrative 09/12/2021 9:52 AM HAND METHOD LASTING MACHINE OPERATOR EXAMINATION: CT of the thoracic spine CT of the lumbar spine HISTORY: W19.XXXA: Fall, initial encounter TECHNIQUE: CT images of the thoracic and lumbar spines were reformatted from the concurrently obtained CT scan of the chest, abdomen and pelvis with intravenous contrast. COMPARISON: MRI lumbar spine from 06/27/2020 was reviewed. FINDINGS: There is no acute fracture. There is slight concavity of the right aspect of T4 superior endplate without discrete fracture line. This likely represents old fracture. The spinal curvature is maintained without subluxation. There are no aggressive appearing lytic or sclerotic lesions. Multilevel degenerative changes are seen. There is moderate spinal canal stenosis at L2-3 and L3-4. There is no significant foraminal stenosis. The soft tissues are grossly within normal limits. Procedure Note Marlena Keene MD - 09/12/2021 EXAMINATION: CT of the thoracic spine CT of the lumbar spine HISTORY: [id number].XXXA: Fall, initial encounter TECHNIQUE: CT images of the thoracic and lumbar spines were reformatted from the concurrently obtained CT scan of the chest, abdomen and pelvis with intravenous contrast. COMPARISON: MRI lumbar spine from 06/27/2020 was reviewed. FINDINGS: There is no acute fracture. There is slight concavity of the rightaspect of T4 superior endplate without discrete fracture line. This likely represents old fracture. The spinal curvature is maintained without subluxation. There are no aggressive appearing lytic or scleroticlesions. Multilevel degenerative changes are seen. There is moderate spinal canal stenosis at L2-3 and L3-4. There is no significant foraminal stenosis.The soft tissues are grossly within normal limits. IMPRESSION: 1.Fracture of T4 superior endplate, possibly chronic. Clinicalcorrelation is recommended. 2.No fracture of the lumbar spine. 3.Please refer to the separately dictated report of CT scan of thechest, abdomen and pelvis for intrathoracic and intra-abdominal findings. This report was electronically signed by MARLENA KEENE on 09/12/2021 9:52AM . Bill Campos MD CT ORDERABLES * CT THORACIC SPINE WO CONTRAST (09/12/2021 8:57 AM HAND METHOD LASTING MACHINE OPERATOR) Anatomical Region Laterality Modality Spine Computed Tomogra phy 09/12/2021 9:38 AM HAND METHOD LASTING MACHINE OPERATOR Impressions 09/12/2021 9:52 AM HAND METHOD LASTING MACHINE OPERATOR IMPRESSION: 1.Fracture of T4 superior endplate, possibly chronic. Clinical correlation is recommended. 2.No fracture of the lumbar spine. 3.Please refer to the separately dictated report of CT scan of the chest, abdomen and pelvis for intrathoracic and intra-abdominal findings. This report was electronically signed by MARLENA KEENE on 09/12/2021 9:52 AM . Narrative 09/12/2021 9:52 AM HAND METHOD LASTING MACHINE OPERATOR EXAMINATION: CT of the thoracic spine CT of the lumbar spine HISTORY: W19.XXXA: Fall, initial encounter TECHNIQUE: CT images of the thoracic and lumbar spines were reformatted from the concurrently obtained CT scan of the chest, abdomen and pelvis with intravenous contrast. COMPARISON: MRI lumbar spine from 06/27/2020 was reviewed. FINDINGS: There is no acute fracture. There is slight concavity of the right aspect of T4 superior endplate without discrete fracture line. This likely represents old fracture. The spinal curvature is maintained without subluxation. There are no aggressive appearing lytic or sclerotic lesions. Multilevel degenerative changes are seen. There is moderate spinal canal stenosis at L2-3 and L3-4. There is no significant foraminal stenosis. The soft tissues are grossly within normal limits. Procedure Note Marlena Keene MD - 09/12/2021 EXAMINATION: CT of the thoracic spine CT of the lumbar spine HISTORY: W19.XXXA: Fall, initial encounter TECHNIQUE: CT images of the thoracic and lumbar spines were reformatted from the concurrently obtained CT scan of the chest, abdomen and pelvis with intravenous contrast. COMPARISON: MRI lumbar spine from 06/27/2020 was reviewed. FINDINGS: There is no acute fracture. There is slight concavity of the rightaspect of T4 superior endplate without discrete fracture line. This likely represents old fracture. The spinal curvature is maintained without subluxation. There are no aggressive appearing lytic or scleroticlesions. Multilevel degenerative changes are seen. There is moderate spinal canal stenosis at L2-3 and L3-4. There is no significant foraminal stenosis.The soft tissues are grossly within normal limits. IMPRESSION: 1.Fracture of T4 superior endplate, possibly chronic. Clinicalcorrelation is recommended. 2.No fracture of the lumbar spine. 3.Please refer to the separately dictated report of CT scan of thechest, abdomen and pelvis for intrathoracic and intra-abdominal findings. This report was electronically signed by MARLENA KEENE on 09/12/2021 9:52AM . Bill Campos MD CT ORDERABLES * SARS-COV-2 (COVID-19)+INFLU A+B PCR RAPID (09/12/2021 4:27 AM HAND METHOD LASTING MACHINE OPERATOR) COVID-19 PCR Not detected Not detected 09/12/20 4:53 AM HAND METHOD LASTING MACHINE OPERATOR [facility] Influenza A Rapid COLLEEN Not Detected Not Detected 09/12/2021 4:53 AM HAND METHOD LASTING MACHINE OPERATOR [facility] Influenza B COLLEEN Rapid Not Detected Not Detected 09/12/2021 4:53 AM HAND METHOD LASTING MACHINE OPERATOR [facility] Microbiology SPECIMEN FROM NASOPHARYNGEAL STRUCTURE / Unknown Collection / Unknown 09/12/2021 4:27 AM HAND METHOD LASTING MACHINE OPERATOR 09/12/2021 4:29 AM HAND METHOD LASTING MACHINE OPERATOR Narrative [facility] - 09/12/2021 4:53 AM HAND METHOD LASTING MACHINE OPERATOR Influenza assay performed by Nucleic Acid Amplification. Results do not exclude the possibility of a mixed viral infection. NOTE: Detecting and identifying specific viral nucleic acids from individuals exhibiting signs and symptoms of respiratory infection aids in the diagnosis of respiratory infection, if used in conjunction with other clinical and laboratory findings. The results of this test should not be used as the sole basis for diagnosis, treatment, or patient management decisions. This nucleic acid amplification assay performance was validated by [facility]. This test has been authorized by the Food and Drug administration (FDA)under an Emergency Use Authorization (EUA). This test has been validated in accordance with the FDA's guidance document Policy for Diagnostic Testing in Laboratories Certified to perform High Complexity Testing under CLIA prior to Emergency Use Authorization for Coronavirus Disease-2019 during the Public Health Emergency issued on December 11, 2019. FDA independent review of this validation is pending. This test is only authorized for the duration of time the declaration that circumstances exist justifying the authorization of emergency use of in vitro diagnostic tests for detection of SARS-CoV-2 virus and/or diagnosis of COVID-19 infection under section 564(b)(1) of the Act, 21 U.S.C 360bbb-3 (b)(1), unless the authorization is terminated or revoked sooner. Fact Sheets for this EUA assay are available upon request. Oziel Phillip MD LAB - MICROBIO LOGY ORDERABLES [facility] [address] [place] [address], [facility] [phone] * PT-INR [facility] (09/12/2021 3:12 AM HAND METHOD LASTING MACHINE OPERATOR) Only the most recent of2 resultswithin the time period is included. PT 12.5 12.1 - 14.8 Seconds 09/12/2021 3:28 AM HAND METHOD LASTING MACHINE OPERATOR [facility] INR 0.9 See Comment 09/12/2021 3:28 AM [facility] Comment:The suggested therap eutic range for standard coumadin (warfarin) therapy is an INR of 2.0-3.0. For high-risk patients (Mechanical Mitral Valve Prosthesis, etc.), the suggested prophylactic therapeutic range is an INR of 2.5-3.5. Blood BLOOD SPECIMEN / Unknown Venipuncture / Unknown 09/12/2021 3:12 AM HAND METHOD LASTING MACHINE OPERATOR 09/12/2021 3:21 AM HAND METHOD LASTING MACHINE OPERATOR Oziel Phillip MD LAB - COAGULAT ION ORDERABLES [facility] [address] [place] [address], [facility] [phone] * (ABNORMAL) HEMOGLOBIN A1C (09/12/2021 3:12 AM HAND METHOD LASTING MACHINE OPERATOR) Hemoglobin A1c 7.0(H) 4.4 - 6.3 % 09/12/2021 11:20 AM [facility] Estimated Average Glucose 154 mg/dL 09/12/2021 11:20 AM [facility] Comment: HbA1c Interpretation: Treatment target values recommended by ADA and other clinical organizations should be used to evaluate metabolic control in patients. Treatment Target Values: Normal : < 5.7% Pre-diabetes: 5.7-6.4% Diabetes: Equal to or greater than 6.5% Reference: [place] [employer] Standards of Care in Diabetes -2014 In patients 70 years and older consider HbA1c target range of 7.0-7.5% Reference: Diabetes Mellitus in Older People: Position Statement on behalf of the International Association of Gerontology and Geriatrics (IAGG), the Diabetes Working Democrat for Older People (EDWPOP), and the International Task Force of Experts in Diabetes. Mickey Irvin, et al. J [place] [employer]. 2012 Test results diagnostic of diabetes should be repeated for confirmation. The Sebia Capillary 2 assay for the measurement of HbA1c is a National Glycohemoglobin Standardization Program (NGSP)certified method. Blood BLOOD SPECIMEN / Unknown Venipuncture / Unknown 09/12/2021 3:12 AM HAND METHOD LASTING MACHINE OPERATOR 09/12/2021 3:15 AM HAND METHOD LASTING MACHINE OPERATOR Oziel Phillip MD LAB - CHEMISTR Y ORDERABLES [facility] [address] [place] [address], [facility] [phone] * CBC W AUTO DIFFERENTIAL (09/12/2021 3:12 AM [facility]) Only the most recent of2 resultswithin the time period is included. WBC 9.1 3.5 - 10.5 10 3/uL 09/12/2021 3:19 AM [facility] RBC 5.48 4.30 - 5.70 10 6/uL 09/12/2021 3:19 AM [facility] Hemoglobin 17.3 12.0 - 17.6 g/dL 09/12/2021 3:19 AM [facility] Hematocrit 50.8 35.2 - 51.7 % 09/12/2021 3:19 AM [facility] MCV 92.7 80.7 - 98.3 fL 09/12/2021 3:19 AM [facility] MCH 31.6 26.7 - 34.0 pg 09/12/2021 3:19 AM [facility] MCHC 34.1 30.8 - 35.9 g/dL 09/12/2021 3:19 AM [facility] Platelet Count 213 150 - 400 10 3/uL 09/12/2021 3:19 AM [facility] RDW-SD 43.9 36.0 - 50.0 fL 09/12/2021 3:19 AM [facility] RDW-CV 12.9 11.2 - 14.8 % 09/12/2021 3:19 AM [facility] MPV 10.4 9.4 - 12.9 fL 09/12/2021 3:19 AM [facility] nRBC Absolute 0.00 0 10 3/uL 09/12/2021 3:19 AM [facility] nRBC Auto 0.0 0 /100 WBC 09/12/2021 3:19 AM [facility] Neutrophils % 54.6 35.0 - 70.0 % 09/12/2021 3:19 AM [facility] Lymphocytes % 33.6 20.0 - 43.0 % 09/12/2021 3:19 AM [facility] Monocytes % 8.8 5.0 - 13.0 % 09/12/2021 3:19 AM [facility] Eosinophils % 1.9 0.0 - 6.0 % 09/12/2021 3:19 AM [facility] Basophil % 0.8 0.0 - 2.0 % 09/12/2021 3:19 AM [facility] Neutrophils Absolute 5.0 1.6 - 7.0 10 3/uL 09/12/2021 3:19 AM [facility] Lymphocyte Absolute 3.1 1.1 - 3.9 10 3/uL 09/12/2021 3:19 AM [facility] Monocytes Absolute 0.80 0.26 - 1.07 10 3/uL 09/12/2021 3:19 AM [facility] Eosinophils Absolute 0.17 0.00 - 0.47 10 3/uL 09/12/2021 3:19 AM [facility] Basophils Absolute 0.07 0.00 - 0.08 10 3/uL 09/12/2021 3:19 AM [facility] Immature Granulocytes % 0.3 0.0 - 1.0 % 09/12/2021 3:19 AM [facility] Immature Granulocytes Absolute 0.03 09/12/2021 3:19 AM [facility] Blood BLOOD SPECIMEN / Unknown Venipuncture / Unknown 09/12/2021 3:12 AM HAND METHOD LASTING MACHINE OPERATOR 09/12/2021 3:15 AM [facility] Oziel Phillip MD LAB - HEMATOLO GY ORDERABLES [facility] [address] [place] [id number], [facility] [phone] * (ABNORMAL) BASIC METABOLIC PANEL (CALCIUM TOTAL) (09/12/2021 3:12 AM [facility]) BUN 17 7 - 26 mg/dL 09/12/2021 3:40 AM [facility] Creatinine 1.28(H) 0.71 - 1.16 mg/dL 09/12/2021 3:40 AM [facility] Sodium 144 136 - 145 mmol/L 09/12/2021 3:40 AM [facility] Potassium 4.1 3.5 - 4.5 mmol/L 09/12/2021 3:40 AM [facility] Chloride 107 98 - 107 mmol/L 09/12/2021 3:40 AM [facility] CO2 23 22 - 29 mmol/L 09/12/2021 3:40 AM [facility] Glucose 172(H) 70 - 115 mg/dL 09/12/2021 3:40 AM [facility] Calcium 9.7 8.4 - 10.2 mg/dL 09/12/2021 3:40 AM [facility] Anion Gap 18 8 - 18 09/12/2021 3:40 AM [facility] BUN/Creatinine Ratio 13 7 - 23 09/12/2021 3:40 AM [facility] Osmolality Calculated 304(H) 270 - 300 mOsm/kg 09/12/2021 3:40 AM [facility] eGFR by CKD-EPI 57(L) >=90 mL/min/1.7 3 m2 09/12/2021 3:40 AM [facility] Blood BLOOD SPECIMEN / Unknown Venipuncture / Unknown 09/12/2021 3:12 AM HAND METHOD LASTING MACHINE OPERATOR 09/12/2021 3:15 AM HAND METHOD LASTING MACHINE OPERATOR Oziel Phillip MD LAB - CHEMISTR Y ORDERABLES Performing Organization Address [facility] Co de Phone Number [address] [address], [facility] [phone] * PHOSPHORUS BLOOD (09/12/2021 3:12 AM HAND METHOD LASTING MACHINE OPERATOR) Phosphorus 3.9 2.8 - 5.1 mg/dL 09/12/2021 3:40 AM [facility] Blood BLOOD SPECIMEN / Unknown Venipuncture / Unknown 09/12/2021 3:12 AM HAND METHOD LASTING MACHINE OPERATOR 09/12/2021 3:15 AM HAND METHOD LASTING MACHINE OPERATOR Oziel Phillip MD LAB - CHEMISTR Y ORDERABLES [facility] [address] [place] [address], [facility] [phone] * HEPATIC FUNCTION PANEL (09/12/2021 3:12 AM HAND METHOD LASTING MACHINE OPERATOR) Protein Total 6.7 6.0 - 8.3 g/dL 5:46 AM [facility] Albumin 3.6 3.4 - 5.0 g/dL 09/12/2021 5:46 AM [facility] Bilirubin Total 0.5 0.2 - 1.2 mg/dL 10/2020 5:46 AM [facility] Bilirubin Conjugated 0.2 0.1 - 0.5 mg/dL 09/12/2021 5:46 AM [facility] Bilirubin Unconjugated 0.3 Unconjugated Bilirubin is a calculated value: Reference ranges have not been established. mg/dL 09/12/2021 5:46 AM [facility] Alkaline Phosphatase 50 40 - 150 U/L 09/12/2021 5:46 AM [facility] ALT 14 5 - 55 U/L 09/12/2021 5:46 AM [facility] AST 11 5 - 34 U/L 09/12/2021 5:46 AM [facility] Albumin/Globulin Ratio 1.2 1.1 - 2.3 09/12/2021 5:46 AM [facility] Blood BLOOD SPECIMEN / Unknown Venipuncture / Unknown 09/12/2021 3:12 AM HAND METHOD LASTING MACHINE OPERATOR 09/12/2021 3:15 AM [facility] Oziel Phillip MD LAB - CHEMISTR Y ORDERABLES [facility] [address] [place] [address], [facility] [phone] * MAGNESIUM BLOOD (09/12/2021 3:12 AM HAND METHOD LASTING MACHINE OPERATOR) Pathologist [facility] Magnesium 1.7 1.6 - 2.6 mg/dL 09/12/2021 3:40 AM [facility] Blood BLOOD SPECIMEN / Unknown Venipuncture / Unknown 09/12/2021 3:12 AM HAND METHOD LASTING MACHINE OPERATOR 09/12/2021 3:15 AM HAND METHOD LASTING MACHINE OPERATOR Oziel Phillip MD LAB - CHEMISTR Y ORDERABLES Performing Organization Address City/[facility]/ZIP Co de Phone Number [address] [address], [facility] [phone] * FOLATE (09/12/2021 3:12 AM HAND METHOD LASTING MACHINE OPERATOR) Folate 7.6 7.0 - 31.4 ng/mL 09/12/2021 6:18 AM HAND METHOD LASTING MACHINE OPERATOR [facility] Blood BLOOD SPECIMEN / Unknown Venipuncture / Unknown 09/12/2021 3:12 AM HAND METHOD LASTING MACHINE OPERATOR 09/12/2021 3:15 AM HAND METHOD LASTING MACHINE OPERATOR Oziel Phillip MD LAB - CHEMISTR Y ORDERABLES Performing Organization Address [facility] Co de Phone Number [address] [address], [place] [phone] * (ABNORMAL) VITAMIN B12 (09/12/2021 3:12 AM HAND METHOD LASTING MACHINE OPERATOR) Vitamin B12 192(L) 213 - 816 pg/mL 09/12/2021 6:18 AM HAND METHOD LASTING MACHINE OPERATOR [facility] Blood BLOOD SPECIMEN / Unknown Venipuncture / Unknown 09/12/2021 3:12 AM HAND METHOD LASTING MACHINE OPERATOR 09/12/2021 3:15 AM HAND METHOD LASTING MACHINE OPERATOR Oziel Phillip MD LAB - CHEMISTR Y ORDERABLES Performing Organization Address [facility] Co de Phone Number [address] [address], [place] [phone] * MRI CERVICAL SPINE WO CONTRAST (09/12/2021 12:45 AM HAND METHOD LASTING MACHINE OPERATOR) Anatomical Region Laterality Modality Pelvis Magnetic Resonan ce 09/12/2021 9:42 AM HAND METHOD LASTING MACHINE OPERATOR Impressions 09/12/2021 10:11 AM HAND METHOD LASTING MACHINE OPERATOR IMPRESSION: 1. Prior anterior and posterior extensive surgical cervical spine fusion as described above. 2. Acute/recent type III fracture involving the C2 vertebra associated with mild prevertebral space, anterior epidural space edema/fluid collections as well as posterior interspinous and posterior paraspinal soft tissue edema without convincing evidence for significant ligamentous disruption involving the ALL, PLL and ligamentum flavum. 3. Normal cervical spinal cord. 4. 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 This report was electronically signed by DELICIA CERNA on 09/12/2021 10:11 AM . Narrative 09/12/2021 10:11 AM HAND METHOD LASTING MACHINE OPERATOR EXAM: MR SPINE CERVICAL WITHOUT CONTRAST CLINICAL INDICATION: [id number]: Fall, initial encounter TECHNIQUE: Sagittal T2, STIR, GRE and T1 weighted images along with axial and coronal T2 weighted images of the cervical spine were obtained without contrast. COMPARISON: 11/12/2004 cervical spine MRI and 09/11/[address] from [facility] FINDINGS: Again noted are findings of a fracture involving C2 vertebra at the junction of the odontoid process and the vertebral body. Patient status post prior C4-C7 ACDF with corpectomy involving the anterior aspect of the C5 vertebral body with strut metallic construct. Chronic fused anterior syndesmophytes are so present at C2-C3 level. Posterior surgical fusion with articular screws and interconnecting rods from C2 through C7 level is also noted. C1-C2: Chronic degenerative changes are present. Small acute anterior epidural STIR hyperintense fluid collection is present. Prevertebral space STIR hyperintensity edema/fluid collection is also present especially at C2-C3 level. STIR hyperintense signals are present within the interspinous space at C1-C2 level with extension into adjacent posterior paraspinal soft tissues. No definite evidence of acute ligamentous disruption involving the anterior longitudinal ligament, posterior lateral ligament and ligamentum flavum at C1-C2 level. 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 C2-C3: No significant central spinal or foraminal stenosis. C3-C4: No significant central spinal stenosis. Mild right foraminal stenosis. C4-C5: No significant central spinal stenosis. Moderate right and mild left foraminal stenoses. C5-C6: No significant central spinal stenosis. Bilateral mild foraminal stenosis. C6-C7: No significant central spinal stenosis. Moderate right foraminal stenosis. C7-T1: Bilateral facet arthropathy. No significant central spinal or foraminal stenosis. Grade 1 anterolisthesis of C7 on T1 vertebra with chronic degenerative disc and endplate disease with a moderate disc height loss. T1-T2: Chronic disc and endplate degenerative disease with a moderate disc height loss with diffuse anterior and posterior disc bulges and reactive bone marrow signal changes. Minimal anterolisthesis of T1 on T2 vertebra. No significant central spinal or foraminal stenosis. Cervical spinal cord is normal without definite intramedullary signal abnormality. Procedure Note Delicia Cerna MD - 09/12/2021 EXAM: MR SPINE CERVICAL WITHOUT CONTRAST CLINICAL INDICATION: [id number].XXXA: Fall, initial encounter TECHNIQUE: Sagittal T2, STIR, GRE and T1 weighted images along withaxial and coronal T2 weighted images of the cervical spine were obtainedwithout contrast. COMPARISON: 11/12/2004 cervical spine MRI and 09/11/[address] from [facility] FINDINGS: Again noted are findings of a fracture involving C2 vertebra at the junction of the odontoid process and the vertebral body. Patient status post prior C4-C7 ACDF with corpectomy involving the anterior aspect ofthe C5 vertebral body with strut metallic construct. Chronic fused anterior syndesmophytes are so present at C2-C3 level. Posterior surgical fusion with articular screws and interconnecting rods from C2 through C7 levelis also noted. C1-C2: Chronic degenerative changes are present. Small acute anterior epidural STIR hyperintense fluid collection is present. Prevertebralspace STIR hyperintensity edema/fluid collection is also present especially at C2-C3 level. STIR hyperintense signals are present within theinterspinous space at C1-C2 level with extension into adjacent posterior paraspinal soft tissues. No definite evidence of acute ligamentous disruption involving the anterior longitudinal ligament, posterior lateral ligament andligamentum flavum at C1-C2 level. 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 C2-C3: No significant central spinal or foraminal stenosis. C3-C4: No significant central spinal stenosis. Mild right foraminal stenosis. C4-C5: No significant central spinal stenosis. Moderate right and mild left foraminal stenoses. C5-C6: No significant central spinal stenosis. Bilateral mild foraminal stenosis. C6-C7: No significant central spinal stenosis. Moderate right foraminal stenosis. C7-T1: Bilateral facet arthropathy. No significant central spinal or foraminal stenosis. Grade 1 anterolisthesis of C7 on T1 vertebra with chronic degenerative disc and endplate disease with a moderate discheight loss. T1-T2: Chronic disc and endplate degenerative disease with a moderatedisc height loss with diffuse anterior and posterior disc bulges and reactive bone marrow signal changes. Minimal anterolisthesis of T1 on [id number]. No significant central spinal or foraminal stenosis. Cervical spinal cord is normal without definite intramedullary signal abnormality. IMPRESSION: 1. Prior anterior and posterior extensive surgical cervical spine fusion as described above. 2. Acute/recent type III fracture involving the C2 vertebra associated with mild prevertebral space, anterior epidural space edema/fluid collections as well as posterior interspinous and posterior paraspinal soft tissue edema without convincing evidence for significantligamentous disruption involving the ALL, PLL and ligamentum flavum. 3. Normal cervical spinal cord. 4. 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 This report was electronically signed by DELICIA CERNA on 09/12/2021 10:11AM . Alon Weston MD MR ORDERABLES * BLOOD TYPE VERIFICATION (09/11/2021 10:03 PM HAND METHOD LASTING MACHINE OPERATOR) ABO Rh A POS 09/11/2021 10:46 PM HAND METHOD LASTING MACHINE OPERATOR [facility] BLOOD B[facility] LAB Blood Bank BLOOD SPECIMEN / Unknown Venipuncture / Unknown 09/11/2021 10:03 PM HAND METHOD LASTING MACHINE OPERATOR 09/11/2021 10:09 PM HAND METHOD LASTING MACHINE OPERATOR Alon Weston MD LAB - BLOOD BANK ORD ERABLES [facility] BLOOD BANK LAB [address] [place] [address], [facility] [phone] * TYPE + SCREEN PANEL (09/11/2021 9:35 PM HAND METHOD LASTING MACHINE OPERATOR) [facility] Antibody Screen NEG 10:32 PM [facility] LAB ABO Rh A POS 09/11/2021 10:32 PM [facility] LAB Blood Bank BLOOD SPECIMEN / Unknown Venipuncture / Unknown 09/11/2021 9:35 PM HAND METHOD LASTING MACHINE OPERATOR 09/11/2021 9:40 PM HAND METHOD LASTING MACHINE OPERATOR Alon Weston MD LAB - BLOOD BANK ORD ERABLES [facility] BLOOD [facility] LAB [address] [place] [address], [facility] [phone] * (ABNORMAL) COMPREHENSIVE METABOLIC PANEL (09/11/2021 9:34 PM HAND METHOD LASTING MACHINE OPERATOR) [facility] BUN 15 7 - 26 mg/dL 09/11/2021 10:01 PM [facility] Creatinine 1.32(H) 0.71 - 1.16 mg/dL 09/11/2021 10:01 PM [facility] Sodium 144 136 - 145 mmol/L 09/11/2021 10:01 PM [facility] Potassium 4.4 3.5 - 4.5 mmol/L 09/11/2021 10:01 PM [facility] Chloride 105 98 - 107 mmol/L 09/11/2021 10:01 PM [facility] CO2 22 22 - 29 mmol/L 09/11/2021 10:01 PM [facility] Glucose 127(H) 70 - 115 mg/dL 09/11/2021 10:01 PM [facility] Calcium 10.2 8.4 - 10.2 mg/dL 09/11/2021 10:01 PM [facility] Protein Total 7.5 6.0 - 8.3 g/dL 09/11/2021 10:01 PM [facility] Albumin 4.0 3.4 - 5.0 g/dL 09/11/2021 10:01 PM [facility] Bilirubin Total 0.5 0.2 - 1.2 mg/dL 09/11/2021 10:01 PM [facility] Alkaline Phosphatase 57 40 - 150 U/L 09/11/2021 10:01 PM [facility] ALT 15 5 - 55 U/L 09/11/2021 10:01 PM [facility] AST 13 5 - 34 U/L 09/11/2021 10:01 PM [facility] Anion Gap 21(H) 8 - 18 09/11/2021 10:01 PM [facility] BUN/Creatinine Ratio 11 7 - 23 09/11/2021 10:01 PM [facility] Osmolality Calculated 300 270 - 300 mOsm/kg 09/11/2021 10:01 PM [facility] Albumin/Globulin Ratio 1.1 1.1 - 2.3 09/11/2021 10:01 PM [facility] eGFR by CKD-EPI 55(L) >=90 mL/min/1.7 3 m2 09/11/2021 10:01 PM [facility] Blood BLOOD SPECIMEN / Unknown Venipuncture / Unknown 09/11/2021 9:34 PM HAND METHOD LASTING MACHINE OPERATOR 09/11/2021 9:38 PM HAND METHOD LASTING MACHINE OPERATOR Alon Weston MD LAB - CHEMISTRY KAROLINA MCWILLIAMS [facility] Organization Address City/State/ZIP Co de Phone Number [facility] [address] [place] [phone], [facility] [phone] * XR PELVIS W BILAT HIP 2VW (08/29/2020 3:22 PM HAND METHOD LASTING MACHINE OPERATOR) Anatomical Region Laterality Modality Pelvis, Lower Extremity Radiogra phic Imaging 08/29/2020 3:50 PM HAND METHOD LASTING MACHINE OPERATOR Impressions 08/29/2020 3:51 PM HAND METHOD LASTING MACHINE OPERATOR Normal hips and pelvis *Reading Radiologist: Michell Silva on 08/29/2020 at 3:51 PM Narrative 08/29/2020 3:51 PM HAND METHOD LASTING MACHINE OPERATOR Pelvis with 2 views each hip DATE: 08/29/2020. INDICATION: Bilateral hip pain. FINDINGS: The femoral acetabular joints are symmetric and normal. There is no fracture, dislocation or avascular necrosis. The SI joints and pubic symphysis are unremarkable. Procedure Note Michell Silva MD - 08/29/2020 Pelvis with 2 views each hip DATE: 08/29/2020. INDICATION: Bilateral hip pain. FINDINGS: The femoral acetabular joints are symmetric and normal. There is no fracture, dislocation or avascular necrosis. The SI joints and pubic symphysis are unremarkable. IMPRESSION Normal hips and pelvis *Reading Radiologist: Michell Silva on 08/29/2020 at 3:51 PM Lionel Live MD DIAGNOSTIC IMAGING O RDERABLES * PAIN MANAGEMENT PROCEDURE TIME (08/29/2020 2:37 PM HAND METHOD LASTING MACHINE OPERATOR) Anatomical Region Laterality Modality Radio Fluoroscop y Narrative 08/29/2020 2:37 PM HAND METHOD LASTING MACHINE OPERATOR Lionel Live MD 08/29/2020 2:37 PM Transforaminal Lumbar Epidural and Nerve Root Steroid Injection on Bilateral S1 Level(s) Dx: M54.16 - Lumbar Radiculopathy Consent: The patient was identified in the holding area and the operative permit was explained and signed. I have discussed with the patient the risks, benefits, side effects and complications of a fluoroscopically guided transforaminal lumbar nerve root steroid injection. I have answered the patient's questions regarding the procedure and have given the patient the opportunity to refuse the procedure. I also have discussed alternative methods of treatment. The patient stated understanding of the procedure and wished to proceed with a fluoroscopically guided transforaminal lumbar nerve root steroid injection. Monitoring: The patient was taken to the fluoroscopic suite and placed on a C-arm table in the prone position. Noninvasive blood pressure, pulse oximetry, and an EKG tracing were used to monitor the patient continuously throughout the procedure. A nurse was in attendance for the duration of the procedure to carefully monitor the patient. Please refer to the nursing record for vital sign documentation and for any doses of sedatives and medications. I was present and gave the order for any medications given to the patient. Preparation: Chloroprep preparation was performed twice, then sterile drapes were applied to the lower region of the back. Procedure: The procedure was performed at the above mentioned level(s).The C-arm was positioned in the oblique view until the pedicle and articulating processes were clearly visible. Using fluoroscopic guidance, a 22 gauge 3.5 inch needle was placed on the six o'clock position of the pedicle. The needle was then slowly walked off the lamina into the nerve root foramen. A lateral flouroscopic projection showed the needle tip entering the superior posterior aspect of the respective intervertebral foramen. Using AP fluoroscopic projection, 0.4 ml of Omnipaque (240mg/ml) was injected through the needle and a neurogram was produced. There was clear dye spread through the nerve root sheath and into the epidural space. There was no cerebrospinal fluid or blood aspirated from the needle. A preservative free solution of 10 mg decadron and 2 ml of 0.5% Lidocaine was injected at each level injected. There were no signs or symptoms of intrathecal or intravascular injection. The needle was removed intact. The patient tolerated the procedure well and there were no complications. Recovery: The patient was taken to the recovery area where they remained in stable condition. Postprocedure instructions were given to the patient and a follow up appointment was confirmed. The patient was also discharged with information on how to reach the clinic or insurance verification representative physician at anytime for questions or complaints. Lionel Live MD DIAGNOSTIC IMAGING O RDERABLES * IMAGING RADIOLOGY XRAY RESULTS ORDER (07/01/2020) Anatomical Region Laterality Modality Other Historical Provider IMAGING * XR LUMBAR SPINE 2 OR 3VW (06/27/2020 11:12 AM CDT) Anatomical Region Laterality Modality Spine Radiographic Kaycee ging 06/27/2020 12:5 6 PM CDT Impressions 06/27/2020 12:57 PM CDT Impression: Mild L4-S1 degenerative disc disease and lower lumbar facet osteoarthropathy. This report was electronically signed by OTONIEL KINSEY on 06/27/2020 12:57 PM . Narrative 06/27/2020 12:57 PM CDT Examination: XR LUMBAR SPINE 2 OR 3VW History:Low back pain Findings: No comparisons are available. Alignment of the lumbar spine is normal. Vertebral body heights are normal without compression fractures. There is mild L4-S1 degenerative disc disease. There is multilevel lower lumbar facet osteoarthropathy. Procedure Note Otoniel Kinsey MD - 06/27/2020 Examination: XR LUMBAR SPINE 2 OR 3VW History:Low back pain Findings: No comparisons are available. Alignment of the lumbar spine is normal. Vertebral body heights arenormal without compression fractures. There is mild L4-S1 degenerative disc disease. There is multilevel lower lumbar facet osteoarthropathy. Impression: Mild L4-S1 degenerative disc disease and lower lumbar facet osteoarthropathy. This report was electronically signed by OTONIEL KINSEY on 06/27/2020 12:57 PM . Linette Morrow DIRECTOR IMMUNOLOGY-TOOL AND PRODUCTION PLANNER DIAGNOSTIC IMAG ING ORDERABLES * LAB MICROBIOLOGY - HPF HISTORICAL (09/10/2011 6:11 AM HAND METHOD LASTING MACHINE OPERATOR) 09/10/2011 6:11 AM HAND METHOD LASTING MACHINE OPERATOR Narrative [facility] - 09/10/2011 6:11 AM HAND METHOD LASTING MACHINE OPERATOR Leonard Lucas MD LAB - MICROBIOLOGY O RDERABLES [facility] Care Teams Dress Designer Relationship Specialty Start Date End Date [facility] [address] [place] [address] PCP - General 06/21/20
--- OUTSIDE RECORDS SUMMARY | 2024-12-03 05:49 | XMS_ITS | Referral Summary ---
Author Organization [facility] [employer] Address [address] [place] [address] Care Team Providers Care Inspector Plug Seam Name Role Phone [address] Primary Care Prov ider Source Comments [facility],non-owned Affiliates and Associated Physician Practices is amultiple site organization consisting of ambulatory clinics and hospital sitesin [place], [place], [place] and [place]. This disclosure is being madepursuant to the Care Everywhere program and may not contain all information available regarding this patient. Last updated 18.[facility] [employer] Allergies Active Allergy Reactions Criticality Noted Date Comments Hydrocodone-Acetaminophen Rash Medium 06/27/2020 Penicillins Other 06/27/2020 Pt unsure of reaction/childhood reaction Medications * Be aware that medications may not be up to date on this document. Alwaysverify current medications with the patient. Medication Sig Dispensed Refills Start Date End Date Status zolpidem (AMBIEN) 10 MG tablet 04/12/2020 Active JANUMET XR 50-1000 MG tablet 06/19/2020 Active JANUVIA 50 MG tablet 05/01/2020 Acti ve pravastatin (PRAVACHOL) 40 MG tablet 06/19/2020 Active pantoprazole EC (PROTONIX) 40 MG tablet 06/08/2020 Active lisinopril (PRINIVIL; ZESTRIL) 40 MG tablet 05/01/2020 Active LANTUS vial 06/08/2020 Active GLUCAGON EMERGENCY injection 06/21/2020 Active gabapentin (NEURONTIN) 600 MG tablet 04/10/2020 Active ezetimibe (ZETIA) 10 MG tablet 05/15/2020 Active Vitamin D3, cholecalciferol, 50 MCG (1999 UT) tablet 06/19/2020 Active ASPIRIN LOW DOSE 81 MG tablet 06/19/2020 Active amLODIPine (NORVASC) 10 MG tablet 05/01/2020 Active carvedilol (COREG) 3.125 MG tablet 05/15/2020 Active cyclobenzaprine (FLEXERIL) 5 MG tablet 03/08/2020 Active JARDIANCE 10 MG tablet 06/08/2020 Ac tive Active Problems Problem Noted Date Diagnosed Date [...] radiculopathy 08/07/2020 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 Immunizations Name Administration Dates Next Due PNEUMOCOCCAL PPSV23 09/25/2020,07/13/2008 TDAP (7yrs+) 2013 Td (Adult), 2 Lf Tetanus Toxoid, Adsorbed, Pf ZOSTER VACCINE, LIVE 2013 Zoster Hzv Vacc Recombinant Inj Im 12/04/2020, Social History Tobacco Use Types Packs/Day Years Used Date Smoking Tobacco: Every Day Cigarettes Smokeless Tobacco: Never Tobacco Cessation:Ready to Q uit: No; Counseling Given: Yes Alcohol Use Standard Drinks/Week Comments Yes 0 (1 standard drink = 0.6 oz pure alcohol) 20 shots of whiskey every Eros Sex and Gender Information Value Date Recorded Sex Assigned at Not on file Gender Identity Not on file Sexual Orientation Not on file Last Filed Vital Signs Vital Sign Reading Time Taken Comments Blood Pressure 125/64 09/12/2021 3:39 PM CLIENT DEVELOPMENT DIRECTOR Pulse 88 09/12/2021 3:39 PM CLIENT DEVELOPMENT DIRECTOR Temperature 37.4 C (99.3 F) 09/11/2021 9:43 PM CLIENT DEVELOPMENT DIRECTOR Respiratory Rate 12 09/12/2021 3:39 PM CLIENT DEVELOPMENT DIRECTOR Oxygen Saturation 95% 09/12/2021 3:39 PM CLIENT DEVELOPMENT DIRECTOR Inhaled Oxygen Concentration - - Weight 92.4 kg (203 lb 12.8 oz) 12/03/2021 9:02 AM CLIENT DEVELOPMENT DIRECTOR Height 175.3 cm (5' 9 ) 12/03/2021 9:02 AM CLIENT DEVELOPMENT DIRECTOR Body Mass Index 30.1 12/03/2021 9:02 AM CLIENT DEVELOPMENT DIRECTOR Plan of Treatment Not on file Procedures Procedure Name Priority Date/Time Associated Diagnosis Comments BASIC METABOLIC PANEL (CALCIUM TOTAL) STAT 09/12/2021 3:12 AM CLIENT DEVELOPMENT DIRECTOR HEMOGLOBIN A1C ENA 09/12/2021 3:12 AM CLIENT DEVELOPMENT DIRECTOR from Last 3 Months or Most Recently Relevant to Health Maintenance Results * (ABNORMAL) HEMOGLOBIN A1C (09/12/2021 3:12 AM CLIENT DEVELOPMENT DIRECTOR) Hemoglobin A1c 7.0(H) 4.4 - 6.3 % 09/12/2021 11:20 AM [facility] Estimated Average Glucose 154 mg/dL 09/12/2021 11:20 AM [facility] Comment: HbA1c Interpretation: Treatment target values recommended by ADA and other clinical organizations should be used to evaluate metabolic control in patients. Treatment Target Values: Normal : < 5.7% Pre-diabetes: 5.7-6.4% Diabetes: Equal to or greater than 6.5% Reference: [place] Diabetes Association Standards of Care in Diabetes -2014 In patients 70 years and older consider HbA1c target range of 7.0-7.5% Reference: Diabetes Mellitus in Older People: Position Statement on behalf of the International Association of Gerontology and Geriatrics (IAGG), the Diabetes Working Republican for Older People (EDWPOP), and the International Task Force of Experts in Diabetes. Mickey Irvin et al. J [place] Medical Directors Association. 2012 Test results diagnostic of diabetes should be repeated for confirmation. The Sebia Capillary 2 assay for the measurement of HbA1c is a National Glycohemoglobin Standardization Program (NGSP)certified method. Blood BLOOD SPECIMEN / Unknown Venipuncture / Unknown 09/12/2021 3:12 AM CLIENT DEVELOPMENT DIRECTOR 09/12/2021 3:15 AM CLIENT DEVELOPMENT DIRECTOR Oizel Phillip MD LAB - CHEMISTR Y ORDERABLES [facility] [address] [place] [address], [facility] [phone] * (ABNORMAL) BASIC METABOLIC PANEL (CALCIUM TOTAL) (09/12/2021 3:12 AM [facility]) BUN 17 7 - 26 mg/dL 09/12/2021 3:40 AM [facility] Creatinine 1.28(H) 0.71 - 1.16 mg/dL 09/12/2021 3:40 AM [facility] Sodium 144 136 - 145 mmol/L 09/12/2021 3:40 AM [facility] Potassium 4.1 3.5 - 4.5 mmol/L 09/12/2021 3:40 AM [facility] Chloride 107 98 - 107 mmol/L 09/12/2021 3:40 AM [facility] CO2 23 22 - 29 mmol/L 09/12/2021 3:40 AM [facility] Glucose 172(H) 70 - 115 mg/dL 09/12/2021 3:40 AM [facility] Calcium 9.7 8.4 - 10.2 mg/dL 09/12/2021 3:40 AM [facility] Anion Gap 18 8 - 18 09/12/2021 3:40 AM [facility] BUN/Creatinine Ratio 13 7 - 23 09/12/2021 3:40 AM [facility] Osmolality Calculated 304(H) 270 - 300 mOsm/kg 09/12/2021 3:40 AM [facility] eGFR by CKD-EPI 57(L) >=90 mL/min/1.7 3 m2 09/12/2021 3:40 AM [facility] Blood BLOOD SPECIMEN / Unknown Venipuncture / Unknown 09/12/2021 3:12 AM CLIENT DEVELOPMENT DIRECTOR 09/12/2021 3:15 AM CLIENT DEVELOPMENT DIRECTOR Oziel Phillip MD LAB - CHEMISTR Y ORDERABLES [facility] [address] [place] [address], [facility] [phone] from Last 3 Months or Most Recently Relevant to Health Maintenance Advance Directives * Full Code (Latest Code Status on File) Date Activated Date Inactivated Comments 09/12/2021 1:49 AM 09/12/2021 6:30 PM Care Teams Inspector Plug Seam Relationship Specialty Start Date End Date [facility] [address] [place] [address] PCP - General 06/21/20
--- OUTSIDE RECORDS SUMMARY | 2024-12-03 05:49 | XMS_ITS | Clinical Summary ---
Author Organization [facility] Address Formerly [facility] [place] [address] Care Team Providers Care Manager Gallery Name Role Phone James Nguyen MD Primary Care Provider [phone] Allergies Active Allergy Reactions Criticality Noted Date Comments Hydrocodone-Acetaminoph en Rash Medium 06/27/2020 Penicillins Other (see comment),Unknown 12/17/2003 Pt unsure of reaction/childhood reaction Medications TRULICITY 1.5 MG/0.5ML injection Inject 1.5 mg into the skin. 4 Active ezetimibe (ZETIA) 10 MG tablet Take or use exactly as directed.Obta in advice for OTCs.Check with your doctor before becoming . 4 02/19/20 25 Active JARDIANCE 25 MG tablet Check with your doctor before becoming . 4 01/13/20 25 Active gabapentin (NEURONTIN) 600 MG tablet 1 tablet (600 mg total). 4 Active GLUCAGON EMERGENCY 1 MG injection 3 Active LANTUS SOLOSTAR 100 UNIT/ML injection (PEN) Do not drink alcohol.Take or use exactly as directed.refr igerate 3 04/06/20 25 Active B-D INS SYR ULTRAFINE 1CC/30G 30G X 1/2 1 ML Misc 4 Active LIDODERM 5 % 1 patch(es), Topical, Daily, Leave on for up to 12 hours within a 24 hour period (12 hours on, 12 hours off), # 90 patch(es), 3 total refill(s), Maintenance, 1 patch(es) Topical Daily,Instr:L eave on for up to 12 hours within a 24 hour period (12 hours on, 12 hours off), Pharmacy: [facility] 3 Active lisinopril (PRINIVIL) 40 MG tablet Take 1 tablet (40 mg total) by mouth daily. 4 02/19/20 25 Active metFORMIN ER (GLUCOPHAGE-XR) 500 MG 24 hr tablet 1 tablet (500 mg total). 4 Active pantoprazole EC (PROTONIX) 40 MG tablet Take 1 tablet (40 mg total) by mouth. 4 Active pravastatin (PRAVACHOL) 40 MG tablet 1 tablet (40 mg total). 4 12/24/19 25 Active tadalafil (CIALIS) 20 MG tablet 1 tablet (20 mg total). 4 Active traZODone (DESYREL) 50 MG tablet 1 tablet (50 mg total). 4 01/13/20 25 Active diclofenac sodium (VOLTAREN) 1 % gel Avoid exposure to sun.For external use.Do not take if . 4 01/13/20 25 Active cyclobenzaprine (FLEXERIL) 5 MG tablet 1 tablet (5 mg total). 4 01/08/20 25 Active aspirin EC (ECOTRIN) 81 MG tablet Take 1 tablet (81 mg total) by mouth daily. 4 11/03/19 25 Social History Tobacco Use Types Packs/Day Years Used Date Smoking Tobacco: Every Day Cigarettes Smokeless Tobacco: Current Tobacco Cessation:Ready to Q uit: No; Counseling Given: Yes Alcohol Use Standard Drinks/Week Comments Yes 0 (1 standard drink = 0.6 oz pur e alcohol) 1 day a week PHQ-2 Answer Date Recorded Patient Health Questionnaire-2 Score 0 06/08/2024 Sex and Gender Information Value Date Recorded Sex Assigned at Not on file Legal Sex Male 5:45 PM CDT Gender Identity Not on file Sexual Orientation Not on file Last Filed Vital Signs Vital Sign Reading Time Taken Comments Blood Pressure 116/76 06/08/2024 9:39 AM CDT Pulse 76 06/08/2024 9:39 AM CDT Temperature 36.1 C (97 F) 06/08/2024 9:39 AM CDT Respiratory Rate - - Oxygen Saturation 100% 06/08/2024 9:39 AM CDT Inhaled Oxygen Concentration - - Weight 83.2 kg (183 lb 6.4 oz) 06/08/2024 9:39 A M CDT Height 175.3 cm (5' 9 ) 06/08/2024 9:39 AM CDT p t states Body Mass Index 27.08 06/08/2024 9:39 AM CDT Plan of Treatment Upcoming Encounters Date Type Department Care Team (Late st Contact Info) Description 12/09/2024 11:40 AM METAPHYSICS TEACHER Office Visit [facility] - [place] [address] [place] [address] Yann Zapien PA-C [address] [place] [address] Health Maintenance Due Date Last Done Comments Colorectal Cancer Screening Colonoscopy (10 Years) 1953 Hepatitis C 1971 Annual Medicare Wellness Visit 2018 Pneumococcal Vaccine: 65+ Years (2 of 2 - PCV) 09/25/2021 09/25/2020, 07/13/2008 DTaP, Tdap and Td Vaccines (2 - Td or Tdap) 2023 2013, 10/06/2004 COVID-19 Vaccine ( season) 2024 11/12/2023, 08/04/2022, 07/16/2021, Additional history exists Influenza Adult (#1) 2024 PHQ-2 (Physician [place]) 10/13/2024 06/08/2024 RSV Immunization or 60+ Years (1 - 1-dose 75+ series) 2028 Zoster Vaccines Completed 12/04/2020, 09/12, 2013 AAA SCREENING Completed 09/12/2021 Meningococcal B Vaccine Aged Out No l onger eligible based on patient's age to complete this topic Meningococcal Vaccine Aged Out No henry brisa eligible based on patient's age to complete this topic RSV Immunizations Under 20 Months Aged Out No longer eligible based on patient's age to complete this topic Insurance MEDICARE [facility] Care Teams Manager Gallery Relationship Specialty Start Date End Date James Nguyen MD [address] [place] [address] PCP - General 09/04/15
--- OUTSIDE RECORDS SUMMARY | 2024-12-03 05:49 | XMS_ITS | Encounter Summary ---
Author Organization [facility] Health Address [address] [place] [address] Care Team Providers Care Fractionation Plant Supervisor Name Role Phone [address] Primary Care Prov ider Encounter Details Date Type Department Care Team (Late st Contact Info) Description 08/07/2020 [facility] Outpatient Visit [facility] [address] [place] [address] Lionel Live MD [address] [place] [address] Social History Tobacco Use Types Packs/Day Years Used Date Smoking Tobacco: Every Day Cigarettes Smokeless Tobacco: Never Alcohol Use Standard Drinks/Week Comments Yes 0 (1 standard drink = 0.6 oz pur e alcohol) Sex and Gender Information Value Date Recorded Sex Assigned at Not on file Gender Identity Not on file Sexual Orientation Not on file documented as of this encounter Plan of Treatment Not on file documented as of this encounter Visit Diagnoses Not on filedocumented in this encounter Care Teams Fractionation Plant Supervisor Relationship Specialty Start Date End Date [address] [place] [address] PCP - General 06/21/20 documented as of this encounter
--- OUTSIDE RECORDS SUMMARY | 2024-12-03 05:49 | XMS_ITS | Clinical Summary ---
Author Organization [facility] [employer] Address [address] [place] [address] Care Team Providers Care Canning Machine Operator Name Role Phone [address] Primary Care Prov ider Source Comments [facility],non-owned Affiliates and Associated Physician Practices is amultiple site organization consisting of ambulatory clinics and hospital sitesin [place], [place], [place] and [place]. This disclosure is being madepursuant to the Care Everywhere program and may not contain all information available regarding this patient. Last updated 18.[facility] [employer] Allergies Active Allergy Reactions Criticality Noted Date [...] Zoster Hzv Vacc Recombinant Inj Im 12/04/2020, Family History Medical History Relation Name Comments Cancer - Prostate Brother 1 Cancer - Liver Brother 2 Cancer - Lung Brother 2 Cancer - Prostate Father Cancer - Breast Mother Relation Name Status Comments Brother 1 Brother 2 Father Mother Social History Tobacco Use Types Packs/Day Years [...] Comments Blood Pressure 125/64 09/12/2021 3:39 PM BUFFING MACHINE OPERATOR SEMIAUTOMATIC Pulse 88 09/12/2021 3:39 PM BUFFING MACHINE OPERATOR SEMIAUTOMATIC Temperature 37.4 C (99.3 F) 09/11/2021 9:43 PM BUFFING MACHINE OPERATOR SEMIAUTOMATIC Respiratory Rate 12 09/12/2021 3:39 PM BUFFING MACHINE OPERATOR SEMIAUTOMATIC Oxygen Saturation 95% 09/12/2021 3:39 PM BUFFING MACHINE OPERATOR SEMIAUTOMATIC Inhaled Oxygen Concentration - - Weight 92.4 kg (203 lb 12.8 oz) 12/03/2021 9:02 AM BUFFING MACHINE OPERATOR SEMIAUTOMATIC Height 175.3 cm (5' 9 ) 12/03/2021 9:02 AM BUFFING MACHINE OPERATOR SEMIAUTOMATIC Body Mass Index 30.1 12/03/2021 9:02 AM BUFFING MACHINE OPERATOR SEMIAUTOMATIC Plan of Treatment Health Maintenance Due Date Last Done Comments COLOGUARD (AGES 45-75) - COLON CA SCREENING 1955 COLON MONITORING 1953 COLONOSCOPY - COLON CA SCREENING 1953 CT COLONOGRAPHY - COLON CA SCREENING 1955 Colorectal Cancer Screening 1953 FIT - COLON CA SCREENING 1953 FLEX SIG - COLON CA SCREENING 1955 MEDICARE AWV 12 MONTHS 1955 HEPATITIS C SCREENING 04/04/1971 Respiratory Syncytial Virus (RSV) Vaccine Pt: or over 60 yrs (1 - Risk 60-74 years 1-dose series) 2013 AAA SCREENING 2018 PNEUMOCOCCAL VACCINE 50+ (2 of 2 - PCV) 09/25/2021 09/25/2020, 07/13/2008 DIABETES RETINOPATHY SCREENING 12/03/2021 04/05/2016, 07/29/2013, 08/21/2012, Additional history exists DIABETES-FOOT EXAM WITH MONOFILAMENT 12/03/2021 DIABETES-HGB A1C 03/13/2022 09/12/2021, 03/03/2021 DIABETES-SERUM CREATININE 09/12/2022 09/12/2021, DTAP/TDAP/TD VACCINES (2 - Td or Tdap) 2023 2013, 10/06/2004 COVID-19 VACCINE ( season) 2024 08/04/2022, 07/16/2021, 01/13/2021, Additional history exists INFLUENZA VACCINE (#1) 2024 DEPRESSION SCREENING 10/13/2024 DIABETES - URINE PROTEIN SCREENING 10/13/2024 ZOSTER VACCINE Completed 12/04/2020, 09/12, 2013 HEPATITIS B VACCINE Aged Out No longe r eligible based on patient's age to complete this topic HIB VACCINE Aged Out No longer eligi ble based on patient's age to complete this topic HPV VACCINE Aged Out No longer eligi ble based on patient's age to complete this topic MENINGOCOCCAL (Group B) VACCINE Aged Out No longer eligible based on patient's age to complete this topic MENINGOCOCCAL VACCINE Aged Out No henry brisa eligible based on patient's age to complete this topic Procedures Procedure Name Priority Date/Time Associated Diagnosis Comments BASIC METABOLIC PANEL (CALCIUM TOTAL) STAT 09/12/2021 3:12 AM BUFFING MACHINE OPERATOR SEMIAUTOMATIC HEMOGLOBIN A1C ENA 09/12/2021 3:12 AM BUFFING MACHINE OPERATOR SEMIAUTOMATIC from Last 3 Months or Most Recently Relevant to Health Maintenance Results * (ABNORMAL) HEMOGLOBIN A1C (09/12/2021 3:12 AM BUFFING MACHINE OPERATOR SEMIAUTOMATIC) Hemoglobin A1c 7.0(H) 4.4 - 6.3 % 09/12/2021 11:20 AM [facility] Estimated Average Glucose 154 mg/dL 09/12/2021 11:20 AM [facility] Comment: HbA1c Interpretation: Treatment target values recommended by ADA and other clinical organizations should be used to evaluate metabolic control in patients. Treatment Target Values: Normal : < 5.7% Pre-diabetes: 5.7-6.4% Diabetes: Equal to or greater than 6.5% Reference: [place] Diabetes Association Standards of Care in Diabetes -2014 In patients 70 years and older consider HbA1c target range of 7.0-7.5% Reference: Diabetes Mellitus in Older People: Position Statement on behalf of the International Association of Gerontology and Geriatrics (IAGG), the Diabetes Working Alliance Party for Older People (EDWPOP), and the International Task Force of Experts in Diabetes. Mickey Irvin, et al. J [place] Medical Directors Association. 2012 Test results diagnostic of diabetes should be repeated for confirmation. The Sebia Capillary 2 assay for the measurement of HbA1c is a National Glycohemoglobin Standardization Program (NGSP)certified method. Blood BLOOD SPECIMEN / Unknown Venipuncture / Unknown 09/12/2021 3:12 AM BUFFING MACHINE OPERATOR SEMIAUTOMATIC 09/12/2021 3:15 AM BUFFING MACHINE OPERATOR SEMIAUTOMATIC Oziel Phillip MD LAB - CHEMISTR Y ORDERABLES [facility] [address] [place] [address], [facility] [phone] * (ABNORMAL) BASIC METABOLIC PANEL (CALCIUM TOTAL) (09/12/2021 3:12 AM BUFFING MACHINE OPERATOR SEMIAUTOMATIC) BUN 17 7 - 26 mg/dL 09/12/2021 3:40 AM [facility] Creatinine 1.28(H) 0.71 - 1.16 mg/dL 09/12/2021 3:40 AM [facility] Sodium 144 136 - 145 mmol/L 09/12/2021 3:40 AM [facility] Potassium 4.1 3.5 - 4.5 mmol/L 09/12/2021 3:40 AM [facility] Chloride 107 98 - 107 mmol/L 09/12/2021 3:40 AM [facility] CO2 23 22 - 29 mmol/L 09/12/2021 3:40 AM [facility] Glucose 172(H) 70 - 115 mg/dL 09/12/2021 3:40 AM [facility] Calcium 9.7 8.4 - 10.2 mg/dL 09/12/2021 3:40 AM [facility] Anion Gap 18 8 - 18 09/12/2021 3:40 AM [facility] BUN/Creatinine Ratio 13 7 - 23 09/12/2021 3:40 AM [facility] Osmolality Calculated 304(H) 270 - 300 mOsm/kg 09/12/2021 3:40 AM [facility] eGFR by CKD-EPI 57(L) >=90 mL/min/1.7 3 m2 09/12/2021 3:40 AM [facility] Blood BLOOD SPECIMEN / Unknown Venipuncture / Unknown 09/12/2021 3:12 AM BUFFING MACHINE OPERATOR SEMIAUTOMATIC 09/12/2021 3:15 AM BUFFING MACHINE OPERATOR SEMIAUTOMATIC Oziel Phillip MD LAB - CHEMISTR Y ORDERABLES [facility] [address] [place] [address], [facility] [phone] from Last 3 Months or Most Recently Relevant to Health Maintenance Advance Directives * Full Code (Latest Code Status on File) Date Activated Date Inactivated Comments 09/12/2021 1:49 AM 09/12/2021 6:30 PM Care Teams Canning Machine Operator Relationship Specialty Start Date End Date [facility] [address] [facility] [address] PCP - General 06/21/20
[2024-12-03 11:50] VITALS: BP 117/76; PULSE 82; RESP 18; TEMP 35.7; O2SAT 98; BMI 26.8
[2024-12-03 12:20] LABS: Glucose Point of Care 100 mg/dl (65-105)
[2024-12-03] MEDS: LACTATED RINGERS 1,000 ML 150 ML IV CONT (12:20)
--- NOTE | 2024-12-03 12:49 | WPDANESEPPF ---
Anes - Initial Pre Proc Eval Procedure: Operation Date: 12/03/24 12:30 Proposed Procedures p Screening Colonoscopy - Anselmo Bermudez MD Date/Time: 12/03/24 12:49 Surgeon: Anselmo Bermudez MD Pre Op Diagnosis: Screening Patient Data Age: 69 Gender: M Height: 1.75 m Weight: 82.3 kg Last Vital Signs Temp 96.3 F L 12/03/24 11:50 Pulse 82 12/03/24 11:50 Resp 18 12/03/24 11:50 BP 117/76 12/03/24 11:50 Pulse Ox 98 12/03/24 11:50 O2 Del Method Room Air 12/03/24 11:50 Allergies Allergy/AdvReac Type Severity Reaction Status Date / Time hydrocodone (From Vicodin) Allergy Hives Verified 12/03/24 11:59 Penicillins AdvReac Fainting Verified 12/03/24 11:59 Home Medications ?Medication ?Instructions ?Recorded ?Confirmed ?Type aspirin 81 mg tablet,delayed 81 mg PO DAILY 10/31/22 12/03/24 History release cholecalciferol (vitamin D3) 50 50 mcg PO DAILY 10/31/22 12/03/24 History mcg (2,000 unit) tablet ezetimibe 10 mg tablet 10 mg PO DAILY 10/31/22 12/03/24 History gabapentin 600 mg tablet 600 mg PO TID 10/31/22 12/03/24 History insulin syringe-needle U-100 1 mL 10/31/22 11/30/24 History 30 gauge x 1/2 (BD Insulin Syringe Ultra-Fine) lisinopril 40 mg tablet 40 mg PO DAILY 10/31/22 12/03/24 History pantoprazole 40 mg tablet,delayed 40 mg PO HS 10/31/22 12/03/24 History release pravastatin 40 mg tablet 40 mg PO QAM 10/31/22 12/03/24 History carvedilol 3.125 mg tablet 3.125 mg PO BID #60 tabs 11/05/22 12/03/24 Rx acetaminophen 500 mg tablet 1,000 mg (2 x 500 mg) PO TID PRN 02/11/23 12/03/24 Rx annalisa 7 days #42 tabs melatonin 10 mg capsule 10 mg PO QHS 06/03/23 12/03/24 History insulin glargine 100 unit/mL 30 unit subcut HS 12/02/23 12/03/24 History subcutaneous solution (Lantus U-100 Insulin) empagliflozin 25 mg tablet 25 mg PO DAILY 06/01/24 12/03/24 History dulaglutide 1.5 mg/0.5 mL 1.5 mg subcut WEEKLY 07/07/24 12/03/24 History subcutaneous pen injector (Trulicity) cyclobenzaprine 5 mg tablet 5 mg PO TID PRN muscle spasm 11/24/24 12/03/24 History metformin 500 mg tablet,extended 500 mg PO DAILY 11/24/24 12/03/24 History release 24 hr trazodone 100 mg tablet 100 mg PO QHS 11/24/24 12/03/24 History Laboratory Tests 12/03/24 12:11 POC Capillary Glucose 100 mg/dl (65-105) Patient hx anesthesia problems: none Family hx anesthesia problems: none Results Review: All pre-operative results and documents have been reviewed as part of the pre-operative evaluation. [facility] Past Medical History Medical History Tobacco use disorder, continuous Chronic kidney disease Essential hypertension Hyperlipidemia HTN (hypertension) Diabetes mellitus Surgical History Surgical History S/P cubital tunnel release Right History of carpal tunnel release Status post cataract extraction of both eyes with insertion of intraocular lens History of tonsillectomy and adenoidectomy History of arthroscopy of left shoulder History of shoulder surgery Right shoulder reconstruction due to advance arthritis History of neck surgery X3 Family History Family History Sibling Liver cancer Lung cancer Mother Cerebrovascular accident Father Suicide Other Family history of cardiovascular disease Family history of chronic obstructive pulmonary disease Family history of malignant neoplasm Hypertension Social History Social History Social History: He is . Smoking packs per day: 1.5 Smoking cigarettes per day: 30.0 Years smoked: 50 Smoking pack-years: 75.00 Smoking status: Current every day smoker Tobacco type: cigarettes Alcohol intake: current Drinks per week: 12 Alcohol use details: He drinks 12 shots every Friday. Substance use: never Substance use type: does not use Other substance usage details: pack and a half daily smoker Do You Feel Safe in your Home?: Yes Lack of Transportation: No Lack of Food: Never True Current Housing: I Have Housing Concerned About Future Housing: No Difficulty Paying Gas/Electric Bills: No Difficulty Paying for Meds: No Currently Unemployed: No Education: High School Diploma/GED Difficulty w/ Childcare or Family Care: No Living arrangements: with family Gender identity (if verbalized by the patient): Male Sexual Orientation (if Verbalized by the Patient): Straight or Heterosexual Spiritual care concerns: No Agree to blood products: Yes Anes - Eval Final PreProcedure Day of Procedure 12/03/24 12:49 Patient weight: overweight Lungs: normal air movement Airway: Mallampati scale class II Neurological: alert and oriented Last oral intake: >/= 8 hours ASA classification: III Emergent: no Anesthetic plan: proceed Anesthesia type and monitoring: general GIVS and standard monitoring Results Review: All pre-operative results and documents have been reviewed as part of the pre-operative evaluation. HTN, hyperlipidemia, DM fsbs 100, CKD, heavy smoker, 1.5 ppd and did smoke this am, ETOH 1 drink/week. Informed Consent: The patient's anesthetic plan and its attendant risks and benefits were discussed with the patient/family/POA. Questions were solicited and answers provided to the satisfaction of the patient/family/POA.
--- NOTE | 2024-12-03 12:58 | PM.IMHP ---
H&P: HPI History of Present Illness Date/Time: 12/03/24 12:58 Chief Complaint: History of colon polyps Narrative: The patient has a history of colonic polyps, the last colonoscopy was about 5 years ago. Review of Systems Review of Systems: All systems reviewed & are unremarkable except as noted in HPI and below PMFSH Past Medical History Medical History Tobacco use disorder, continuous Chronic kidney disease Essential hypertension Hyperlipidemia HTN (hypertension) Diabetes mellitus Surgical History Surgical History S/P cubital tunnel release Right History of carpal tunnel release Status post cataract extraction of both eyes with insertion of intraocular lens History of tonsillectomy and adenoidectomy History of arthroscopy of left shoulder History of shoulder surgery Right shoulder reconstruction due to advance arthritis History of neck surgery X3 Family History Family History Sibling Liver cancer Lung cancer Mother Cerebrovascular accident Father Suicide Other Family history of cardiovascular disease Family history of chronic obstructive pulmonary disease Family history of malignant neoplasm Hypertension Social History Social History Social History: He is . Smoking packs per day: 1.5 Smoking cigarettes per day: 30.0 Years smoked: 50 Smoking pack-years: 75.00 Smoking status: Current every day smoker Tobacco type: cigarettes Alcohol intake: current Drinks per week: 12 Alcohol use details: He drinks 12 shots every Friday. Substance use: never Substance use type: does not use Other substance usage details: pack and a half daily smoker Do You Feel Safe in your Home?: Yes Lack of Transportation: No Lack of Food: Never True Current Housing: I Have Housing Concerned About Future Housing: No Difficulty Paying Gas/Electric Bills: No Difficulty Paying for Meds: No Currently Unemployed: No Education: High School Diploma/GED Difficulty w/ Childcare or Family Care: No Living arrangements: with family Gender identity (if verbalized by the patient): Male Sexual Orientation (if Verbalized by the Patient): Straight or Heterosexual Spiritual care concerns: No Agree to blood products: Yes Meds Home Medications and Allergies Home Medications ?Medication ?Instructions ?Recorded ?Confirmed ?Type aspirin 81 mg tablet,delayed 81 mg PO DAILY 10/31/22 12/03/24 History release cholecalciferol (vitamin D3) 50 50 mcg PO DAILY 10/31/22 12/03/24 History mcg (2,000 unit) tablet ezetimibe 10 mg tablet 10 mg PO DAILY 10/31/22 12/03/24 History gabapentin 600 mg tablet 600 mg PO TID 10/31/22 12/03/24 History insulin syringe-needle U-100 1 mL 10/31/22 11/30/24 History 30 gauge x 1/2 (BD Insulin Syringe Ultra-Fine) lisinopril 40 mg tablet 40 mg PO DAILY 10/31/22 12/03/24 History pantoprazole 40 mg tablet,delayed 40 mg PO HS 10/31/22 12/03/24 History release pravastatin 40 mg tablet 40 mg PO QAM 10/31/22 12/03/24 History carvedilol 3.125 mg tablet 3.125 mg PO BID #60 tabs 11/05/22 12/03/24 Rx acetaminophen 500 mg tablet 1,000 mg (2 x 500 mg) PO TID PRN 02/11/23 12/03/24 Rx annalisa 7 days #42 tabs melatonin 10 mg capsule 10 mg PO QHS 06/03/23 12/03/24 History insulin glargine 100 unit/mL 30 unit subcut HS 12/02/23 12/03/24 History subcutaneous solution (Lantus U-100 Insulin) empagliflozin 25 mg tablet 25 mg PO DAILY 06/01/24 12/03/24 History dulaglutide 1.5 mg/0.5 mL 1.5 mg subcut WEEKLY 07/07/24 12/03/24 History subcutaneous pen injector (Trulicity) cyclobenzaprine 5 mg tablet 5 mg PO TID PRN muscle spasm 11/24/24 12/03/24 History metformin 500 mg tablet,extended 500 mg PO DAILY 11/24/24 12/03/24 History release 24 hr trazodone 100 mg tablet 100 mg PO QHS 11/24/24 12/03/24 History Allergies Allergy/AdvReac Type Severity Reaction Status Date / Time hydrocodone (From Vicodin) Allergy Hives Verified 12/03/24 11:59 Penicillins AdvReac Fainting Verified 12/03/24 11:59 Vital Signs Vital Signs - 24 hr 12/03/24 11:50 Temperature 96.3 F L Pulse Rate 82 Respiratory Rate 18 Blood Pressure 117/76 Pulse Oximetry 98 Oxygen Delivery Room Air Exam Const: General: cooperative and healthy appearing Resp: Effort & Inspection: normal respiratory effort and able to speak in complete sentences Auscultation: clear to auscultation bilaterally Cardio: Rate: regular rate Rhythm: regular rhythm GI: Inspection: normal to inspection GI Palp: No No hepatosplenomegaly present Auscultation: normal bowel sounds Rectal Exam: deferred Skin: General skin exam: normal color Psych: Appearance: grossly normal Mental Status: mental status grossly normal Assessment and Plan Assessment and plan (1) History of colonic polyps: Code(s): Z86.0100 - Personal history of colon polyps, unspecified Status: Acute Assessment and Plan: The patient is deemed a good candidate for the procedure. Consent signed. Will proceed.
[2024-12-03 13:21] VITALS: BP 91/58; PULSE 81; RESP 19; O2SAT 96
[2024-12-03 13:31] VITALS: BP 103/61; PULSE 75; RESP 18; O2SAT 96
[2024-12-03 13:41] VITALS: BP 103/67; PULSE 71; RESP 15; O2SAT 97
[2024-12-03 13:45] LABS: Glucose Point of Care 86 mg/dl (65-105)
== END 2024-12-03 13:58 | disposition home or self-care (01) ==
PROVIDERS: Visit Provider Internal Medicine Gastroenterology
PROC: 0DJD8ZZ Inspection of Lower Intestinal Tract, Via Natural or Artificial Opening Endoscopic (ICD-10-PCS; CPT 45378; principal; 2024-12-03 12:30)
DX: Z12.11 Encounter for screening for malignant neoplasm of colon (principal); K63.5 Polyp of colon; K64.8 Other hemorrhoids; E78.5 Hyperlipidemia, unspecified; E11.22 Type 2 diabetes mellitus with diabetic chronic kidney disease; I12.9 Hypertensive chronic kidney disease with stage 1 through stage 4 chronic kidney disease, or unspecified chronic kidney disease; N18.9 Chronic kidney disease, unspecified; F17.210 Nicotine dependence, cigarettes, uncomplicated; Z79.82 Long term (current) use of aspirin; Z79.4 Long term (current) use of insulin; Z79.84 Long term (current) use of oral hypoglycemic drugs; Z79.85 Long-term (current) use of injectable non-insulin antidiabetic drugs; Z98.890 Other specified postprocedural states; Z98.1 Arthrodesis status; Z80.0 Family history of malignant neoplasm of digestive organs; Z82.49 Family history of ischemic heart disease and other diseases of the circulatory system
CPT/HCPCS: 45385; 82948; 88305; J2003; J2704; J7120

== ENCOUNTER 2025-03-24 12:36 | Outpatient (CLI) | payer MEDICARE, OTHER, SELFPAY ==
--- NOTE | 2025-03-24 | ECHO_ITS ---
Patient Info Name: Maikel Campos Age: 69 years : 1955 Gender: Male Ht: 69 in Wt: 175 lbs BSA: 1.98 m2 HR: 83 bpm BP: 143 / 89 mmHg Technical Quality: Good Exam Date: 03/24/2025 12:51 PM Patient Status: O Admit Date: 03/24/2025 Exam Type: CA echo doppler color flow Complete two-dimensional, color flow and Doppler transthoracic echocardiogram is performed. Caramel Candy Maker: Sarah Dong Attending Provider: Yann Dubon Summary 1. Complete two-dimensional, color flow and Doppler transthoracic echocardiogram is performed. 2. There is normal biventricular size and systolic function. 3. There is moderate aortic stenosis. Left Ventricle The left ventricle is normal in size and systolic function. The left ventricular ejection fraction is visually estimated to be 60-65%. Right Ventricle The right ventricle is normal in size and systolic function. Left Atria The left atrium is normal size. Right Atria The right atrium is normal size. Atrial Septum The atrial septum is not well visualized. Aortic Valve The aortic valve is trileaflet and calcified. There is moderate aortic stenosis. There is no aortic regurgitation. Pulmonic Valve The pulmonic valve is not well visualized. There is trace pulmonic valve regurgitation. Mitral Valve The mitral valve leaflets are sclerotic. There is no mitral stenosis. There is moderate mitral regurgitation. The degree of mitral regurgitation may be underestimated secondary to the eccentric nature of the jet. Tricuspid Valve The tricuspid valve is grossly normal. Pericardium/Pleural Pericardium is normal in appearance with no evidence for significant pericardial effusion. Inferior Vena Cava Inferior vena cava is not well visualized. Aorta The aortic root at the level of the sinus of Valsalva measures 2.9 cm in diameter. Left Ventricular Outflow Tract Name Value Normal LVOT 2D LVOT Diameter 2.0 cm LVOT Doppler LVOT Peak Velocity 69 cm/s LVOT Peak Gradient 2 mmHg LVOT Mean Gradient 1 mmHg LVOT VTI 16 cm LVOT VTI/AV VTI Ratio 0.3 LVOT Stroke Volume 47 ml LVOT CO 2.8 l/min LVOT CI 1.4 l/min/m2 Pulmonic Valve Name Value Normal RVOT Doppler RVOT Peak Velocity 48 cm/s RVOT Peak Gradient 1 mmHg PV Doppler PV Peak Velocity 84 cm/s PV Peak Gradient 3 mmHg Mitral Valve Name Value Normal MV Diastolic Function MV E Peak Velocity 73 cm/s MV A Peak Velocity 57 cm/s MV E/A 1.3 MV Decel Time (PW) 146 ms Tricuspid Valve Name Value Normal TV Regurgitation Doppler TR Peak Velocity 208 cm/s TR Peak Gradient 17 mmHg Estimated PAP/RSVP RA Pressure 10 mmHg <=5 PA Systolic Pressure 27 mmHg <36 RV Systolic Pressure 27 mmHg <36 Aorta Name Value Normal Ascending Aorta Ao Root Diameter (MM) 3.3 cm Ao Root Diam Index (MM) 1.7 cm/m2 Aortic Valve Name Value Normal AV Doppler AV Peak Velocity 188 cm/s AV Peak Gradient 14 mmHg AV Mean Gradient 8 mmHg AV VTI 46 cm AV Area (Cont Eq VTI) 1.0 cm2 >=3.0 AV Area (Cont Eq Oscar) 1.1 cm2 AV DI (Oscar) 0.37 AV Regurgitation 2D LVOT Area 3.0 cm2 Ventricles Name Value Normal LV Dimensions 2D/MM IVS Diastolic Thickness (2D) 1.0 cm 0.6-1.0 IVS Diastole Thickness (MM) 0.6 cm 0.6-1.0 LVID Diastole (2D) 4.4 cm 4.2-5.8 LVID Diastole (MM) 4.4 cm 4.2-5.8 LVIW Diastolic Thickness (2D) 1.1 cm 0.6-1.0 LVIW Diastolic Thickness (MM) 1.0 cm 0.6-1.0 LVID Systole (2D) 3.1 cm 2.5-4.0 LVID Systole (MM) 3.1 cm 2.5-4.0 LVOT Diameter 2.0 cm LV Mass (2D Cubed) 159.22 g 88.00-224.00 LV Mass Index (2D Cubed) 81 g/m2 49-115 Relative Wall Thickness (2D) 0.49 <=0.42 LV Mass (MM Cubed) 111.19 g 88.00-224.00 LV Mass Index (MM Cubed) 56 g/m2 49-115 Relative Wall Thickness (MM) 0.44 LV Fractional Shortening/Ejection Fraction 2D/MM LV Fractional Shortening (2D) 29 % 25-43 LV Fractional Shortening (MM) 29 % 25-43 LV EF (MM Teichholz) 57 % LV EF (2D Teichholz) 56 % LV Diastolic Volume (4C MOD) 89 ml LV EF (4C MOD) 69 % LV Diastolic Volume (2C MOD) 72 ml LV EF (2C MOD) 56 % LV Diastolic Volume (BP MOD) 80 ml 62-150 LV Diastolic Volume Index (BP MOD) 40 ml/m2 34-74 LV Systolic Volume (BP MOD) 30 ml 21-61 LV Systolic Volume Index (BP MOD) 15 ml/m2 11-31 LV EF (BP MOD) 62 % 52-72 LV Diastolic Length (4C) 8.3 cm LV Systolic Length (4C) 7.4 cm LV Stroke Volume (4C MOD) 61 ml Atria Name Value Normal LA Dimensions LA Dimension (MM) 4.2 cm 3.0-4.0 LA Volume (4C A-L) 31 ml LA Volume (BP A-L) 35 ml RA Dimensions RA Systolic [employer] Length (4C) 5.1 cm 2.1-2.7 RA Area (4C) 11.8 cm2 <=18.0 Report Signatures
--- OUTSIDE RECORDS SUMMARY | 2025-03-24 13:02 | XMS_ITS | Clinical Summary ---
Author Organization [facility] Address [address] [place] [address] Care Team Providers Care Training And Development Specialist Name Role Phone [address] Primary Care Prov ider Source Comments [facility],non-owned Affiliates and Associated Physician Practices is amultiple site organization consisting of ambulatory clinics and hospital sitesin [place], [place], [place] and [place]. This disclosure is being madepursuant to the Care Everywhere program and may not contain all information available regarding this patient. Last updated 18.[facility] Allergies Active Allergy Reactions Criticality Noted Date Comments Hydrocodone-Acetaminophen Rash Medium 06/27/2020 Penicillins Other 06/27/2020 Pt unsure of reaction/childhood reaction Medications * Be aware that medications may not be up to date on this document. Alwaysverify current medications with the patient. zolpidem (AMBIEN) 10 MG tablet 04/12/2020 Active JANUMET XR 50-1000 MG tablet 06/19/2020 Active JANUVIA 50 MG tablet 05/01/2020 Active pravastatin (PRAVACHOL) 40 MG tablet 06/19/2020 Active pantoprazole EC (PROTONIX) 40 MG tablet 06/08/2020 Active lisinopril (PRINIVIL; ZESTRIL) 40 MG tablet 05/01/2020 Active LANTUS vial 06/08/2020 Active GLUCAGON EMERGENCY injection 06/21/2020 Active gabapentin (NEURONTIN) 600 MG tablet 04/10/2020 Active ezetimibe (ZETIA) 10 MG tablet 05/15/2020 Active Vitamin D3, cholecalciferol, 50 MCG (2000 UT) tablet 06/19/2020 Active ASPIRIN LOW DOSE 81 MG tablet 06/19/2020 Active amLODIPine (NORVASC) 10 MG tablet 05/01/2020 Active carvedilol (COREG) 3.125 MG tablet 05/15/2020 Act julian cyclobenzaprine (FLEXERIL) 5 MG tablet 03/08/2020 Active JARDIANCE 10 MG tablet 06/08/2020 Active Active Problems Problem Noted Date Diagnosed Date [...] radiculopathy 08/07/2020 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 Immunizations Immunization Administration Dates Next Due PNEUMOCOCCAL PPSV23 09/25/2020,07/13/2008 [...] at Not on file Legal Sex Male 6:56 PM CARE GIVER Gender Identity Not on file Sexual Orientation Not on file Last Filed Vital Signs Vital Sign Reading Time Taken Comments Blood Pressure 125/64 09/12/2021 3:39 PM CARE GIVER Pulse 88 09/12/2021 3:39 PM CARE GIVER Temperature 37.4 C (99.3 F) 09/11/2021 9:43 PM CARE GIVER Respiratory Rate 12 09/12/2021 3:39 PM CARE GIVER Oxygen Saturation 95% 09/12/2021 3:39 PM CARE GIVER Inhaled Oxygen Concentration - - Weight 92.4 kg (203 lb 12.8 oz) 12/03/2021 9:02 AM CARE GIVER Height 175.3 cm (5' 9) 12/03/2021 9:02 AM CARE GIVER Body Mass Index 30.1 12/03/2021 9:02 AM CARE GIVER Plan of Treatment Health Maintenance Due Date [...] 2024 08/04/2022, 07/16/2021, 01/13/2021, Additional history exists DEPRESSION SCREENING 10/13/2024 DIABETES - URINE PROTEIN SCREENING 10/13/2024 INFLUENZA VACCINE (Season Ended) 2025 ZOSTER VACCINE Completed 12/04/2020, 09/12, 2013 HEPATITIS B VACCINE Aged Out No longe r eligible based on patient's age to complete this topic HIB VACCINE Aged Out No longer eligi ble based on patient's age to complete this topic HPV VACCINE Aged Out No longer eligi ble based on patient's age to complete this topic MENINGOCOCCAL (Group B) VACCINE SHARED DECISION-MAKING Aged Out No longer eligible based on patient's age to complete this topic MENINGOCOCCAL GROUPS A/C/Y/W VACCINE Aged Out No longer eligible based on patient's age to complete this topic Procedures Procedure Name Priority Date/Time Associated Diagnosis Comments BASIC METABOLIC PANEL (CALCIUM TOTAL) STAT 09/12/2021 3:12 AM CARE GIVER HEMOGLOBIN A1C ENA 09/12/2021 3:12 AM CARE GIVER from Last 3 Months or Most Recently Relevant to Health Maintenance Results * (ABNORMAL) HEMOGLOBIN A1C (09/12/2021 3:12 AM CARE GIVER) Hemoglobin A1c 7.0(H) 4.4 - 6.3 % 09/12/2021 11:[address] [facility] Estimated Average Glucose 154 mg/dL 09/12/2021 11:[address] [facility] Comment: HbA1c Interpretation: Treatment target values recommended by ADA and other clinical organizations should be used to evaluate metabolic control in patients. Treatment Target Values: Normal : < 5.7% Pre-diabetes: 5.7-6.4% Diabetes: Equal to or greater than 6.5% Reference: [place] Diabetes Association Standards of Care in Diabetes -2014 In patients 70 years and older consider HbA1c target range of 7.0-7.5% Reference: Diabetes Mellitus in Older People: Position Statement on behalf of the International Association of Gerontology and Geriatrics (IAGG), the Diabetes Working Green Party for Older People (EDWPOP), and the International Task Force of Experts in Diabetes. Mickey Irvin et al. J [place] [employer] Association. 2012 Test results diagnostic of diabetes should be repeated for confirmation. The Sebia Capillary 2 assay for the measurement of HbA1c is a National Glycohemoglobin Standardization Program (NGSP)certified method. Blood BLOOD SPECIMEN / Unknown Venipuncture / Unknown 09/12/2021 3:12 AM CARE GIVER 09/12/2021 3:15 AM CARE GIVER Oziel Phillip MD LAB - CHEMISTRY ORDERA BLES Final Result [facility] [address] [place] [id number], [facility] [phone] * (ABNORMAL) BASIC METABOLIC PANEL (CALCIUM TOTAL) (09/12/2021 3:12 AM CARE GIVER) BUN 17 7 - 26 mg/dL 09/12/2021 3:40 AM [facility] Creatinine 1.28(H) 0.71 - 1.16 mg/dL 09/12/2021 3:40 AM [facility] Sodium 144 136 - 145 mmol/L 09/12/2021 3:40 AM [facility] Potassium 4.1 3.5 - 4.5 mmol/L 09/12/2021 3:40 AM [facility] Chloride 107 98 - 107 mmol/L 09/12/2021 3:40 AM [facility] CO2 23 22 - 29 mmol/L 09/12/2021 3:40 AM [facility] Glucose 172(H) 70 - 115 mg/dL 09/12/2021 3:40 AM [facility] Calcium 9.7 8.4 - 10.2 mg/dL 09/12/2021 3:40 AM [facility] Anion Gap 18 8 - 18 09/12/2021 3:40 AM [facility] BUN/Creatinine Ratio 13 7 - 23 09/12/2021 3:40 AM [facility] Osmolality Calculated 304(H) 270 - 300 mOsm/kg 09/12/2021 3:40 AM [facility] eGFR by CKD-EPI 57(L) >=90 mL/min/1.7 3 m2 09/12/2021 3:40 AM [facility] Blood BLOOD SPECIMEN / Unknown Venipuncture / Unknown 09/12/2021 3:12 AM CARE GIVER 09/12/2021 3:15 AM [facility] us Oziel Phillip MD LAB - CHEMISTRY ORDERA BLES Final Result [facility] [address] [place] [address], [facility] [phone] from Last 3 Months or Most Recently Relevant to Health Maintenance Insurance MEDICARE [facility] MEDICARE SELF PAY NO INSURANCE Member Subscriber Plan / Payer (Ef fective for All Dates) Name:Josh Peterson III Member ID:Not on file Relation to Subscriber:Not on file Name:JOSH PETERSON III Subscriber ID:Not on file (Home) Address: [address] [place] [id number] Payer ID:Not on file Group ID:Not on file Type:Self Pay Address: [place], [place] Advance Directives * Full Code (Latest Code Status on File) Date Activated Date Inactivated Comments 09/12/2021 1:49 AM 09/12/2021 6:30 PM Care Teams Training And Development Specialist Relationship Specialty Start Date End Date [facility], [facility] [address] [place] [address] PCP - General 06/21/20
--- OUTSIDE RECORDS SUMMARY | 2025-03-24 13:02 | XMS_ITS | Encounter Summary ---
Author Organization [facility] Address [address] [place] [address] Care Team Providers Care Wood Type Cutter Name Role Phone [address] Primary Care Prov ider Encounter Details Date Type Department Care Team (Late st Contact Info) Description 08/07/2020 [facility] Outpatient Visit [facility] [address] [place] [address] Lionel Live MD [address] [place] [address] Social History Tobacco Use Types Packs/Day Years Used Date Smoking Tobacco: Every Day Cigarettes Smokeless Tobacco: Never Alcohol Use Standard Drinks/Week Comments Yes 0 (1 standard drink = 0.6 oz pur e alcohol) Sex and Gender Information Value Date Recorded Sex Assigned at Not on file Legal Sex Male 6:56 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
== END 2025-03-24 12:37 | disposition home or self-care (01) ==
PROVIDERS: Visit Provider Internal Medicine
DX: I35.0 Nonrheumatic aortic (valve) stenosis (principal); R01.1 Cardiac murmur, unspecified
CPT/HCPCS: 93306

== ENCOUNTER 2025-05-16 08:46 | Outpatient (CLI) | payer MEDICARE, OTHER, SELFPAY ==
--- OUTSIDE RECORDS SUMMARY | 2025-05-16 08:50 | XMS_ITS | Clinical Summary ---
Author Organization [facility] Address [address] [place] [address] Care Team Providers Care Window Draper Name Role Phone [address] Primary Care Prov ider Source Comments [facility],non-owned Affiliates and Associated Physician Practices is amultiple site organization consisting of ambulatory clinics and hospital sitesin [place], [place], [place] and [place]. This disclosure is being madepursuant to the Care Everywhere program and may not contain all information available regarding this patient. Last updated 18.[facility] Allergies Active Allergy Reactions Criticality Noted Date [...] on file Legal Sex Male 6:56 PM FIREFIGHTER Gender Identity Not on file Sexual Orientation Not on file Last Filed Vital Signs Vital Sign Reading Time Taken Comments Blood Pressure 125/64 09/12/2021 3:39 PM FIREFIGHTER Pulse 88 09/12/2021 3:39 PM FIREFIGHTER Temperature 37.4 C (99.3 F) 09/11/2021 9:43 PM FIREFIGHTER Respiratory Rate 12 09/12/2021 3:39 PM FIREFIGHTER Oxygen Saturation 95% 09/12/2021 3:39 PM FIREFIGHTER Inhaled Oxygen Concentration - - Weight 92.4 kg (203 lb 12.8 oz) 12/03/2021 9:02 AM FIREFIGHTER Height 175.3 cm (5' 9) 12/03/2021 9:02 AM FIREFIGHTER Body Mass Index 30.1 12/03/2021 9:02 AM FIREFIGHTER Plan of Treatment Health Maintenance Due Date [...] - URINE PROTEIN SCREENING 10/13/2024 INFLUENZA VACCINE (#1) 2025 ZOSTER VACCINE Completed 12/04/2020, 09/12, 2013 [...] PANEL (CALCIUM TOTAL) STAT 09/12/2021 3:12 AM FIREFIGHTER HEMOGLOBIN A1C ENA 09/12/2021 3:12 AM FIREFIGHTER from Last 3 Months or Most Recently Relevant to Health Maintenance Results * (ABNORMAL) HEMOGLOBIN A1C (09/12/2021 3:12 AM FIREFIGHTER) Hemoglobin A1c 7.0(H) 4.4 - 6.3 % 09/12/2021 11:20 AM FIREFIGHTER [facility] Estimated Average Glucose 154 mg/dL 09/12/2021 11:20 AM FIREFIGHTER [facility] Comment: HbA1c Interpretation: Treatment target values recommended by ADA and other clinical organizations should be used to evaluate metabolic control in patients. Treatment Target Values: Normal : < 5.7% Pre-diabetes: 5.7-6.4% Diabetes: Equal to or greater than 6.5% Reference: [place] [employer] Standards of Care in Diabetes -2014 In patients 70 years and older consider HbA1c target range of 7.0-7.5% Reference: Diabetes Mellitus in Older People: Position Statement on behalf of the International Association of Gerontology and Geriatrics (IAGG), the Diabetes Working Green Party for Older People (EDWPOP), and the International Task Force of Experts in Diabetes. Mickey Irvin et al. J [place] [employer] Association. 2012 Test results diagnostic of diabetes should be repeated for confirmation. The Sebia Capillary 2 assay for the measurement of HbA1c is a National Glycohemoglobin Standardization Program (NGSP)certified method. Blood BLOOD SPECIMEN / Unknown Venipuncture / Unknown 09/12/2021 3:12 AM FIREFIGHTER 09/12/2021 3:15 AM FIREFIGHTER Oziel Phillip MD LAB - CHEMISTRY ORDERA BLES Final Result [facility] [address] [place] [id number], [facility] [phone] * (ABNORMAL) BASIC METABOLIC PANEL (CALCIUM TOTAL) (09/12/2021 3:12 AM FIREFIGHTER) BUN 17 7 - 26 mg/dL 09/12/2021 3:40 [address] [facility] Creatinine 1.28(H) 0.71 - 1.16 mg/dL 09/12/2021 3:40 AM [facility] Sodium 144 136 - 145 mmol/L 09/12/2021 3:40 AM [facility] Potassium 4.1 3.5 - 4.5 mmol/L 09/12/2021 3:40 AM [facility] Chloride 107 98 - 107 mmol/L 09/12/2021 3:40 AM [facility] CO2 23 22 - 29 mmol/L 09/12/2021 3:40 AM [facility] Glucose 172(H) 70 - 115 mg/dL 09/12/2021 3:40 AM [facility] Calcium 9.7 8.4 - 10.2 mg/dL 09/12/2021 3:40 AM [facility] Anion Gap 18 8 - 18 09/12/2021 3:40 AM [facility] BUN/Creatinine Ratio 13 7 - 23 09/12/2021 3:40 AM [facility] Osmolality Calculated 304(H) 270 - 300 mOsm/kg 09/12/2021 3:40 AM [facility] eGFR by CKD-EPI 57(L) >=90 mL/min/1.7 3 m2 09/12/2021 3:40 AM [facility] Blood BLOOD SPECIMEN / Unknown Venipuncture / Unknown 09/12/2021 3:12 AM FIREFIGHTER 09/12/2021 3:15 AM [facility] Oziel Phillip MD LAB - CHEMISTRY ORDERA BLES Final Result [facility] [address] [place] [address], [facility] [phone] from Last 3 Months or Most Recently Relevant to Health Maintenance Insurance MEDICARE [facility] MEDICARE SELF PAY NO INSURANCE Member Subscriber Plan / Payer (Ef fective for All Dates) Name:Josh Peterson III Member ID:Not on file Relation to Subscriber:Not on file Name:JOSH PETERSON III Subscriber ID:Not on file (Home) Address: [address] [place] [id number] Payer ID:Not on file Group ID:Not on file Type:Self Pay Address: [place], [place] Advance Directives * Full Code (Latest Code Status on File) Date Activated Date Inactivated Comments 09/12/2021 1:49 AM 09/12/2021 6:30 PM Care Teams Window Draper Relationship Specialty Start Date End Date [facility], [facility] [address] [place] [address] PCP - General 06/21/20
--- OUTSIDE RECORDS SUMMARY | 2025-05-16 08:50 | XMS_ITS | Patient Health Record ---
Author Organization [facility] Address [address] [place], [place] [id number] Care Team Providers Care Traffic Director Name Role Phone RUFUS PEREZ Unavailable [phone] Reason For Referral No Information Medications Medication SIG (Take, Route, Frequency, Duration) Notes Start Date End Date Status Pravastatin Sodium 10 MG Oral Tablet ORAL pravastatin sodium 10 MG Oral TabletOriginal Medicationpravastatin sodium 10 MG Oral Tablet *Reorder from [email or web address] for eRx and Interaction Alerts* 05/06/2016 Active Gabapentin 100 MG Oral Capsule ORAL gabapentin 100 MG Oral CapsuleOriginal Medicationgabapentin 100 MG Oral Capsule *Reorder from [email or web address] for eRx and Interaction Alerts* 05/06/2016 Active zolpidem tartrate 10 MG Oral Tablet [Ambien] ORAL zolpidem tartrate 10 MG Oral Tablet [Ambien]Original Medicationzolpidem tartrate 10 MG Oral Tablet [Ambien] *Reorder from [email or web address] for eRx and Interaction Alerts* 05/06/2016 Active Lisinopril 20 MG Oral Tablet ORAL lisinopril 20 MG Oral TabletOriginal Medicationlisinopril 20 MG Oral Tablet *Reorder from [email or web address] for eRx and Interaction Alerts* 05/06/2016 Active carvedilol 12.5 MG Oral Tablet [Coreg] ORAL carvedilol 12.5 MG Oral Tablet [Coreg]Original Medicationcarvedilol 12.5 MG Oral Tablet [Coreg] *Reorder from [email or web address] for eRx and Interaction Alerts* 05/06/2016 Active esomeprazole 20 MG Delayed Release Oral Capsule [Nexium] ORAL esomeprazole 20 MG Delayed Release Oral Capsule [Nexium]Original Medicationesomeprazole 20 MG Delayed Release Oral Capsule [Nexium] *Reorder from [facility] for eRx and Interaction Alerts* 05/06/2016 Active amlodipine 10 MG Oral Tablet ORAL amlodipine 10 MG Oral TabletOriginal Medicationamlodipine 10 MG Oral Tablet *Reorder from [facility] for eRx and Interaction Alerts* 05/06/2016 Active aspirin 81 MG Delayed Release Oral Tablet ORAL aspirin 81 MG Delayed Release Oral TabletOriginal Medicationaspirin 81 MG Delayed Release Oral Tablet *Reorder from [facility] for eRx and Interaction Alerts* 05/06/2016 Active insulin glargine 100 UNT/ML Injectable Solution [Lantus] insulin glargine 100 UNT/ML Injectable Solution [Lantus]Original Medicationinsulin glargine 100 UNT/ML Injectable Solution [Lantus] *Reorder from [facility] for eRx and Interaction Alerts* 05/06/2016 Active metformin hydrochloride 1000 MG / sitagliptin 50 MG Oral Tablet [Janumet] ORAL metformin hydrochloride 1000 MG / sitagliptin 50 MG Oral Tablet [Janumet]Original Medicationmetformin hydrochloride 1000 MG / sitagliptin 50 MG Oral Tablet [Janumet] *Reorder from [facility] for eRx and Interacti 05/06/2016 Active ezetimibe 10 MG Oral Tablet [Zetia] ORAL ezetimibe 10 MG Oral Tablet [Zetia]Original Medicationezetimibe 10 MG Oral Tablet [Zetia] *Reorder from [facility] for eRx and Interaction Alerts* 05/06/2016 Active Plan Of Treatment No Information Insurance Providers Payer Name Payer Address Payer Phone Subscriber Number Group Number Insured Name Patient Relationship to Insured Coverage Start Date Coverage End Date Medicare Part B [place] [address] [place] [phone] [id number] JOSH PETERSON III Self - patient is the insured [facility] [address] [place] [address] [id number] JOSH PETERSON III Self - patient is the insured
--- OUTSIDE RECORDS SUMMARY | 2025-05-16 08:50 | XMS_ITS | Encounter Summary ---
Author Organization [facility] Address [address] [place] [address] Care Team Providers Care Silk Spreader Name Role Phone [address] Primary Care Prov ider Encounter Details Date Type Department Care Team (Late st Contact Info) Description 08/07/2020 [facility] Outpatient Visit [facility] [address] [place] [address] Lionel Live MD [address] [place] [address] Social History Tobacco Use Types Packs/Day Years Used Date Smoking Tobacco: Every Day Cigarettes Smokeless Tobacco: Never Alcohol Use Standard Drinks/Week Comments Yes 0 (1 standard drink = 0.6 oz pur e alcohol) Sex and Gender Information Value Date Recorded Sex Assigned at Not on file Legal Sex Male 6:56 PM MEDIA AID Gender Identity Not on file Sexual Orientation Not on file documented as of this encounter Plan of Treatment Not on file documented as of this encounter Visit Diagnoses Not on filedocumented in this encounter Care Teams Silk Spreader Relationship Specialty Start Date End Date [address] [place] [address] PCP - General 06/21/20 documented as of this encounter
--- OUTSIDE RECORDS SUMMARY | 2025-05-16 08:50 | XMS_ITS | Clinical Summary ---
Author Organization [facility] Address [facility] [place] [address] Care Team Providers Care Foam Machine Operator Name Role Phone James Nguyen MD Primary Care Provider [phone] Allergies Active Allergy Reactions Criticality Noted Date Comments Hydrocodone-Acetaminoph en Rash Medium 06/27/2020 Penicillins Other (see comment),Unknown 12/17/2003 Pt unsure of reaction/childhood reaction Medications TRULICITY 1.5 MG/0.5ML injection Inject 1.5 mg into the skin. 05/03/2024 Active gabapentin (NEURONTIN) 600 MG tablet 1 tablet (600 mg total). 04/12/2024 Active GLUCAGON EMERGENCY 1 MG injection 07/10/2023 Active B-D INS SYR ULTRAFINE 1CC/30G 30G X 1/2 1 ML Misc 05/09/2024 Acti ve LIDODERM 5 % 1 patch(es), Topical, Daily, Leave on for up to 12 hours within a 24 hour period (12 hours on, 12 hours off), # 90 patch(es), 3 total refill(s), Maintenance, 1 patch(es) Topical Daily,Instr:L eave on for up to 12 hours within a 24 hour period (12 hours on, 12 hours off), Pharmacy: [facility] 07/10/2023 Active metFORMIN ER (GLUCOPHAGE-XR) 500 MG 24 hr tablet 1 tablet (500 mg total). 02/15/2024 Active pantoprazole EC (PROTONIX) 40 MG tablet Take 1 tablet (40 mg total) by mouth. 03/10/2024 Active tadalafil (CIALIS) 20 MG tablet 1 tablet (20 mg total). 01/14/2024 Active aspirin EC (ECOTRIN) 81 MG tablet Take 1 tablet (81 mg total) by mouth. 08/05/2024 Active carvedilol (COREG) 3.125 MG tablet 09/26/2024 Active Family History Medical History Relation Comments Cancer Father Stroke Mother Relation Status Comments Father Mother Social History Tobacco Use Types Packs/Day Years Used Date Smoking Tobacco: Every Day Cigarettes Passive Smoke Exposure: Never Smokeless Tobacco: Current Tobacco Cessation:Ready to Q uit: Yes; Counseling Given: Yes Alcohol Use Standard Drinks/Week [...] Sign Reading Time Taken Comments Blood Pressure 126/72 12/09/2024 11:38 AM EXTRUSION LINE OPERATOR Pulse 73 12/09/2024 11:38 AM EXTRUSION LINE OPERATOR Temperature 37.1 C (98.8 F) 12/09/2024 11:38 AM EXTRUSION LINE OPERATOR Respiratory Rate - - Oxygen Saturation 98% 12/09/2024 11:38 AM EXTRUSION LINE OPERATOR Inhaled Oxygen Concentration - - Weight 83.6 kg (184 lb 3.2 oz) 12/09/2024 11:38 AM EXTRUSION LINE OPERATOR Height 175.3 cm (5' 9) 12/09/2024 11:38 AM EXTRUSION LINE OPERATOR Body Mass Index 27.2 12/09/2024 11:38 AM EXTRUSION LINE OPERATOR Plan of Treatment Health Maintenance Due Date Last Done Comments Colorectal Cancer Screening Colonoscopy (10 Years) 1955 Hepatitis C 1973 Annual Medicare Wellness Visit 2018 COVID-19 Vaccine ( season) 2024 11/12/2023, 08/04/2022, 07/16/2021, Additional history exists PHQ-2 (Physician [place]) 10/13/2024 06/08/2024 RSV Immunization or 60+ Years (1 - 1-dose 75+ series) 2028 DTaP, Tdap and Td Vaccines (3 - Td or Tdap) 11/08/2034 11/08/2024, 2013, 10/06/2004 Zoster Vaccines Completed 12/04/2020, 09/12, 2013 AAA SCREENING Completed 09/12/2021 Pneumococcal Vaccine: 50+ Years Completed 11/08/2024, 09/25/2020, 07/13/2008 Meningococcal B Vaccine Aged Out No l onger eligible based on patient's age to complete this topic Meningococcal Vaccine Aged Out No henry brisa eligible based on patient's age to complete this topic RSV Immunizations Under 20 Months Aged Out No longer eligible based on patient's age to complete this topic Insurance MEDICARE [facility] Care Teams Foam Machine Operator Relationship Specialty Start Date End Date James Nguyen MD [address] [place] [address] PCP - General 09/04/15
[2025-05-16 09:41] LABS: Albumin Level 4.2 g/dL (3.5-5.1); Anion Gap 5 mmol/L (4-12); Blood Urea Nitrogen 19 mg/dL (9-20); Calcium 9.7 mg/dL (8.4-10.2); Carbon Dioxide 26 mmol/L (22-30); Chloride 104 mmol/L (98-107); Estimated Glomerular Filt Rate > 60; Glucose 92 mg/dL (65-110); Potassium 4.1 mmol/L (3.4-5.0); Sodium 135 mmol/L (137-145)
[2025-05-16 10:30] LABS: Total Protein Urine Random 36 mg/dL; Ur Ttl Prot Creatinine Ratio 0.35 mg/mg (0-0.20)
== END 2025-05-16 08:47 | disposition home or self-care (01) ==
PROVIDERS: Visit Provider Internal Medicine Nephrology
DX: R80.9 Proteinuria, unspecified (principal); E11.9 Type 2 diabetes mellitus without complications; N18.2 Chronic kidney disease, stage 2 (mild)
CPT/HCPCS: 36415; 80069; 82570; 84156